=== PATIENT | female | born 1955 | race Caucasian/White ===

== ENCOUNTER → 2016-08-22 | Outpatient (CLI) | payer BC ==
--- NOTE | 2016-08-27 13:17 | MM ---
Reason for exam: screening (asymptomatic). Last mammogram was performed 6 months ago. History: Patient is postmenopausal. Family history of breast cancer in aunt at age 91. Physical Findings: A clinical breast exam by your physician is recommended on an annual basis and results should be correlated with mammographic findings. MG Screening Mammo w CAD Bilateral CC and MLO view(s) were taken. Prior study comparison: July 11, 2014, bilateral MG screening mammo w CAD. There are scattered fibroglandular densities. There is chronic nodularity in the left breast. There is no discrete abnormality. ASSESSMENT: Negative, BI-RAD 1 RECOMMENDATION: Routine screening mammogram of both breasts in 1 year.
== END | disposition home or self-care (01) ==
LOC: RADMAMWWP 12:54
PROVIDERS: ATTEND Family Medicine
DX: Z12.31 Encounter for screening mammogram for malignant neoplasm of breast (principal)

== ENCOUNTER 2016-12-15 20:00 | Emergency (ER) | payer BC ==
[2016-12-15 20:05] VITALS: RESP 18; TEMP 97.6
--- NOTE | 2016-12-15 21:12 | XR ---
EXAMINATION TYPE: XR chest 2V DATE OF EXAM: 12/15/2016 COMPARISON: June 07, 2012. HISTORY: History COPD. TECHNIQUE: Frontal and lateral views of the chest are obtained. FINDINGS: There is no focal air space opacity, pleural effusion, or pneumothorax seen. The cardiac silhouette size is within normal limits. The osseous structures are intact. IMPRESSION: No acute cardiopulmonary process.
[2016-12-15 21:26] VITALS: BP 134/63; PULSE 71
--- NOTE | 2016-12-15 21:26 | ED ---
General Adult HPI - General Chief complaint: ENT Stated complaint: esophageal obstruction Time Seen by Provider: 12/15/16 20:44 Source: patient, EMS, RN notes reviewed Mode of arrival: EMS Limitations: no limitations - History of Present Illness Initial comments: Chief complaint history of present illness a 61-year-old female here with her . The patient came by and was because she had pork bolus stuck in her distal esophagus. He is able to pass it for over an hour more than in the ride in the ambulance she stated she thinks it may have passed. We confirmed his passage by the having the patient drink a glass of very warm water which she could tell went down into her stomach and did not reflux. - Related Data Home Medications Medication Instructions Recorded Confirmed Budesonide-Formot 160-4.5 Mcg 2 puff INHALATION RT-BID@0700,1900 06/07/15 [Symbicort 160-4.5 Mcg Inhaler] Ca/D3/Mag/Zinc/Micki/Anmol/Mgbor 1 tab PO DAILY 06/07/15 12/15/16 [Caltrate 600+D3+Min Chew Tab] HYDROcodone/APAP 5-325MG [[place] 0.5 tab PO QID PRN 12/15/16 12/15/16 5-325] Multivitamins, Thera [Multivitamin 1 tab PO DAILY 12/15/16 12/15/16 (formulary)] Allergies Allergy/AdvReac Type Severity Reaction Status Date / Time No Known Allergies Allergy Verified 12/15/16 21:16 Review of Systems ROS Statement: Those systems with pertinent positive or pertinent negative responses have been documented in the HPI. Review of systems no headache chest pain shortness of breath GI/ problems with time the patient arrived to the emergency room. Past medical problems significant for having had viral hernia diagnosed by endoscopy. Also some possibility of esophagitis. Other problems include COPD previous PE, diverticulosis. The patient has had bowel resection 2 times. Family history noncontributory no known ALLERGIES. The patient is a former smoker denies alcohol use. ROS Other: All systems not noted in ROS Statement are negative. Past Medical History Past Medical History: COPD, Pulmonary Embolus (PE) Additional Past Medical History / Comment(s): diverticulosis,diverticulitis,PE mukul lungs History of Any Multi-Drug Resistant Organisms: None Reported Past Surgical History: Bowel Resection Additional Past Surgical History / Comment(s): bowel resection x3 r/t ruptured diverticuli,Wood procedure Past Anesthesia/Blood Transfusion Reactions: No Reported Reaction Past Psychological History: No Psychological Hx Reported Smoking Status: Former smoker Past Alcohol Use History: None Reported Past Drug Use History: None Reported - Past Family History Father Additional Family Medical History / Comment(s): alcoholism Mother Family Medical History: Cancer Additional Family Medical History / Comment(s): lung General Exam - General Exam Comments Initial Comments: General: The patient is awake and alert, no longer in distress after feeling the food bolus passed into her stomach. Vital signs temperature 97.6 pulse 78 respiratory rate pulse ox 94% room air blood pressure 145/70 The neck is supple, Cardiovascular: There is a regular rate and rhythm. No murmur, rub or gallop is appreciated. Respiratory: Lungs are clear to auscultation, respirations are non-labored, breath sounds are equal. No wheezes, stridor, rales, or rhonchi. Gastrointestinal: Soft, non-distended, non-tender abdomen without masses or organomegaly noted. There is no rebound or guarding present. No CVA tenderness. Bowel sounds are unremarkable. Limitations: no limitations Course Vital Signs 12/15/16 12/15/16 20:02 20:04 Temperature 97.6 F 97.6 F Pulse Rate 77 78 Respiratory 18 18 Rate Blood Pressure 145/70 145/70 O2 Sat by Pulse 93 L 94 L Oximetry Medical Decision Making - Medical Decision Making Medical decision making; X-ray of the chest was done AP and lateral view and reviewed radiologist his findings are there is no focal airspace opacity, pleural effusion, or pneumothorax seen. Cardiac silhouette size is within normal limits. The osseous structures are intact. Impression no acute cardiopulmonary process. As read by Dr. Ren Patient states that during arrived in by the ambulance that she may have passed the foreign body. The sensation of fullness had subsided. I gave the patient a glass is very warm water which she was able to swallow but she did state it felt as though was having some difficulty going through but didn't go through to the stomach. She did not regurgitate. 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 Disposition Clinical Impression: Esophageal obstruction due to food impaction Disposition: HOME SELF-CARE Condition: Stable Instructions: Diet for Stomach Ulcers and Gastritis (ED), Ahn Esophagus (ED ), Esophagitis (ED) Additional Instructions: Only eats things that passed easily. No beef pork or chicken. Call follow up with Dr. Evans tomorrow. Referrals: Nimesh Bob DO [Primary Care Provider] - 1-2 days Time of Disposition: 21:26
== END 2016-12-15 21:42 | disposition home or self-care (01) ==
LOC: EC 20:00
DX: K22.2 Esophageal obstruction (principal); J44.9 Chronic obstructive pulmonary disease, unspecified; Z87.891 Personal history of nicotine dependence; Z79.51 Long term (current) use of inhaled steroids; Z79.899 Other long term (current) drug therapy
CPT/HCPCS: 71020; 99284

== ENCOUNTER → 2017-02-24 | Outpatient (CLI) | payer BC ==
--- NOTE | 2017-02-24 18:17 | CT ---
EXAMINATION TYPE: CT abdomen pelvis w con DATE OF EXAM: 02/24/2017 COMPARISON: 05/29/2015 FINDINGS: lung bases are clear of consolidation. There is no pleural effusion. There is a 1 cm cyst in the righ t lobe of the liver. Bile ducts are not dilated. Gallbladder appears normal. Spleen and pancreas appe ar normal. There is no adrenal mass. Kidneys show satisfactory contrast opacification. There is no hy dronephrosis. There is a 8 mm calculus in the interpolar left kidney. There is no retroperitoneal marco nopathy. There is no ascites. The cecum is low in the pelvis. Appendix appears normal. I see no intes tinal wall thickening. There are no dilated loops. There is previous surgery at the rectum. I see no bony destructive process. HISTORY: RLQ pain with decreased bowel movements CT DLP: 1186 mGycm Automated exposure control for dose reduction was used. TECHNIQUE: Helical acquisition of images was performed from the lung bases through the pelvis. CONTRAST: Performed without Oral Contrast and with IV Contrast, patient injected with 100 mL of Omnipaque 300. IMPRESSION: NONOBSTRUCTING LEFT RENAL CALCULUS. NORMAL APPENDIX. NO SIGN OF ACUTE ABDOMEN AND PELVIS. NO ADVERSE CHANGE COMPARED TO OLD EXAM.
== END | disposition home or self-care (01) ==
LOC: RADCTMAIN 17:15
PROVIDERS: ATTEND Family Medicine
DX: N20.0 Calculus of kidney (principal)
CPT/HCPCS: 74177; Q9967; 74000

== ENCOUNTER → 2017-02-24 | Outpatient (CLI) | payer BC ==
--- NOTE | 2017-02-24 19:32 | XR ---
EXAMINATION TYPE: XR abdomen 1V DATE OF EXAM: 02/24/2017 CLINICAL DATA: 61-year-old female with pain and constipation, [facility] COMPARISON: None FINDINGS: Lung bases are clear. No evidence for free intraperitoneal air. No dilated small bowel or air-fluid levels. Scattered air and stool seen throughout the colon extendi ng distally into the rectum. There appears to be a staple line of the pelvis and moderate stool in th e rectum. 6 mm calcification in the left mid abdomen. Gentle levoconvex curvature of the spine. IMPRESSION: 1. Possible 6 mm left renal calculus. 2. Moderate stool in the rectum. 3. No evidence for free air or bowel obstruction.
== END | disposition home or self-care (01) ==
LOC: RADXRYALE 14:53
PROVIDERS: ATTEND Family Medicine
DX: K59.00 Constipation, unspecified (principal); R10.31 Right lower quadrant pain
CPT/HCPCS: 74000

== ENCOUNTER → 2017-09-16 | Outpatient (CLI) | payer BC ==
--- NOTE | 2017-09-18 11:53 | MM ---
Reason for exam: screening (asymptomatic). Last mammogram was performed 1 year and 1 month ago. History: Patient is postmenopausal. Family history of breast cancer in aunt at age 91. Physical Findings: A clinical breast exam by your physician is recommended on an annual basis and results should be correlated with mammographic findings. MG Screening Mammo w CAD Bilateral CC and MLO view(s) were taken. Prior study comparison: August 22, 2016, bilateral MG screening mammo w CAD. February 26, 2016, left breast MG diagnostic mammo LT w CAD. There are scattered fibroglandular densities. No significant changes when compared with prior studies. ASSESSMENT: Benign, BI-RAD 2 RECOMMENDATION: Routine screening mammogram of both breasts in 1 year.
== END | disposition home or self-care (01) ==
LOC: RADMAMWWP 08:58
PROVIDERS: ATTEND Family Medicine
DX: Z12.31 Encounter for screening mammogram for malignant neoplasm of breast (principal)
CPT/HCPCS: 77067

== ENCOUNTER 2017-09-20 07:27 | Emergency (ER) | payer BC ==
[2017-09-20] MEDS ORDERED: diphenhydrAMINE 50 MG/ML 1 ML VIAL IVP STA (08:20)
[2017-09-20] MEDS ORDERED: SODIUM CHLORIDE 0.9% 1,000 ML IV STA (08:20)
[2017-09-20] MEDS ORDERED: METOCLOPRAMIDE 5 MG/ML 2 ML VIAL IVP STA (08:20)
--- NOTE | 2017-09-20 08:24 | ED ---
Headache HPI - General Chief Complaint: Headache Stated Complaint: Headache, Vomitting Time Seen by Provider: 09/20/17 08:00 Source: RN notes reviewed, old records reviewed Mode of arrival: ambulatory Limitations: no limitations - History of Present Illness Initial Comments: 62-year-old female presents emergency Department chief complaint of a headache for the past week. She initially thought it was sinus that she's been taking Mucinex with Tylenol however she is continued to have a headache. Today it seems to be acutely worse. Patient relates that she's had some episodes of vomiting today. No major history of migraines. She denies any recent fever or chills. Patient states that she seems to have more of a pressure inside her head. She denies any chest pain or shortness of breath. No other symptoms. She is here with her daughter. - Related Data Home Medications Medication Instructions Recorded Confirmed Budesonide-Formot 160-4.5 Mcg 2 puff INHALATION RT-BID@0700,1900 06/07/15 [Symbicort 160-4.5 Mcg Inhaler] Ca/D3/Mag/Zinc/Micki/Anmol/Mgbor 1 tab PO DAILY 06/07/15 09/20/17 [Caltrate 600+D3+Min Chew Tab] HYDROcodone/APAP 5-325MG [[place] 1 tab PO QID PRN 12/15/16 09/20/17 5-325] Multivitamins, Thera [Multivitamin 1 tab PO DAILY 12/15/16 09/20/17 (formulary)] Previous Rx's Medication Instructions Recorded Ondansetron Odt [Zofran Odt] 4 mg PO Q8HR PRN #12 tab 09/20/17 Allergies Allergy/AdvReac Type Severity Reaction Status Date / Time hydromorphone [From Dilaudid] AdvReac Hallucinati Verified 09/20/17 07:40 ons Review of Systems ROS Statement: Those systems with pertinent positive or pertinent negative responses have been documented in the HPI. ROS Other: All systems not noted in ROS Statement are negative. Past Medical History Past Medical History: COPD, Pulmonary Embolus (PE) Additional Past Medical History / Comment(s): diverticulosis,diverticulitis,PE mukul lungs History of Any Multi-Drug Resistant Organisms: None Reported Past Surgical History: Bowel Resection Additional Past Surgical History / Comment(s): bowel resection x3 r/t ruptured diverticuli,Wood procedure. COLONOSCOPY Past Anesthesia/Blood Transfusion Reactions: No Reported Reaction Past Psychological History: No Psychological Hx Reported Smoking Status: Former smoker Past Alcohol Use History: None Reported Past Drug Use History: None Reported - Past Family History Father Additional Family Medical History / Comment(s): alcoholism Mother Family Medical History: Cancer Additional Family Medical History / Comment(s): lung General Exam - General Exam Comments Initial Comments: 62-year-old female. Alert and oriented. No significant distress. Limitations: no limitations Head exam: Present: atraumatic, normocephalic, normal inspection Eye exam: Present: normal appearance, PERRL, EOMI. Absent: scleral icterus, conjunctival injection, periorbital swelling ENT exam: Present: normal exam, mucous membranes moist Neck exam: Present: normal inspection. Absent: tenderness, meningismus, lymphadenopathy Respiratory exam: Present: normal lung sounds bilaterally. Absent: respiratory distress, wheezes, rales, rhonchi, stridor Cardiovascular Exam: Present: regular rate, normal rhythm, normal heart sounds. Absent: systolic murmur, diastolic murmur, rubs, gallop, clicks Extremities exam: Present: normal inspection, full ROM, normal capillary refill. Absent: tenderness, pedal edema, joint swelling, calf tenderness Back exam: Present: normal inspection Neurological exam: Present: alert, oriented X3, CN II-XII intact Expanded Patient oriented to: Present: person, place, time Speech: Present: fluid speech Cranial nerves: EOM's Intact: Normal Cerebellar function: Finger to Nose: Normal Upper motor neuron: Pronator Drift: Normal Sensory exam: Upper Extremity Light Touch: Normal, Lower Extremity Light Touch: Normal Motor strength exam: RUE: 5, LUE: 5, RLE: 5, LLE: 5 Eye Response: (4) open spontaneously Motor Response: (6) obeys commands Verbal Response: (5) oriented [place] Total: 15 Psychiatric exam: Present: normal affect, normal mood Skin exam: Present: warm, dry, intact, normal color. Absent: rash Course Vital Signs 09/20/17 09/20/17 07:37 10:11 Temperature 97.7 F 98.5 F Pulse Rate 75 85 Respiratory 18 16 Rate Blood Pressure 120/74 147/65 O2 Sat by Pulse 95 95 Oximetry - Reevaluation(s) Reevaluation #1: 09/20/17 10:34 Patient was reevaluated after receiving fluids Reglan and Benadryl. She states her headache is gone at this time and she feels better. Reevaluation #2: 09/20/17 10:37 Discussed the case CT findings with Dr. Yoo. Medical Decision Making - Medical Decision Making 62-year-old female presents emergency department today chief complaint of a headache. It's been going on for the past week. She was related to sinuses. She did have some episodes of vomiting today. Patient denies any fever or chills. Neurologically Patient is intact. No focal or lateralizing findings. Blood work was reviewed and normal. Patient CT shows evidence of a old lacunar infarct was present on 2011 computed tomography scan. Patient has no acute abnormalities or findings. She does feel better after receiving Reglan and Benadryl. I discussed this Patient may have had a complex migraine, no signs of sinusitis. 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 I discussed that with the history of the old infarct present 2011 and had a computed tomography scan and then history of lacunar temperature she may need to be on a blood thinner such as a baby aspirin. Discussed that she should follow-up with her primary care provider. At this time I'll discharge the Patient with nausea medication discussed Motrin Tylenol for headaches. Discussed return parameters. She'll follow-up with her PCP. All questions answered and return parameters were discussed. - Lab Data Result diagrams: 09/20/17 08:42 09/20/17 08:42 Lab Results 09/20/17 09/20/17 Range/Units 08:42 08:42 WBC 6.8 (3.8-10.6) k/uL RBC 4.98 (3.80-5.40) m/uL Hgb 15.8 (11.4-16.0) gm/dL Hct 47.9 H (34.0-46.0) % MCV 96.2 (80.0-100.0) fL MCH 31.7 (25.0-35.0) pg MCHC 33.0 (31.0-37.0) g/dL RDW 13.0 (11.5-15.5) % Plt Count 256 (150-450) k/uL Neutrophils % 76 % Lymphocytes % 17 % Monocytes % 4 % Eosinophils % 1 % Basophils % 0 % Neutrophils # 5.2 (1.3-7.7) k/uL Lymphocytes # 1.2 (1.0-4.8) k/uL Monocytes # 0.3 (0-1.0) k/uL Eosinophils # 0.1 (0-0.7) k/uL Basophils # 0.0 (0-0.2) k/uL Sodium 141 (137-145) mmol/L Potassium 3.9 (3.5-5.1) mmol/L Chloride 105 (98-107) mmol/L Carbon Dioxide 27 (22-30) mmol/L Anion Gap 9 mmol/L BUN 12 (7-17) mg/dL Creatinine 0.57 (0.52-1.04) mg/dL Est GFR (CKD-EPI)AfAm >90 (>60 ml/min/1.73 sqM) Est GFR (CKD-EPI)NonAf >90 (>60 ml/min/1.73 sqM) Glucose 97 (74-99) mg/dL Calcium 9.6 (8.4-10.2) mg/dL - Radiology Data Radiology results: report reviewed No acute intracranial normality is noted. Lacunar infarct or prominent perivascular space in the right basal ganglia is unchanged. A tiny lacunae in the left caudate head is new from 2012. Disposition Clinical Impression: Migraine Disposition: HOME SELF-CARE Condition: Good Instructions: Migraine Headache (ED) Additional Instructions: Patient has a follow-up with primary care provider. Recommended Patient should be taking a daily baby aspirin. Patient should use nausea medicine as needed. Continue Motrin Tylenol for further headaches. Return to emergency department if any alarming signs or symptoms occur. Prescriptions: Ondansetron Odt [Zofran Odt] 4 mg PO Q8HR PRN #12 tab PRN Reason: Nausea Is patient prescribed a controlled substance at d/c from ED?: No When asked, does pt state using other controlled substances?: No If prescribed controlled substance>3 days was MAPS reviewed?: No If opioid is for acute pain is fill amount 7 days or less?: No If Rx opioid, was Start Talking consent form obtained?: No Referrals: Nimesh Bob DO [Primary Care Provider] - 1-2 days Time of Disposition: 10:36
[2017-09-20] MEDS: ORPHENADRINE 30 MG/ML 2 ML VIAL IVP STA ×2 (08:39→10:16)
[2017-09-20] MEDS: methylPREDNISolone SOD SUCCI 125 MG/2 ML VIAL IV STA ×2 (08:48→10:16)
[2017-09-20 08:55] LABS: Basophils % (A) 0 %; Eosinophils # (A) 0.1 k/uL (0-0.7); Eosinophils % (A) 1 %; HCT 47.9 % (34.0-46.0); HGB 15.8 gm/dL (11.4-16.0); Lymphocytes # (A) 1.2 k/uL (1.0-4.8); Lymphocytes % (A) 17 %; MCH 31.7 pg (25.0-35.0); MCV 96.2 fL (80.0-100.0); Mean Platelet Volume 6.5; Monocytes # (A) 0.3 k/uL (0-1.0); Monocytes % (A) 4 %; Neutrophils # (A) 5.2 k/uL (1.3-7.7); Neutrophils % (A) 76 %; Platelet Count 256 k/uL (150-450); RBC 4.98 m/uL (3.80-5.40); WBC 6.8 k/uL (3.8-10.6)
[2017-09-20 09:04] LABS: Anion Gap 9 mmol/L; Blood Urea Nitrogen 12 mg/dL (7-17); Calcium 9.6 mg/dL (8.4-10.2); Carbon Dioxide 27 mmol/L (22-30); Chloride 105 mmol/L (98-107); Glucose 97 mg/dL (74-99); Potassium 3.9 mmol/L (3.5-5.1); Sodium 141 mmol/L (137-145)
--- NOTE | 2017-09-20 09:28 | CT ---
EXAMINATION TYPE: CT brain wo con DATE OF EXAM: 09/20/2017 COMPARISON: 02/03/2012 HISTORY: 62-year-old female JIN, vomiting TECHNIQUE: Examination was done in axial plane without intravenous contrast. Coronal and sagittal r econstructions performed. CT DLP: 1036 mGycm Automated exposure control for dose reduction was used. FINDINGS: There is no evidence of acute intracranial hemorrhage, acute ischemic changes, mass, mass-effect, or extra-axial fluid collection. There is no effacement of cerebral sulci or basal subarachnoid cister ns. There is no hydrocephalus. There is no midline shift. Kimble-white matter distinction is preserv ed. Tiny lacune left caudate head. Additional lacune versus prominent perivascular space right basal gang jair unchanged. Paranasal sinuses and mastoid air cells are well pneumatized. Orbits and globes are intact. IMPRESSION: 1. No acute intracranial abnormality seen. 2. Old lacunar infarct or prominent perivascular space in the right basal ganglia is unchanged. A tin y lacune in the left caudate head is new from 2011.
[2017-09-20 10:14] VITALS: RESP 16
[2017-09-20 10:50] VITALS: BP 136/71; PULSE 82; TEMP 97.1
== END 2017-09-20 10:50 | disposition home or self-care (01) ==
LOC: EC 07:27
DX: G43.909 Migraine, unspecified, not intractable, without status migrainosus (principal); R93.0 Abnormal findings on diagnostic imaging of skull and head, not elsewhere classified; J44.9 Chronic obstructive pulmonary disease, unspecified; Z87.891 Personal history of nicotine dependence; Z79.51 Long term (current) use of inhaled steroids; Z79.899 Other long term (current) drug therapy; Z88.5 Allergy status to narcotic agent; Z53.20 Procedure and treatment not carried out because of patient's decision for unspecified reasons
CPT/HCPCS: 36415; 80048; 85025; 70450; 99284; 96374; 96375; 96361 ×2; J1200; J2765

== ENCOUNTER → 2018-11-10 | Outpatient (CLI) | payer BC ==
--- NOTE | 2018-11-10 11:36 | BD ---
EXAMINATION TYPE: Axial Bone Density DATE OF EXAM: 11/10/2018 COMPARISON:2016 CLINICAL HISTORY: disorder of bone Height: 5'2 /2 Weight: 138 FRAX RISK QUESTIONS: Secondary Osteoporosis: RISK FACTORS HISTORY OF: Postmenopausal woman: y MEDICATIONS: Additional Medications: copd, pain, Additional History: EXAM MEASUREMENTS: Bone mineral densitometry was performed using the [employer] System. Bone mineral density as measured about the Lumbar spine is: ----- L1-L4(G/cm2): 1.052 T Score Values are as follows: ----- L2: -1.4 ----- L3:-1.1 ----- L4: -0.7 ----- L1-L4: -1.1 Bone mineral density has: Decreased -1.1% since study of: 08/09/2015 Bone mineral density about the R hip (g/cm2): 0685 Bone mineral density about the L hip (g/cm2): 0.729 T Score values are as follows: -----R Neck: -2.5 -----L Neck: -2.2 -----R Total: -1.9 -----L Total: -1.5 Bone mineral density has: Decreased -0.9% since study of: 08/09/2015 IMPRESSION: Osteopenia (T Score between -2.5 and -1). Borderline osteoporosis. There is slightly increased risk of fracture and the patient may be considered for treatment. Re-Screen 2-5 years. NOTE: T-SCORE=SD OF THE YOUNG ADULT MEAN.
--- NOTE | 2018-11-11 13:50 | MM ---
Reason for exam: screening (asymptomatic). Last mammogram was performed 1 year and 2 months ago. History: Patient is postmenopausal. Family history of breast cancer in aunt at age 91. Physical Findings: A clinical breast exam by your physician is recommended on an annual basis and results should be correlated with mammographic findings. MG 3D Screening Mammo W/Cad Bilateral CC and MLO view(s) were taken. Prior study comparison: September 16, 2017, bilateral MG screening mammo w CAD. August 22, 2016, bilateral MG screening mammo w CAD. There are scattered fibroglandular densities. Benign appearing calcifications in the right breast. No suspicious abnormality. No significant changes when compared with prior studies. ASSESSMENT: Benign, BI-RAD 2 RECOMMENDATION: Routine screening mammogram of both breasts in 1 year.
== END | disposition home or self-care (01) ==
LOC: RADMAMWWP 08:36
PROVIDERS: ATTEND Family Medicine
DX: Z12.31 Encounter for screening mammogram for malignant neoplasm of breast (principal); M85.851 Other specified disorders of bone density and structure, right thigh; M85.852 Other specified disorders of bone density and structure, left thigh; M85.88 Other specified disorders of bone density and structure, other site
CPT/HCPCS: 77063; 77067; 77080

== ENCOUNTER → 2019-11-16 | Outpatient (CLI) | payer BC ==
--- NOTE | 2019-11-17 10:01 | MM ---
Reason for exam: screening (asymptomatic). Last mammogram was performed 1 year ago. History: Patient is postmenopausal. Family history of breast cancer in aunt at age 91. Physical Findings: A clinical breast exam by your physician is recommended on an annual basis and results should be correlated with mammographic findings. MG Screening Mammo w CAD Bilateral CC and MLO view(s) were taken. Prior study comparison: November 10, 2018, bilateral MG 3d screening mammo w/cad. September 16, 2017, bilateral MG screening mammo w CAD. The breast tissue is heterogeneously dense. This may lower the sensitivity of mammography. There is no discrete abnormality. No significant changes when compared with prior studies. ASSESSMENT: Negative, BI-RAD 1 RECOMMENDATION: Routine screening mammogram of both breasts in 1 year.
== END | disposition home or self-care (01) ==
LOC: RADMAMWWP 12:03
PROVIDERS: ATTEND Family Medicine
DX: Z12.31 Encounter for screening mammogram for malignant neoplasm of breast (principal)
CPT/HCPCS: 77067

== ENCOUNTER → 2020-04-05 | Outpatient (CLI) | payer BC ==
[2020-04-05 17:04] LABS: African American GFR (CKD) >90 (>60 ml/min/1.73 sqM); Blood Urea Nitrogen 8 mg/dL (7-17); Non-African American GFR(CKD) >90 (>60 ml/min/1.73 sqM)
--- NOTE | 2020-04-06 05:38 | CT ---
EXAMINATION TYPE: CT iac w con DATE OF EXAM: 04/05/2020 COMPARISON: CT brain 09/20/2017 HISTORY: 64-year-old female Benign paroxysmal vertigo, bilateral. Bilateral tinnitus, right ear otalg ia. CT DLP: 142.7 mGycm Automated exposure control for dose reduction was used. TECHNIQUE: Contiguous high-resolution axial scanning of the temporal bones performed with IV Contras t, patient injected with 100 mL of Isovue 300. Coronal reformatted images obtained. FINDINGS: There is no abnormality of visualized intracranial structures. The skull base appears normal. Bilateral external auditory canals are patent. The middle ear cavities and mastoid air cells are well pneumatized. There is no abnormality of middle ear ossicles. The round and oval windows are normal. There is no abnormality of bony labyrinths. Adjacent dural venous sinuses are patent. The vestibular and cochlear aqueducts are well visualized. The facial nerve canal is normal bilaterally. The internal auditory canal and meati are symmetrical bilaterally. There is no evidence of fractures. Trace mucosal thickening ethmoid air cells. Hypoplastic right frontal sinus Reformatted images confirm above findings. IMPRESSION: 1. No specific abnormality on temporal bone CT. 2. Trace mucosal thickening throughout the ethmoid air cells.
== END | disposition home or self-care (01) ==
LOC: RADCTMAIN 16:15
PROVIDERS: ATTEND Family Medicine
DX: H81.13 Benign paroxysmal vertigo, bilateral (principal); H92.01 Otalgia, right ear; H93.13 Tinnitus, bilateral; Z01.812 Encounter for preprocedural laboratory examination
CPT/HCPCS: 82565; 84520; 70481; 36415; Q9967

== ENCOUNTER → 2020-12-14 | Outpatient (CLI) | payer BC ==
--- NOTE | 2020-12-15 12:15 | MM ---
Reason for exam: screening (asymptomatic). Last mammogram was performed 1 year and 1 month ago. History: Patient is postmenopausal. Family history of breast cancer in aunt at age 91. Took hormonal contraceptives for 10 years. Physical Findings: A clinical breast exam by your physician is recommended on an annual basis and results should be correlated with mammographic findings. MG Screening Mammo w CAD Bilateral CC and MLO view(s) were taken. Prior study comparison: November 16, 2019, bilateral MG screening mammo w CAD. November 10, 2018, bilateral MG 3d screening mammo w/cad. September 16, 2017, bilateral MG screening mammo w CAD. There are scattered fibroglandular densities. No significant changes when compared with prior studies. ASSESSMENT: Benign, BI-RAD 2 RECOMMENDATION: Routine screening mammogram of both breasts in 1 year.
== END | disposition home or self-care (01) ==
LOC: RADMAMWWP 14:49
PROVIDERS: ATTEND Family Medicine
DX: Z12.31 Encounter for screening mammogram for malignant neoplasm of breast (principal)
CPT/HCPCS: 77067

== ENCOUNTER → 2021-03-01 | Outpatient (CLI) | payer BC ==
--- NOTE | 2021-03-01 15:30 | XR ---
EXAMINATION TYPE: XR abdomen 2V DATE OF EXAM: 03/01/2021 HISTORY: Pain. Technique: 3 views of the abdomen are submitted. Comparison: 02/24/2017 Findings: There is no convincing evidence of pneumoperitoneum. The Bowel gas pattern is nonspecific and nonobstructive. No sizable air-fluid levels are seen. No mass effects are noted. 5 mm calculus mid to upper pole left kidney unchanged from prior study. IMPRESSION: 1. Nonspecific nonobstructive bowel gas pattern
== END | disposition home or self-care (01) ==
LOC: RADXRYALE 14:35
PROVIDERS: ATTEND Family Medicine
DX: R10.84 Generalized abdominal pain (principal)
CPT/HCPCS: 74019

== ENCOUNTER → 2021-03-14 | Outpatient (CLI) | payer BC ==
[2021-03-14 16:21] LABS: African American GFR (CKD) >90 (>60 ml/min/1.73 sqM); Blood Urea Nitrogen 10 mg/dL (7-17); Non-African American GFR(CKD) >90 (>60 ml/min/1.73 sqM)
--- NOTE | 2021-03-15 08:46 | CT ---
EXAMINATION TYPE: CT abdomen pelvis w con DATE OF EXAM: 03/14/2021 HISTORY: RLQ pain, spasms. Pt hx Wood's procedure CT DLP: 346.90mGycm Automated Exposure Control for Dose Reduction was Utilized. CONTRAST: CT scan of the abdomen and pelvis is performed with oral and with IV Contrast, patient injected with 100 mL of Isovue 300. COMPARISON: CT abdomen and pelvis February 24, 2017 FINDINGS: LUNG BASES: Mild bibasilar linear scarring and/or atelectasis redemonstrated.. LIVER/GB: Hepatomegaly with prominent right hepatic lobe redemonstrated. PANCREAS: No significant abnormality is seen. SPLEEN: No significant abnormality is seen. ADRENALS: No significant abnormality is seen. KIDNEYS: There are symmetric cortical medullary uptake and excretion with no mild right-sided hydrone phrosis and more moderate left-sided hydronephrosis. There is a 7 mm calculus in the left kidney uppe r midpole level axial image 16 redemonstrated. No hydroureter is present. No intraluminal calculi in the bladder. BOWEL: Oral contrast reaches level of terminal ileum making evaluation of distal bowel suboptimal. In addition patient has very little intra-abdominal fat making evaluation of distal bowel suboptimal. M oderate diffuse colonic fecal prominence. Surgical changes sigmoid rectal colon in the left pelvis re demonstrated. Low-lying cecum into the right pelvis. No abnormal small bowel dilatation. UTERUS/ADNEXA: Anteverted uterus. LYMPH NODES: No greater than 1cm abdominal or pelvic lymph nodes are appreciated. OSSEOUS STRUCTURES: Moderate to severe disc space narrowing lumbosacral junction. Facet arthropathy l ower lumbar levels. OTHER: Mild calcified plaque of the aorta extends into branch vessels. IMPRESSION: Mild to moderate diffuse colonic fecal stasis. No bowel obstruction. Low-lying cecum rede monstrated. New [id number] left greater than right pyelocaliectasis without hydroureter or abbey yed excretion suggests physiologic finding. No new or acute finding otherwise seen.
== END | disposition home or self-care (01) ==
LOC: RADCTMAIN 15:26
PROVIDERS: ATTEND Family Medicine
DX: R10.813 Right lower quadrant abdominal tenderness (principal)
CPT/HCPCS: 82565; 84520; 74177; 36415; Q9967

== ENCOUNTER 2021-07-27 08:07 | Day surgery (SDC) | payer BC ==
[2021-07-26 11:27] VITALS: BMI 20.9
[~2021-07-27 08:07] MED LIST: LACTATED RINGERS 1,000 ML IV SCH
[2021-07-27 08:41] VITALS: TEMP 97
[2021-07-27] MEDS ORDERED: LIDOCAINE 1% (10MG/ML) FOR IV START INTRADERMA ONE (08:41)
[2021-07-27] MEDS ORDERED: LIDOCAINE 2% INJ 20 MG/ML (2 ML VIAL) ONE (09:00)
[2021-07-27] MEDS ORDERED: PROPOFOL 10 MG/ML 20 ML VIAL IV ONE (09:00)
--- NOTE | 2021-07-27 09:33 | P.PCN ---
Date of Procedure: 07/27/21 Procedure(s) Performed: Brief history: Patient is a pleasant 66-year-old white female scheduled for an elective upper endoscopy as well as colonoscopy as a part of evaluation of GERD and intermittent lower abdominal pain for the last several months duration. She is currently on Pepcid 20 mg daily and doing well. She reports no dysphagia. She has prior history of sigmoid colectomyivFor diverticular disease 5 years ago. Procedure performed: Esophagogastroduodenoscopy Colonoscopy with snare polypectomy Preoperative diagnosis: GERD Intermittent lower abdominal pain Anesthesia: MAC Procedure: After informed consent was obtained from the patient was brought into the endoscopy unit and IV sedation was administered by anesthesia under continuous monitoring. Initially upper endoscopy was done. The Olympus GF 160 video endoscope was inserted inserted into the mouth and esophagus intubated without any difficulty and was gradually advanced into the stomach and duodenum and carefully examined. The bulb and second part of the duodenum appeared normal. The scope was then withdrawn into the stomach adequately insufflated with air and upon careful examination the antrum and body, cardia and fundus appeared normal. The scope was then withdrawn into the esophagus. Small sliding type hiatal hernia noted. The GE junction was located at 38 cm to the incisors. It appeared regular with no erythema erosions or ulcerations. There was a distal esophageal stricture identified but he denies the passage of the stomach. As patient is not complaining of intermittent dysphagia no dilation was performed. Rest of the esophagus appeared normal. Patient tolerated the procedure well. At this time the patient continued to remain sedation. Initial digital rectal examination was normal. Olympus CF 160 video colonoscope was then inserted into the rectum and gradually advanced to the cecum without any difficulty. Careful examination was performed as the scope was gradually being withdrawn. The prep was excellent. The cecum, we normal. In the ascending colon there was a 1 cm polyp that was removed by snare polypectomy. Rest of the ascending colon, transverse colon, descending colon, sigmoid colon and rectum appeared normal. Anastomosis from previous sigmoid colectomy was located at 15 cm from the anal verge and appeared patent. Retroflexion was performed in the rectum and no lesions were noted. Patient tolerated the procedure well. Impression: 1. Upper endoscopy revealed early distal esophageal stricture and small hiatal 2. Colonoscopy revealed 1 cm ascending colon polyp status post polypectomy and normal anastomosis in the rectosigmoid colon. Recommendations: Findings of this examination were discussed with the patient as well as her family. She was advised to continue with Pepcid 20 mg daily and follow antireflux measures. If the biopsies of the colon polyp reveals adenoma she can have a repeat colonoscopy in 3 years..
[2021-07-27 09:51] VITALS: BP 114/79; PULSE 87; RESP 16
== END 2021-07-27 10:21 | disposition home or self-care (01) ==
LOC: ORWHC2ENDO 08:07
PROVIDERS: ATTEND Internal Medicine Gastroenterology
DX: D12.2 Benign neoplasm of ascending colon (principal); K21.00 Gastro-esophageal reflux disease with esophagitis, without bleeding; Z79.82 Long term (current) use of aspirin; Z79.891 Long term (current) use of opiate analgesic; Z79.899 Other long term (current) drug therapy; J44.9 Chronic obstructive pulmonary disease, unspecified; Z86.711 Personal history of pulmonary embolism; Z87.19 Personal history of other diseases of the digestive system; Z79.51 Long term (current) use of inhaled steroids; Z90.49 Acquired absence of other specified parts of digestive tract; Z88.5 Allergy status to narcotic agent; K44.9 Diaphragmatic hernia without obstruction or gangrene
CPT/HCPCS: 88305; 45385; 43235; J2704; J2001

== ENCOUNTER → 2021-09-13 | Outpatient (CLI) | payer BC ==
--- NOTE | 2021-09-13 12:03 | US ---
EXAMINATION TYPE: US pelvic complete DATE OF EXAM: 09/13/2021 COMPARISON: NONE CLINICAL HISTORY: 66-year-old female R10.817 Abdominal Tenderness, R10.2 Pelvic. History of bowel jeannie antione, patient has contraction like pain and thinks it is from her surgery and or scar tissue TECHNIQUE: TA. Transabdominal sonographic images of the pelvis were acquired. Date of LMP: 20 years ago FINDINGS: EXAM MEASUREMENTS: Uterus: 4.2 x 3.2 x 2.0 cm Endometrial Stripe: unable to discern Right Ovary: not seen Left Ovary: not seen 1. Uterus: Anteverted and otherwise wnl 2. Endometrium: unable to discern 3. Right Ovary: not seen due to atrophy and/or bowel gas 4. Left Ovary: not seen due to atrophy and/or bowel gas 5. Bilateral Adnexa: wnl 6. Posterior cul-de-sac: wnl IMPRESSION: 1. Unable to discern the endometrial stripe, probably postmenopausal and thin. 2. Unable to identify either ovary.
--- NOTE | 2021-09-13 12:05 | US ---
EXAMINATION TYPE: US abdomen complete DATE OF EXAM: 09/13/2021 COMPARISON: NONE CLINICAL HISTORY: 66-year-old female R10.817 Abdominal Tenderness, R10.2 Pelvic. History of bowel jeannie antione and now is having contraction like abd pain, known left renal stone TECHNIQUE: Multiple sonographic images of the abdomen are obtained. FINDINGS: EXAM MEASUREMENTS: Liver Length: 15.6 cm Gallbladder Wall: 0.2 cm CBD: 0.7 cm Spleen: 7.0 cm Right Kidney: 9.7 x 4.4 x 3.7 cm Left Kidney: 9.0 x 5.1 x 5.5 cm Pancreas: Most of the pancreas is seen. The tail is partially obscured by bowel gas. Liver: wnl Gallbladder: wnl Evidence for sonographic Bennett's sign: no CBD: Mildly dilated. Spleen: wnl Right Kidney: wnl Left Kidney: 0.9cm superior pole stone. Extrarenal pelvis. No calyceal dilatation to suggest hydrone phrosis. Upper IVC: wnl Abd Aorta: Atherosclerotic irregularity throughout without aneurysm. IMPRESSION: 1. Mildly dilated bile duct at 7 mm, acceptable given patient's age. Correlate with alkaline phosphat ase and bilirubin levels. 2. A 9 mm stone in the upper pole the left kidney. 3. No gallstones.
== END | disposition home or self-care (01) ==
LOC: RADUSWWP 07:42
PROVIDERS: ATTEND Family Medicine
DX: N20.0 Calculus of kidney (principal); R10.817 Generalized abdominal tenderness; R10.2 Pelvic and perineal pain
CPT/HCPCS: 76700; 76856

== ENCOUNTER → 2021-12-21 | Outpatient (CLI) | payer BC ==
--- NOTE | 2021-12-21 11:59 | XR ---
EXAMINATION TYPE: XR abdomen 1V DATE OF EXAM: 12/21/2021 COMPARISON: Abdominal radiograph 03/01/2021, CT abdomen pelvis 03/14/2021 HISTORY: [id number] GEN ABD PAIN TECHNIQUE: Single upright view of the abdomen was obtained. FINDINGS: Small bowel demonstrates no evidence for dilatation or air fluid levels. Gas and fecal material is seen in non-distended colon. Anastomosis demonstrated within the pelvis wi th suture material. No convincing evidence for pneumoperitoneum. Pelvic phleboliths. The lung bases are clear. The osseous structures are intact. IMPRESSION: 1. Overall nonobstructive bowel gas pattern.
== END | disposition home or self-care (01) ==
LOC: RADXRYALE 11:23
PROVIDERS: ATTEND Family Medicine
DX: R10.817 Generalized abdominal tenderness (principal)
CPT/HCPCS: 74018

== ENCOUNTER → 2021-12-31 | Outpatient (CLI) | payer BC ==
--- NOTE | 2021-12-31 18:27 | CT ---
EXAMINATION TYPE: CT abdomen pelvis wo con CT DLP: 238.10 mGycm, Automated exposure control for dose reduction was used. DATE OF EXAM: 12/31/2021 6:07 PM COMPARISON: CT abdomen pelvis most recent from 03/15/2021 CLINICAL INDICATION:Female, 66 years old with history of R10.817, G89.29, N20.2, K21.9; abdominal ten derness x1 month. hx of hartmans procedure/ ostomy TECHNIQUE: Axial CT of the abdomen and pelvis. Sagittal and coronal reformats were created on a [employer] workstation. Contrast used: None Oral contrast used: with Oral Contrast FINDINGS: LOWER CHEST: Unremarkable ABDOMEN LIVER: Unremarkable GALLBLADDER AND BILE DUCTS: Unremarkable. PANCREAS: Unremarkable. SPLEEN: Unremarkable. ADRENAL GLANDS: Unremarkable. KIDNEYS AND URETERS: Nonobstructing left renal calculus. Similar prior. No evidence of hydronephrosis . No right calculi identified. Similar dilation of the collecting systems as seen on prior. PELVIS BLADDER: Unremarkable REPRODUCTIVE: Unremarkable. ABDOMEN & PELVIS STOMACH AND BOWEL: No evidence of bowel obstruction. Large amount of stool is seen throughout the col on. Appendix is normal. Postsurgical changes consistent with Wood's pouch with reversal. PERITONEUM: No evidence of pneumoperitoneum or free fluid. VASCULATURE: No evidence of aortic aneurysm. Atherosclerosis of the arterial vasculature. MUSCULOSKELETAL: No acute osseous abnormalities, multilevel disc degeneration changes are seen throug hout the spine. LYMPH NODES: No gross evidence for lymphadenopathy. SOFT TISSUE/ABDOMINAL WALL: Unremarkable IMPRESSION: 1. Similar large stool burden without evidence for acute intra-abdominal process. 2. Nonobstructing left renal calculi
== END | disposition home or self-care (01) ==
LOC: RADCTMAIN 12-24 15:38
PROVIDERS: ATTEND Family Medicine
DX: N20.0 Calculus of kidney (principal)
CPT/HCPCS: 74176

== ENCOUNTER 2022-01-05 09:43 | Emergency (ER) | payer BC ==
--- NOTE | 2022-01-05 10:19 | ED ---
General Adult HPI - General Chief complaint: Abdominal Pain Stated complaint: abd pain Time Seen by Provider: 01/05/22 10:00 Source: patient, RN notes reviewed, old records reviewed Mode of arrival: ambulatory Limitations: no limitations - History of Present Illness Initial comments: This is a 66-year-old female presents emergency Department with a past medical history significant for colectomy. Patient states that was years ago. Patient states over the last 2 weeks she's felt very bloated normally when this occur she is constipated. Patient states she took a laxative and had a bowel movement but continued to have some pressure sensation so she was are doctor and a CAT scan was ordered. Patient states she had a CAT scan at this facility. Patient states she was told the CAT scan didn't show anything. Patient states the pressure in the lower abdomen started to get worse over the last 3 days so she took laxative twice and continues to have the pressureis the sensation that she wants to urinate. Patient states her doctor also told her that she did have some blood in her ear. Patient states the laxative did work and she had a bowel movement so she does not think she is constipated anymore but she still has the pressure in the lower abdomen. - Related Data Home Medications Medication Instructions Recorded Confirmed Budesonide-Formot 160-4.5 Mcg 2 puff INHALATION RT-BID@0700,1900 06/07/15 [Symbicort 160-4.5 Mcg Inhaler] HYDROcodone/APAP 5-325MG [[place] 1 tab PO QID PRN 12/15/16 07/27/21 5-325] Aspirin [Adult Low Dose Aspirin EC] 81 mg PO Q2D 07/26/21 07/27/21 Allergies Allergy/AdvReac Type Severity Reaction Status Date / Time hydromorphone [From Dilaudid] AdvReac Hallucinati Verified 01/05/22 09:44 ons Review of Systems ROS Statement: Those systems with pertinent positive or pertinent negative responses have been documented in the HPI. ROS Other: All systems not noted in ROS Statement are negative. Past Medical History Past Medical History: COPD, Pulmonary Embolus (PE) Additional Past Medical History / Comment(s): diverticulosis,diverticulitis,PE mukul lungs, STOMACH SPASMS, History of Any Multi-Drug Resistant Organisms: None Reported Past Surgical History: Bowel Resection Additional Past Surgical History / Comment(s): bowel resection x3 r/t ruptured diverticuli,Wood procedure. COLONOSCOPY, Past Anesthesia/Blood Transfusion Reactions: No Reported Reaction Past Psychological History: No Psychological Hx Reported Smoking Status: Former smoker Past Alcohol Use History: None Reported Past Drug Use History: None Reported - Past Family History Father Additional Family Medical History / Comment(s): alcoholism Mother Family Medical History: Cancer Additional Family Medical History / Comment(s): lung General Exam - General Exam Comments Initial Comments: GENERAL: Patient is well-developed and well-nourished. Patient is nontoxic and well- hydrated and is in mild distress. ENT: Neck is soft and supple. No significant lymphadenopathy is noted. Oropharynx is clear. Moist mucous membranes. Neck has full range of motion without eliciting any pain. EYES: The sclera were anicteric and conjunctiva were pink and moist. Extraocular movements were intact and pupils were equal round and reactive to light. Eyelids were unremarkable. PULMONARY: Unlabored respirations. Good breath sounds bilaterally. No audible rales rhonchi or wheezing was noted. CARDIOVASCULAR: There is a regular rate and rhythm without any murmurs gallops or rubs. ABDOMEN: Abdomen is soft there is no rebound or guarding there is some slight pain with palpation in the suprapubic region SKIN: Skin is clear with no lesions or rashes and otherwise unremarkable. NEUROLOGIC: Patient is alert and oriented x3. Cranial nerves II through XII are grossly intact. Motor and sensory are also intact. Normal speech, volume and content. Symmetrical smile. MUSCULOSKELETAL: Normal extremities with adequate strength and full range of motion. LYMPHATICS: No significant lymphadenopathy is noted PSYCHIATRIC: Normal psychiatric evaluation. Limitations: no limitations Course Vital Signs 01/05/22 01/05/22 09:44 11:21 Temperature 97.9 F Pulse Rate 82 83 Respiratory 16 18 Rate Blood Pressure 147/80 119/73 O2 Sat by Pulse 93 L 95 Oximetry Medical Decision Making - Medical Decision Making KUB shows some stool in the rectum. Patient did not want to have a enema in the emergency department. - Lab Data Result diagrams: 01/05/22 10:36 01/05/22 10:36 Lab Results 01/05/22 01/05/22 01/05/22 Range/Units 10:36 10:36 10:36 WBC 4.5 (3.8-10.6) k/uL RBC 4.67 (3.80-5.40) m/uL Hgb 15.3 (11.4-16.0) gm/dL Hct 46.8 H (34.0-46.0) % MCV 100.2 H (80.0-100.0) fL MCH 32.7 (25.0-35.0) pg MCHC 32.7 (31.0-37.0) g/dL RDW 12.5 (11.5-15.5) % Plt Count 251 (150-450) k/uL MPV 7.5 Neutrophils % 64 % Lymphocytes % 27 % Monocytes % 5 % Eosinophils % 1 % Basophils % 1 % Neutrophils # 2.8 (1.3-7.7) k/uL Lymphocytes # 1.2 (1.0-4.8) k/uL Monocytes # 0.2 (0-1.0) k/uL Eosinophils # 0.0 (0-0.7) k/uL Basophils # 0.0 (0-0.2) k/uL Sodium 138 (137-145) mmol/L Potassium 4.7 (3.5-5.1) mmol/L Chloride 105 (98-107) mmol/L Carbon Dioxide 25 (22-30) mmol/L Anion Gap 8 mmol/L BUN 6 L (7-17) mg/dL Creatinine 0.54 (0.52-1.04) mg/dL Est GFR (CKD-EPI)AfAm >90 (>60 ml/min/1.73 sqM) Est GFR (CKD-EPI)NonAf >90 (>60 ml/min/1.73 sqM) Glucose 94 (74-99) mg/dL Calcium 9.8 (8.4-10.2) mg/dL Total Bilirubin 1.2 (0.2-1.3) mg/dL AST 43 H (14-36) U/L ALT 28 (4-34) U/L Alkaline Phosphatase 44 (38-126) U/L Total Protein 7.0 (6.3-8.2) g/dL Albumin 4.4 (3.5-5.0) g/dL Amylase 41 (30-110) U/L Lipase 88 (23-300) U/L Urine Color Colorless Urine Appearance Clear (Clear) Urine pH 6.5 (5.0-8.0) Ur Specific [place] 1.006 (1.001-1.035) Urine Protein Negative (Negative) Urine Glucose (UA) Negative (Negative) Urine Ketones Negative (Negative) Urine Blood Negative (Negative) Urine Nitrite Negative (Negative) Urine Bilirubin Negative (Negative) Urine Urobilinogen <2.0 (<2.0) mg/dL Ur Leukocyte Esterase Negative (Negative) Disposition Clinical Impression: Abdominal pain Disposition: HOME SELF-CARE Condition: Good Instructions (If sedation given, give patient instructions): Abdominal Pain (ED) Is patient prescribed a controlled substance at d/c from ED?: No Referrals: Adamaris Santos MD [STAFF PHYSICIAN] - 1-2 days Time of Disposition: 12:09
[2022-01-05 10:49] LABS: Basophils % (A) 1 %; Eosinophils % (A) 1 %; HCT 46.8 % (34.0-46.0); HGB 15.3 gm/dL (11.4-16.0); Lymphocytes # (A) 1.2 k/uL (1.0-4.8); Lymphocytes % (A) 27 %; MCH 32.7 pg (25.0-35.0); MCHC 32.7 g/dL (31.0-37.0); MCV 100.2 fL (80.0-100.0); Mean Platelet Volume 7.5; Monocytes # (A) 0.2 k/uL (0-1.0); Monocytes % (A) 5 %; Neutrophils # (A) 2.8 k/uL (1.3-7.7); Neutrophils % (A) 64 %; Platelet Count 251 k/uL (150-450); RBC 4.67 m/uL (3.80-5.40); RDW 12.5 % (11.5-15.5); WBC 4.5 k/uL (3.8-10.6)
[2022-01-05 10:50] LABS: Appearance,Urine Clear (Clear); Bilirubin,Urine Negative (Negative); Blood,Urine Negative (Negative); Color,Urine Colorless; Glucose,Urine (UA) Negative (Negative); Ketones,Urine Negative (Negative); Leukocyte Esterase,Urine Negative (Negative); Nitrite,Urine Negative (Negative); PH, Urine 6.5 (5.0-8.0); Protein,Urine Negative (Negative); Specific Gravity,Urine 1.006 (1.001-1.035); Urobilinogen,Urine <2.0 mg/dL (<2.0)
--- NOTE | 2022-01-05 10:57 | XR ---
KUB. HISTORY: Abdominal pain. COMPARISON: 12/21/2021. TECHNIQUE: 2 upright views of the abdomen and pelvis are obtained. FINDINGS: The lung bases are clear. There is no free intraperitoneal air. The bowel gas pattern is unremarkable . There are no suspicious abdominal or pelvic calcifications. The osseous structures are intact. IMPRESSION: Nonspecific abdomen without evidence of free air or obstruction.
[2022-01-05 11:03] LABS: ALT 28 U/L (4-34); AST 43 U/L (14-36); African American GFR (CKD) >90 (>60 ml/min/1.73 sqM); Albumin 4.4 g/dL (3.5-5.0); Alkaline Phosphatase 44 U/L (38-126); Amylase 41 U/L (30-110); Anion Gap 8 mmol/L; Blood Urea Nitrogen 6 mg/dL (7-17); Calcium 9.8 mg/dL (8.4-10.2); Carbon Dioxide 25 mmol/L (22-30); Chloride 105 mmol/L (98-107); Glucose 94 mg/dL (74-99); Lipase 88 U/L (23-300); Non-African American GFR(CKD) >90 (>60 ml/min/1.73 sqM); Sodium 138 mmol/L (137-145); Total Bilirubin 1.2 mg/dL (0.2-1.3)
[2022-01-05 11:15] LABS: Potassium 4.7 mmol/L (3.5-5.1)
[2022-01-05 11:22] VITALS: RESP 18
[2022-01-05] MEDS ORDERED: ACETAMINOPHEN ORAL SUSP 160 MG/5 ML CUP PO ONE (11:23)
[2022-01-05 13:08] VITALS: BP 124/76; PULSE 84; TEMP 98
== END 2022-01-05 13:00 | disposition home or self-care (01) ==
LOC: EC 09:43
DX: R10.30 Lower abdominal pain, unspecified (principal); J44.9 Chronic obstructive pulmonary disease, unspecified; Z79.82 Long term (current) use of aspirin; Z88.5 Allergy status to narcotic agent; Z86.711 Personal history of pulmonary embolism
CPT/HCPCS: 36415; 74018; 80053; 81003; 82150; 83690; 85025; 99283

== ENCOUNTER → 2022-01-07 | Outpatient (CLI) | payer BC ==
--- NOTE | 2022-01-08 20:18 | MM ---
Reason for Exam: Screening (asymptomatic). Last mammogram was performed 1 year(s) and 1 month(s) ago. Patient History: Menarche at age 11. First Full-Term at age 15. Postmenopausal. Patient used Hormonal Contraceptives for 10 years. Maternal aunt had breast cancer, age 91. Risk Values: Aditi 5 year model risk: 1.2%. NCI Lifetime model risk: 4.2%. Prior Study Comparison: 08/22/2016 Bilateral Screening Mammogram, [facility]. 09/16/2017 Bilateral Screening Mammogram, [facility]. 11/10/2018 Bilateral Screening Mammogram, [facility]. 11/16/2019 Bilateral Screening Mammogram, [facility]. 12/14/2020 Bilateral Screening Mammogram, [facility]. Tissue Density: The breast tissue is heterogeneously dense. This may lower the sensitivity of mammography. Findings: Analyzed By CAD. Chronic nodularity upper outer quadrant left breast. Benign oil cyst calcification anterior right breast. No significant change from prior exams. Overall Assessment: Benign, BI-RAD 2 Management: Screening Mammogram of both breasts in 1 year. 1. Patient should continue monthly self breast exams. 2. A clinical breast exam by your physician is recommended on an annual basis. 3. This exam should not preclude additional follow-up of suspicious palpable abnormalities. Electronically signed and approved by: Julia Hernandez M.D. Radiologist
== END | disposition home or self-care (01) ==
LOC: RADMAMWWP 13:37
PROVIDERS: ATTEND Family Medicine
DX: Z12.31 Encounter for screening mammogram for malignant neoplasm of breast (principal)
CPT/HCPCS: 77067

== ENCOUNTER → 2022-01-22 | Outpatient (CLI) | payer BC ==
--- NOTE | 2022-01-22 14:56 | XR ---
EXAMINATION TYPE: XR chest 2V DATE OF EXAM: 01/22/2022 2:49 PM COMPARISON: Chest radiographs from 12/15/2016. TECHNIQUE: XR chest 2V Frontal and lateral views of the chest. CLINICAL INDICATION:Female, 66 years old with history of R059,R0602 COUGH,SOB; FINDINGS: Lungs/Pleura: There is flattening of the diaphragm with increased lucency of the lungs. Hyperinflatio n demonstrate. No evidence of pneumothorax, pleural effusion or focal consolidation. Chronic bibasila r senescent changes and minimal atelectasis and/or scarring. Pulmonary vascularity: Unremarkable. Heart/mediastinum: Cardiomediastinal silhouette is unremarkable. Atherosclerotic calcifications are seen in the aorta. Musculoskeletal: No acute osseous pathology. IMPRESSION: 1. No acute cardiopulmonary disease process. 2. COPD changes.
== END | disposition home or self-care (01) ==
LOC: RADXRYALE 14:24
PROVIDERS: ATTEND Family Medicine
DX: R05.9 Cough, unspecified (principal); R06.02 Shortness of breath
CPT/HCPCS: 71046

== ENCOUNTER → 2022-04-16 | Outpatient (CLI) | payer BC ==
--- NOTE | 2022-04-16 16:35 | XR ---
EXAMINATION TYPE: XR chest 2V DATE OF EXAM: 04/16/2022 COMPARISON: 01/22/2022 HISTORY: 67-year-old female J441, R0602 COPD, SOB TECHNIQUE: Frontal and lateral views FINDINGS: Heart normal size. Mild atherosclerotic arch calcifications. Some mild strandy atelectasis in the low er lungs. Some additional patchy density in the periphery of the right base may be a superimposition shadow. No pleural effusion or consolidation seen. IMPRESSION: COPD. Some patchy peripheral right basilar atelectasis versus developing infiltrate. Correlate with p atient's symptoms.
== END | disposition home or self-care (01) ==
LOC: RADXRYALE 11:54
PROVIDERS: ATTEND Family Medicine
DX: J44.1 Chronic obstructive pulmonary disease with (acute) exacerbation (principal); R06.02 Shortness of breath
CPT/HCPCS: 71046

== ENCOUNTER 2022-08-26 07:47 | Inpatient (IN) | payer BC, MEDICARE ==
[2022-08-26] MEDS ORDERED: methylPREDNISolone SOD SUCCI 125 MG/2 ML VIAL IV STA (07:54)
[2022-08-26] MEDS ORDERED: ALBUTEROL NEBULIZED 2.5 MG/3 ML INHALATION STA (07:54)
[2022-08-26] MEDS ORDERED: IPRATROPIUM 0.5 MG/2.5 ML NEBU INHALATION STA (07:54)
--- NOTE | 2022-08-26 07:58 | ED ---
General Adult HPI - General Stated complaint: JUSTINO Time Seen by Provider: 08/26/22 07:47 Source: patient, RN notes reviewed, old records reviewed - History of Present Illness Initial comments: This a 67-year-old female who presents emergency Department complaining of difficulty breathing. Patient has a history of COPD per patient states she has had exacerbation like this before. Patient states her difficulty breathing definite is gotten worse and she was diagnosed with cold a year ago. Patient denies any fever chills per patient states she has been coughing up some yellow sputum. Patient denies any chest pain or palpitations. Patient denies any swelling to the legs or calf tenderness. Patient states she's never been diagnosed with pulmonary edema or congestive heart failure. Patient received a breathing treatment on the way in and did help her feel better. Patient's initial pulse ox was in the mid 80s. Patient is now oxygenating about 90% - Related Data Home Medications Medication Instructions Recorded Confirmed Budesonide-Formot 160-4.5 Mcg 2 puff INHALATION RT-BID@0700,1900 06/07/15 07/27/21 [Symbicort 160-4.5 Mcg Inhaler] HYDROcodone/APAP 5-325MG [[place] 1 tab PO QID PRN 12/15/16 07/27/21 5-325] Aspirin [Adult Low Dose Aspirin EC] 81 mg PO Q2D 07/26/21 07/27/21 Allergies Allergy/AdvReac Type Severity Reaction Status Date / Time hydromorphone [From Dilaudid] AdvReac Hallucinati Verified 08/26/22 08:04 ons Review of Systems ROS Statement: Those systems with pertinent positive or pertinent negative responses have been documented in the HPI. ROS Other: All systems not noted in ROS Statement are negative. Past Medical History Past Medical History: COPD, Pulmonary Embolus (PE) Additional Past Medical History / Comment(s): diverticulosis,diverticulitis,PE mukul lungs, STOMACH SPASMS, History of Any Multi-Drug Resistant Organisms: None Reported Past Surgical History: Bowel Resection Additional Past Surgical History / Comment(s): bowel resection x3 r/t ruptured diverticuli,Wood procedure. COLONOSCOPY, Past Anesthesia/Blood Transfusion Reactions: No Reported Reaction Past Psychological History: No Psychological Hx Reported Smoking Status: Former smoker Past Alcohol Use History: None Reported Past Drug Use History: None Reported - Past Family History Father Additional Family Medical History / Comment(s): alcoholism Mother Family Medical History: Cancer Additional Family Medical History / Comment(s): lung General Exam - General Exam Comments Initial Comments: GENERAL: Patient is well-developed and well-nourished. Patient is nontoxic and well- hydrated and is in mild distress. ENT: Neck is soft and supple. No significant lymphadenopathy is noted. Oropharynx is clear. Moist mucous membranes. Neck has full range of motion without eliciting any pain. EYES: The sclera were anicteric and conjunctiva were pink and moist. Extraocular movements were intact and pupils were equal round and reactive to light. Eyelids were unremarkable. PULMONARY: Patient has expiratory wheezing diffusely CARDIOVASCULAR: There is a regular rate and rhythm without any murmurs gallops or rubs. ABDOMEN: Soft and nontender with normal bowel sounds. SKIN: Skin is clear with no lesions or rashes and otherwise unremarkable. NEUROLOGIC: Patient is alert and oriented x3. Cranial nerves II through XII are grossly intact. Motor and sensory are also intact. Normal speech, volume and content. Symmetrical smile. MUSCULOSKELETAL: Normal extremities with adequate strength and full range of motion. No lower extremity swelling or edema. No calf tenderness. LYMPHATICS: No significant lymphadenopathy is noted PSYCHIATRIC: Normal psychiatric evaluation. Course Vital Signs 08/26/22 08/26/22 08/26/22 07:59 08:44 09:00 Temperature 98.2 F Pulse Rate 104 H 93 80 Respiratory 22 20 18 Rate Blood Pressure 144/87 O2 Sat by Pulse 83 L Oximetry Medical Decision Making - Medical Decision Making EKG shows sinus rhythm at [address] interval 227 QRSs 106 QT interval 367 QTC is 4:15. Patient's EKG shows no ST segment elevation or depression Was pt. sent in by a medical professional or institution (, PA, CLIMBING GUIDE, urgent care, hospital, or custodial...) When possible be specific @ -[No] Did you speak to anyone other than the patient for history (EMS, parent, family, police, friend...)? What history was obtained from this source @ -[No] Did you review nursing and triage notes (agree or disagree)? Why? @ -[I reviewed and agree with nursing and triage notes] Were old charts reviewed (outside hosp., previous admission, EMS record, old EKG, old radiological studies, urgent care reports/EKG's, custodial records)? Report findings @ -I reviewed prior charts in prior lab work and x-rays Differential Diagnosis (chest pain, altered mental status, abdominal pain women, abdominal pain men, vaginal bleeding, weakness, fever, dyspnea, syncope, headache, dizziness, GI bleed, back pain, seizure, CVA, palpatations, mental health, musculoskeletal)? @ -Differential Dyspnea: Coronary syndrome, arrhythmia, tamponade, asthma, COPD, pulmonary embolism, pneumonia, pneumothorax, pulmonary effusion, anaphylaxis, diabetic ketoacidosis, flailed chest, pulmonary contusion, diaphragmatic rupture, anemia, neuromuscular, this is not meant to be an all-inclusive list. EKG interpreted by me (3pts min.). @ -[As above] X-rays interpreted by me (1pt min.). @ -Chest x-ray showed no acute abnormalities CT interpreted by me (1pt min.). @ -[None done] U/S interpreted by me (1pt. min.). @ -[None done] What testing was considered but not performed or refused? (CT, X-rays, U/S, labs)? Why? @ -[None] What meds were considered but not given or refused? Why? @ -[None] Did you discuss the management of the patient with other professionals (professionals i.e. , PA, CLIMBING GUIDE, lab, RT, psych nurse, director social service, patch sander, teacher, disability liaison officer, case monitor)? Give summary @ -Spoke with sounds physician's they agreed to admit the patient Was smoking cessation discussed for >3mins.? @ -[No] Was critical care preformed (if so, how long)? @ -[No] Were there social determinants of health that impacted care today? How? (Homelessness, low income, unemployed, alcoholism, drug addiction, transportation, low edu. Level, literacy, decrease access to med. care, senior care, rehab)? @ -[No] Was there de-escalation of care discussed even if they declined (Discuss DNR or withdrawal of care, Hospice)? DNR status @ -[No] What co-morbidities impacted this encounter? (DM, HTN, Smoking, COPD, CAD, Cancer, CVA, ARF, Chemo, Hep., AIDS, mental health diagnosis, sleep apnea, morbid obesity)? @ -[None] Was patient admitted / discharged? Hospital course, mention meds given and route, prescriptions, significant lab abnormalities, going to OR and other pertinent info. @ -Patient received multiple breathing treatments and steroids in the emergency department she continued to wheeze diffusely she did feel better but not back to her baseline. Patient continues to cough up yellow sputum. Patient was given 2 g Rocephin. I spoke with sounds physician's agreed to admit the patient for the patient wrote admitting orders Undiagnosed new problem with uncertain prognosis? @ -[No] Drug Therapy requiring intensive monitoring for toxicity (Heparin, Nitro, Insulin, Cardizem)? @ -[No] Were any procedures done? @ -[No] Diagnosis/symptom? @ -COPD exacerbation Acute, or Chronic, or Acute on Chronic? @ -Acute Uncomplicated (without systemic symptoms) or Complicated (systemic symptoms)? @ -Complicated Side effects of treatment? @ -[No] Exacerbation, Progression, or Severe Exacerbation? @ -[No] Poses a threat to life or bodily function? How? (Chest pain, [place], [place], pneumonia, PE, COPD, DKA, ARF, appy, cholecystitis, CVA, Diverticulitis, Homicidal, Suicidal, threat to staff... and all critical care pts) @ -Yes patient become hypoxic and then this could lead to end organ dysfunction - Lab Data Result diagrams: 08/26/22 08:15 08/26/22 08:15 Lab Results 08/26/22 08/26/22 08/26/22 Range/Units 08:15 08:15 08:15 WBC 8.1 (3.8-10.6) k/uL RBC 4.56 (3.80-5.40) m/uL Hgb 15.3 (11.4-16.0) gm/dL Hct 45.0 (34.0-46.0) % MCV 98.6 (80.0-100.0) fL MCH 33.4 (25.0-35.0) pg MCHC 33.9 (31.0-37.0) g/dL RDW 12.8 (11.5-15.5) % Plt Count 234 (150-450) k/uL MPV 7.6 Neutrophils % 73 % Lymphocytes % 17 % Monocytes % 8 % Eosinophils % 0 % Basophils % 0 % Neutrophils # 5.9 (1.3-7.7) k/uL Lymphocytes # 1.4 (1.0-4.8) k/uL Monocytes # 0.7 (0-1.0) k/uL Eosinophils # 0.0 (0-0.7) k/uL Basophils # 0.0 (0-0.2) k/uL PT 9.9 (9.0-12.0) sec INR 0.9 (<1.2) APTT 22.0 (22.0-30.0) sec Sodium 140 (137-145) mmol/L Potassium 3.3 L (3.5-5.1) mmol/L Chloride 104 (98-107) mmol/L Carbon Dioxide 30 (22-30) mmol/L Anion Gap 6 mmol/L BUN 6 L (7-17) mg/dL Creatinine 0.52 (0.52-1.04) mg/dL Est GFR (CKD-EPI)AfAm >90 (>60 ml/min/1.73 sqM) Est GFR (CKD-EPI)NonAf >90 (>60 ml/min/1.73 sqM) Glucose 90 (74-99) mg/dL Plasma Lactic Acid Scott (0.7-2.0) mmol/L Calcium 9.1 (8.4-10.2) mg/dL Magnesium 2.1 (1.6-2.3) mg/dL Total Bilirubin 0.7 (0.2-1.3) mg/dL AST 26 (14-36) U/L ALT 28 (4-34) U/L Alkaline Phosphatase 59 (38-126) U/L Troponin I (0.000-0.034) ng/mL NT-Pro-B Natriuret Pep pg/mL Total Protein 6.6 (6.3-8.2) g/dL Albumin 3.8 (3.5-5.0) g/dL Influenza Type A (PCR) (Not Detectd) Influenza Type B (PCR) (Not Detectd) RSV (PCR) (Not Detectd) SARS-CoV-2 (PCR) (Not Detectd) 08/26/22 08/26/22 08/26/22 Range/Units 08:15 08:15 08:15 WBC (3.8-10.6) k/uL RBC (3.80-5.40) m/uL Hgb (11.4-16.0) gm/dL Hct (34.0-46.0) % MCV (80.0-100.0) fL MCH (25.0-35.0) pg MCHC (31.0-37.0) g/dL RDW (11.5-15.5) % Plt Count (150-450) k/uL MPV Neutrophils % % Lymphocytes % % Monocytes % % Eosinophils % % Basophils % % Neutrophils # (1.3-7.7) k/uL Lymphocytes # (1.0-4.8) k/uL Monocytes # (0-1.0) k/uL Eosinophils # (0-0.7) k/uL Basophils # (0-0.2) k/uL PT (9.0-12.0) sec INR (<1.2) APTT (22.0-30.0) sec Sodium (137-145) mmol/L Potassium (3.5-5.1) mmol/L Chloride (98-107) mmol/L Carbon Dioxide (22-30) mmol/L Anion Gap mmol/L BUN (7-17) mg/dL Creatinine (0.52-1.04) mg/dL Est GFR (CKD-EPI)AfAm (>60 ml/min/1.73 sqM) Est GFR (CKD-EPI)NonAf (>60 ml/min/1.73 sqM) Glucose (74-99) mg/dL Plasma Lactic Acid Scott 1.0 (0.7-2.0) mmol/L Calcium (8.4-10.2) mg/dL Magnesium (1.6-2.3) mg/dL Total Bilirubin (0.2-1.3) mg/dL AST (14-36) U/L ALT (4-34) U/L Alkaline Phosphatase (38-126) U/L Troponin I <0.012 (0.000-0.034) ng/mL NT-Pro-B Natriuret Pep 74 pg/mL Total Protein (6.3-8.2) g/dL Albumin (3.5-5.0) g/dL Influenza Type A (PCR) (Not Detectd) Influenza Type B (PCR) (Not Detectd) RSV (PCR) (Not Detectd) SARS-CoV-2 (PCR) (Not Detectd) 08/26/22 Range/Units 08:15 WBC (3.8-10.6) k/uL RBC (3.80-5.40) m/uL Hgb (11.4-16.0) gm/dL Hct (34.0-46.0) % MCV (80.0-100.0) fL MCH (25.0-35.0) pg MCHC (31.0-37.0) g/dL RDW (11.5-15.5) % Plt Count (150-450) k/uL MPV Neutrophils % % Lymphocytes % % Monocytes % % Eosinophils % % Basophils % % Neutrophils # (1.3-7.7) k/uL Lymphocytes # (1.0-4.8) k/uL Monocytes # (0-1.0) k/uL Eosinophils # (0-0.7) k/uL Basophils # (0-0.2) k/uL PT (9.0-12.0) sec INR (<1.2) APTT (22.0-30.0) sec Sodium (137-145) mmol/L Potassium (3.5-5.1) mmol/L Chloride (98-107) mmol/L Carbon Dioxide (22-30) mmol/L Anion Gap mmol/L BUN (7-17) mg/dL Creatinine (0.52-1.04) mg/dL Est GFR (CKD-EPI)AfAm (>60 ml/min/1.73 sqM) Est GFR (CKD-EPI)NonAf (>60 ml/min/1.73 sqM) Glucose (74-99) mg/dL Plasma Lactic Acid Scott (0.7-2.0) mmol/L Calcium (8.4-10.2) mg/dL Magnesium (1.6-2.3) mg/dL Total Bilirubin (0.2-1.3) mg/dL AST (14-36) U/L ALT (4-34) U/L Alkaline Phosphatase (38-126) U/L Troponin I (0.000-0.034) ng/mL NT-Pro-B Natriuret Pep pg/mL Total Protein (6.3-8.2) g/dL Albumin (3.5-5.0) g/dL Influenza Type A (PCR) Not Detected (Not Detectd) Influenza Type B (PCR) Not Detected (Not Detectd) RSV (PCR) Not Detected (Not Detectd) SARS-CoV-2 (PCR) Not Detected (Not Detectd) Disposition Clinical Impression: Acute exacerbation of chronic obstructive pulmonary disease Disposition: ADMITTED IP TO THIS HOSP Referrals: Nimesh Bob DO [Primary Care Provider] - 1-2 days Time of Disposition: 10:11
--- NOTE | 2022-08-26 08:58 | XR ---
EXAMINATION TYPE: XR chest 2V DATE OF EXAM: 08/26/2022 COMPARISON: Chest CT May 28 2022 HISTORY: Difficulty in breathing TECHNIQUE: Frontal and lateral views of the chest are obtained. FINDINGS: Background chronic emphysematous changes are redemonstrated. There is no suspicious focal a ir space opacity, pleural effusion, or pneumothorax seen. The cardiac silhouette size is within norm al limits. The osseous structures are intact. IMPRESSION: Chronic emphysematous change without acute pulmonary process.
[2022-08-26 09:11] LABS: Basophils % (A) 0 %; Eosinophils % (A) 0 %; HGB 15.3 gm/dL (11.4-16.0); Lymphocytes # (A) 1.4 k/uL (1.0-4.8); Lymphocytes % (A) 17 %; MCH 33.4 pg (25.0-35.0); MCHC 33.9 g/dL (31.0-37.0); MCV 98.6 fL (80.0-100.0); Mean Platelet Volume 7.6; Monocytes # (A) 0.7 k/uL (0-1.0); Monocytes % (A) 8 %; Neutrophils # (A) 5.9 k/uL (1.3-7.7); Neutrophils % (A) 73 %; Platelet Count 234 k/uL (150-450); RBC 4.56 m/uL (3.80-5.40); RDW 12.8 % (11.5-15.5); WBC 8.1 k/uL (3.8-10.6)
[2022-08-26 09:13] LABS: ALT 28 U/L (4-34); AST 26 U/L (14-36); African American GFR (CKD) >90 (>60 ml/min/1.73 sqM); Albumin 3.8 g/dL (3.5-5.0); Alkaline Phosphatase 59 U/L (38-126); Anion Gap 6 mmol/L; Blood Urea Nitrogen 6 mg/dL (7-17); Calcium 9.1 mg/dL (8.4-10.2); Carbon Dioxide 30 mmol/L (22-30); Chloride 104 mmol/L (98-107); Glucose 90 mg/dL (74-99); Magnesium 2.1 mg/dL (1.6-2.3); Non-African American GFR(CKD) >90 (>60 ml/min/1.73 sqM); Potassium 3.3 mmol/L (3.5-5.1); Sodium 140 mmol/L (137-145); Total Bilirubin 0.7 mg/dL (0.2-1.3); Total Protein 6.6 g/dL (6.3-8.2)
[2022-08-26 09:17] LABS: INR 0.9 (<1.2); Prothrombin Time 9.9 sec (9.0-12.0)
[2022-08-26] MEDS ORDERED: NALOXONE 0.4 MG/ML 1 ML VIAL IVP PRN (10:11)
[2022-08-26] MEDS ORDERED: AMOXIC-POT CLAV 875-125MG 1 EACH TAB PO SCH (11:00)
[2022-08-26] MEDS ORDERED: MELATONIN 3 MG TABLET PO PRN (12:10)
[2022-08-26] MEDS ORDERED: ONDANSETRON 4 MG/2 ML VIAL IVP PRN (12:10)
[2022-08-26] MEDS ORDERED: bisacodyL 5 MG TABLET.DR PO PRN (12:10)
[2022-08-26] MEDS: HYDROcodone/APAP 5-325MG 1 EACH TAB PO PRN ×2 (12:11→21:24)
[2022-08-26] MEDS: methylPREDNISolone SOD SUCCI 125 MG/2 ML VIAL IV SCH ×3 (12:12→23:27)
--- NOTE | 2022-08-26 12:16 | P.HPIM ---
History of Present Illness H&P Date: 08/26/22 Patient is a 67-year-old female with a history of COPD, diverticulosis, and prior pulmonary embolism who presented to the ER with complaints of shortness of breath. On arrival to the ER she was tachycardic with a pulse of 104 and hypoxic with an O2 sat of 83% on room air. Initial laboratory analysis was remarkable for potassium of 3.3. Influenza A/B/RC/COVID-19 testing was neg ative. Chest x-ray showed no acute process. The ER she received a dose of IV steroid and 2 [id number] breathing treatments without significant improvement. Arrangements were made for admission. Patient seen and examined at bedside. Yesterday she started having worsening shortness of breathing with sputum production that is thick and yellow.Yesterday she couldn't catch her breath and used her husbands oxygen at home. + PND and Stuffinose. She reports that she had ovulated approximately one year ago. Since that time she has been having layers of her breathing and bronchitis about every 6 weeks. She also reports that she had a [employer] basement and has been having work done on the mortar. She noted that the mortar particles were coming up through her air ducts. She has been consulted and they are waiting to change out all of her carpeting positive filled with small pieces of mortar 3-[address] adina anthony wasn't feeling well, she got a medrol and antibiotic shot. She was also given budesonid e for the nebulizer. Has not followed with Dr. Rajput on regular bases but likely will need to go back now, Has been using albuterol inhaler 3-5 times weekly. No fevers or chills at home. Has been feeling more weak and run down. Vital signs reviewed General: nontoxic, no distress, appears at stated age Derm: warm, dry Eyes: EOMI, no lid lag, anicteric sclera, pupils equal round reactive to light ENT: Nose and ears atraumatic, no thrush, no pharyngeal erythema Cardiovascular: S1S2 reg, no murmur, positive posterior tibial pulse bilateral, no edema, capillary refill less than 2 seconds Lungs: Diffuse wheeze bilateral, Decreased bs, 3 word conversational dypnea, no accessory muscle use Abdominal: soft, nontender to palpation, no guarding, no appreciable organomegaly, normal bowel sounds Ext: no gross muscle atrophy, no contractures Neuro: CN II-XII grossly intact, No focal neuro defecit Psych: Alert, oriented, appropriate affect Assessment: Acute exacerbation of COPD Aute hypoxic respiratory failure Abdominal Spasms on chornic norco Hypokalemia Prior tobacco abuse Hx of Pulmonary embolism Imaging: Chest x-ray as reviewed by myself reveals hyperinflation of the lungs, mild cephalization, in no acute interstitial infiltrate Data Review: as above in HPI Plan: - Solumedrol 60 gm IV q 6 hours - Duoneb q 6 hours, and prn, pulmicort and budesonide - mucinex, flonase, claritin - Augmentin - K-lyte replacement 40 meq - Cosnult Dr. Vasquez - repeat CXR in AM The patient is admitted with an anticipated greater than 2 midnight stay for evaluation of []. Surrogate decision-maker: or daughter CODE STATUS:Full DVT prophylaxis: Lovenox Discussed with: Patient, nursing Anticipated discharge date: in 3-[address]: home This dictation was prepared using [employer] voice recognition software. Though every attempt is made to correct errors during during dictation some may still exist. Past Medical History Past Medical History: COPD, Pulmonary Embolus (PE) Additional Past Medical History / Comment(s): diverticulosis,diverticulitis,PE mukul lungs, STOMACH SPASMS, History of Any Multi-Drug Resistant Organisms: None Reported Past Surgical History: Bowel Resection Additional Past Surgical History / Comment(s): bowel resection x3 r/t ruptured diverticuli,Wood procedure. COLONOSCOPY, Past Anesthesia/Blood Transfusion Reactions: No Reported Reaction Past Psychological History: No Psychological Hx Reported Smoking Status: Former smoker Past Alcohol Use History: None Reported Additional Past Alcohol Use History / Comment(s): quit smoking 2004, started smoking 1973:[id number] Past Drug Use History: None Reported - Past Family History Father Additional Family Medical History / Comment(s): alcoholism Mother Family Medical History: Cancer Additional Family Medical History / Comment(s): lung Medications and Allergies Home Medications Medication Instructions Recorded Confirmed Type Budesonide-Formot 160-4.5 Mcg 2 puff INHALATION RT-BID 06/07/15 08/26/22 History [Symbicort 160-4.5 Mcg Inhaler] HYDROcodone/APAP 5-325MG [[place] 1 tab PO QID PRN 12/15/16 08/26/22 History 5-325] Aspirin [Adult Low Dose Aspirin EC] 81 mg PO Q48H 07/26/21 08/26/22 History Albuterol Inhaler [Ventolin Hfa 2 puff INHALATION RT-Q4H PRN 08/26/22 08/26/22 History Inhaler] Azithromycin [Zithromax] 500 mg PO DAILY 08/26/22 08/26/22 History Budesonide 1 mg INHALATION RT-BID PRN 08/26/22 08/26/22 History Calcium Carbonate/Vitamin D3 1 tab PO DAILY 08/26/22 08/26/22 History [Caltrate 600 Plus D3 20 Mcg (800 Iu)] Cyanocobalamin (Vitamin B-12) 1,000 mcg PO DAILY 08/26/22 08/26/22 History [Vitamin B-12] LORazepam [Ativan] 0.5 mg PO DAILY PRN 08/26/22 08/26/22 History Multivitamins, Thera [Multivitamin 1 tab PO DAILY 08/26/22 08/26/22 History (formulary)] predniSONE See Taper PO DIRECTED 08/26/22 08/26/22 History Allergies Allergy/AdvReac Type Severity Reaction Status Date / Time hydromorphone [From Dilaudid] AdvReac Hallucinati Verified 08/26/22 10:57 ons Physical Exam Osteopathic Statement: *. No significant issues noted on an osteopathic structural exam other than those noted in the History and Physical/Consult. Vitals: Vital Signs Temp Pulse Pulse Resp BP BP Pulse Ox 08/26/22 11:10 98.2 F 95 19 138/77 91 L 08/26/22 10:30 98.5 F 86 18 128/75 94 L 08/26/22 10:00 92 18 131/82 94 L 08/26/22 09:00 87 20 97/78 95 08/26/22 08:44 93 20 08/26/22 07:59 98.2 F 104 H 22 144/87 83 L Intake and Output 08/25/22 08/26/22 08/26/22 22:59 06:59 14:59 Other: Weight 52.617 kg Results CBC & Chem 7: 08/26/22 08:15 08/26/22 08:15 Labs: Abnormal Lab Results - Last 24 Hours (Table) 08/26/22 Range/Units 08:15 Potassium 3.3 L (3.5-5.1) mmol/L BUN 6 L (7-17) mg/dL Thrombosis Risk Factor Assmnt - Choose All That Apply Any of the Below Risk Factors Present?: Yes Each Factor Represents 1 point: Abnormal pulmonary function (COPD) Other Risk Factors: Yes Each Risk Factor Represents 2 Points: Age 61-74 years Each Risk Factor Represents 3 Points: History of DVT/PE Other congenital or acquired thrombophilia - If yes, enter type in comment: No Thrombosis Risk Factor Assessment Total Risk Factor Score: 6 Thrombosis Risk Factor Assessment Level: High Risk
[2022-08-26] MEDS: IPRATROPIUM-ALBUTEROL 3 ML NEB INHALATION SCH ×3 (12:35→21:48)
[2022-08-26] MEDS ORDERED: POTASSIUM BICARBONATE/CIT AC 20 MEQ TABLET.EFF PO ONE (13:00)
[2022-08-26] MEDS: guaiFENesin 600 MG TABLET.ER PO SCH ×3 (13:18→21:38)
[2022-08-26] MEDS: AMOXIC-POT CLAV 200-28.5MG/5ML 100 ML BOTTLE PO SCH (21:09)
[2022-08-26] MEDS: BUDESONIDE 1 MG/2 ML NEBU INHALATION SCH (21:48)
[2022-08-26] MEDS: FORMOTEROL FUMARATE 20 MCG/2 ML NEBU INHALATION SCH (21:48)
[2022-08-27] MEDS: LORazepam 0.5 MG TAB PO PRN (00:41)
[2022-08-27] MEDS: methylPREDNISolone SOD SUCCI 125 MG/2 ML VIAL IV SCH ×3 (05:19→17:28)
[2022-08-27] MEDS: HYDROcodone/APAP 5-325MG 1 EACH TAB PO PRN ×3 (05:19→17:28)
[2022-08-27] MEDS: IPRATROPIUM-ALBUTEROL 3 ML NEB INHALATION PRN (05:22)
--- NOTE | 2022-08-27 06:18 | P.CNPUL ---
History of Present Illness Consult date: 08/27/22 Requesting physician: Anita Zapata Reason for consult: COPD Chief complaint: Shortness of breath History of present illness: I am seeing this patient in new consultation today 08/27/2022 for suspected acute COPD exacerbation. Patient is a 67-year-old female with past medical history significant for moderate COPD, pulmonary embolism, diverticulitis with previous colectomy, and is a remote ex-smoker. Has seen Dr. Vasquez a while ago in the office, but no recent visits. Patient presented to the emergency room yesterday morning. She has been experiencing symptoms of acute shortness o f breath and wheezing, that has been worse over the last 24 hours. She's also has an associated productive cough with yellow sputum. She denies any fevers, chills, chest pain, hemoptysis. She denies any sick contacts. She does report frequent bouts of bronchitis over the last couple months. She has been treated on outpatient basis with azithromycin and steroids earlier this week without much relief. She has been using her 's oxygen, and has been utilizing a combination of Symbicort and albuterol inhalers on an outpatient basis. Patient is currently sitting up in bed, on 4 L nasal cannula, in no acute distress. Chest x-ray on arrival showed no acute cardiopulmonary process with chronic emphysematous changes. She was negative for COVID-19, RSV, influenza. CBC on arrival shows no leukocytosis and is unremarkable. Covered on an empiric Augmentin. BMP shows sodium 140, potassium 3.3, chloride 104, serum CO2 30, BUN 6, creatinine 0.52, glucose 90. Troponins negative 1. NT proBNP low. Patient is currently maintained on a combination of budesonide inhalation, formoterol inhalation, DuoNeb's, and IV Solu-Medrol. Lungs are minimally bronchospastic on auscultation. She has been afebrile. Vital signs are stable Review of Systems REVIEW OF SYSTEMS: CONSTITUTIONAL: Denies any recent significant weight loss or weight gain. EYES: Denies change in vision. EARS, NOSE, MOUTH, THROAT: Denies headaches, denies sore throat. CARDIOVASCULAR: Denies chest pain, palpitations or syncopal episodes. RESPIRATORY: See HPI GASTROINTESTINAL: Denies change in appetite, abdominal pain, nausea and vomiting, or diarrhea GENITOURINARY: Denies hematuria, denies infections. MUSKULOSKELETAL: Denies pain, denies swelling. INTEGUMENTARY: Denies rash, denies eczema. NEUROLOGICAL: Denies recent memory loss, no recent seizure activity. PSYCHIATRIC: Denies anxiety, denies depression. HEMATOLOGIC/LYMPHATIC: Denies anemia, denies enlarged lymph node Past Medical History Past Medical History: COPD, Pulmonary Embolus (PE) Additional Past Medical History / Comment(s): diverticulosis,diverticulitis,PE mukul lungs, STOMACH SPASMS, History of Any Multi-Drug Resistant Organisms: None Reported Past Surgical History: Bowel Resection Additional Past Surgical History / Comment(s): bowel resection x3 r/t ruptured diverticuli,Wood procedure. COLONOSCOPY, Past Anesthesia/Blood Transfusion Reactions: No Reported Reaction Past Psychological History: No Psychological Hx Reported Smoking Status: Former smoker Past Alcohol Use History: None Reported Additional Past Alcohol Use History / Comment(s): quit smoking 2004, started smoking 1973:[id number] Past Drug Use History: None Reported - Past Family History Father Additional Family Medical History / Comment(s): alcoholism Mother Family Medical History: Cancer Additional Family Medical History / Comment(s): lung Medications and Allergies Home Medications Medication Instructions Recorded Confirmed Type Budesonide-Formot 160-4.5 Mcg 2 puff INHALATION RT-BID 06/07/15 08/26/22 History [Symbicort 160-4.5 Mcg Inhaler] HYDROcodone/APAP 5-325MG [[place] 1 tab PO QID PRN 12/15/16 08/26/22 History 5-325] Aspirin [Adult Low Dose Aspirin EC] 81 mg PO Q48H 07/26/21 08/26/22 History Albuterol Inhaler [Ventolin Hfa 2 puff INHALATION RT-Q4H PRN 08/26/22 08/26/22 History Inhaler] Azithromycin [Zithromax] 500 mg PO DAILY 08/26/22 08/26/22 History Budesonide 1 mg INHALATION RT-BID PRN 08/26/22 08/26/22 History Calcium Carbonate/Vitamin D3 1 tab PO DAILY 08/26/22 08/26/22 History [Caltrate 600 Plus D3 20 Mcg (800 Iu)] Cyanocobalamin (Vitamin B-12) 1,000 mcg PO DAILY 08/26/22 08/26/22 History [Vitamin B-12] LORazepam [Ativan] 0.5 mg PO DAILY PRN 08/26/22 08/26/22 History Multivitamins, Thera [Multivitamin 1 tab PO DAILY 08/26/22 08/26/22 History (formulary)] predniSONE See Taper PO DIRECTED 08/26/22 08/26/22 History Allergies Allergy/AdvReac Type Severity Reaction Status Date / Time hydromorphone [From Dilaudid] AdvReac Hallucinati Verified 08/26/22 10:57 ons Physical Exam Vitals: Vital Signs Temp Pulse Pulse Resp BP BP Pulse Ox 08/27/22 05:35 87 08/27/22 05:24 93 08/27/22 00:44 97.7 F 91 18 134/75 91 L 08/26/22 22:12 92 08/26/22 22:03 84 08/26/22 22:02 84 08/26/22 21:49 92 08/26/22 20:00 84 18 08/26/22 19:40 97.8 F 84 18 134/74 93 L 08/26/22 16:27 89 18 08/26/22 16:12 97 18 08/26/22 14:18 98.8 F 91 17 114/72 94 L 08/26/22 12:45 94 18 08/26/22 12:36 94 18 08/26/22 11:10 98.2 F 95 19 138/77 91 L 08/26/22 10:30 98.5 F 86 18 128/75 94 L 08/26/22 10:00 92 18 131/82 94 L 08/26/22 09:00 87 20 97/78 95 08/26/22 08:44 93 20 08/26/22 07:59 98.2 F 104 H 22 144/87 83 L Intake and Output 08/26/22 08/26/22 08/27/22 14:59 22:59 06:59 Intake Total 10 960 Balance 10 960 Intake: IV 10 Invasive Line 1 10 Oral 960 Other: Voiding Method Toilet # Voids 4 Weight 52.617 kg GENERAL EXAM: Alert, 59-year-old white female, comfortable in no apparent distress. HEAD: Normocephalic and atraumatic EYES: Normal reaction of pupils, equal size. NOSE: Clear with pink turbinates. THROAT: No erythema or exudates. NECK: No masses, no JVD. CHEST: No chest wall deformity. LUNGS: Equal air entry with minimal expiratory wheezes throughout. no crackles, rhonchi or dullness. On 4 L nasal cannula. No conversational dyspnea or accessory muscle use.. CVS: S1 and S2 normal with no audible murmur, regular rhythm. No extra heart sounds ABDOMEN: No hepatosplenomegaly, active bowel sounds, no guarding or rigidity. SPINE: No scoliosis or deformity SKIN: No rashes CENTRAL NERVOUS SYSTEM: No focal deficits, tone is normal in all 4 extremities. EXTREMITIES: There is no peripheral edema, clubbing, or cyanosis. Peripheral pulses are intact. Results - Laboratory Findings CBC and BMP: 08/26/22 08:15 08/26/22 08:15 PT/INR, D-dimer PT 9.9 sec (9.0-12.0) 08/26/22 08:15 INR 0.9 (<1.2) 08/26/22 08:15 Abnormal lab findings: Abnormal Labs 08/26/22 08:15 Potassium 3.3 L BUN 6 L - Diagnostic Findings Chest x-ray: image reviewed Assessment and Plan Assessment: Acute COPD exacerbation. chest x-ray shows no acute cardiopulmonary process. Negative for influenza, RSV, COVID-19. Acute hypoxic respiratory failure secondary to above, currently on 4 L nasal cannula History of pulmonary embolism History of diverticulitis with prior colectomy Ex-smoker Plan: Patient's medications, labs, chest x-ray reviewed Continue supplement oxygen to maintain an oxygen saturation above 92% Continue empiric antibiotics Check procalcitonin level Continue bronchodilators, formoterol, budesonide, IV Solu-Medrol We will continue to follow I have personally seen and examined the patient, performed the documentation and the assessment and plan as written. Number of minutes spent on the visit:20 Time with Patient: Greater than 30
--- NOTE | 2022-08-27 07:08 | XR ---
EXAMINATION TYPE: XR chest 1V portable DATE OF EXAM: 08/27/2022 6:43 AM COMPARISON: Chest radiographs from 08/26/2022 TECHNIQUE: XR chest 1V portable Frontal view of the chest. CLINICAL INDICATION:Female, 67 years old with history of COPD; FINDINGS: Lungs/Pleura: There is flattening of the diaphragm with increased lucency of the lungs. No evidence o f pneumothorax, pleural effusion or focal consolidation. Pulmonary vascularity: Unremarkable. Heart/mediastinum: Cardiomediastinal silhouette is unremarkable. Musculoskeletal: No acute osseous pathology. IMPRESSION: 1. No acute cardiopulmonary disease process. 2. COPD changes.
[2022-08-27] MEDS: MULTIVITAMINS, THERA 1 EACH TAB PO SCH (08:24)
[2022-08-27] MEDS: ENOXAPARIN 40 MG/0.4 ML SYRINGE SQ SCH (08:29)
[2022-08-27] MEDS: guaiFENesin 600 MG TABLET.ER PO SCH ×2 (08:29→22:03)
[2022-08-27] MEDS: AMOXIC-POT CLAV 200-28.5MG/5ML 100 ML BOTTLE PO SCH ×2 (08:30→22:03)
[2022-08-27] MEDS: FORMOTEROL FUMARATE 20 MCG/2 ML NEBU INHALATION SCH ×2 (08:39→19:23)
[2022-08-27] MEDS: IPRATROPIUM-ALBUTEROL 3 ML NEB INHALATION SCH ×4 (08:39→19:23)
[2022-08-27] MEDS: BUDESONIDE 1 MG/2 ML NEBU INHALATION SCH ×2 (08:39→19:23)
[2022-08-27 10:48] LABS: HCT 43.6 % (37.2-46.3); HGB 14.7 g/dL (12.0-15.0); MCHC 33.7 g/dL (32.0-37.0); MCV 97.8 fL (80.0-97.0); Mean Platelet Volume 9.8 fL (9.5-12.2); NRBC Per 100 WBC 0 /100 WBCS (0.0-0.0); Platelet Count 261 X 10*3/uL (140-440); RBC 4.46 X 10*6/uL (4.10-5.20); RDW 12.9 % (11.5-14.5); WBC 8.14 X 10*3/uL (4.50-10.00)
[2022-08-27 11:04] LABS: African American GFR (CKD) 108.5 (60.0-200.0); Anion Gap 12.2 mmol/L (10.00-18.00); BUN/Creat Ratio 14.5 Ratio (12.00-20.00); Blood Urea Nitrogen 8.7 mg/dL (9.0-27.0); Calcium 9.5 mg/dL (8.7-10.3); Carbon Dioxide 28.8 mmol/L (20.0-27.5); Magnesium 2.2 mg/dL (1.5-2.4); Non-African American GFR(CKD) 93.7 (60.0-200.0); Phosphorus 3.8 mg/dL (2.4-5.1); Potassium 4.3 mmol/L (3.5-5.5)
--- NOTE | 2022-08-27 12:55 | P.PN ---
Subjective Progress Note Date: 08/27/22 I am seeing this patient in new consultation today 08/27/2022 for suspected acu te COPD exacerbation. Patient is a 67-year-old female with past medical history significant for moderate COPD, pulmonary embolism, diverticulitis with previous colectomy, and is a remote ex-smoker. Has seen Dr. Vasquez a while ago in the office, but no recent visits. Patient presented to the emergency room yesterday morning. She has been experiencing symptoms of acute shortness of breath and wheezing, that has been worse over the last 24 hours. She's also has an associated productive cough with yellow sputum. She denies any fevers, chills, chest pain, hemoptysis. She denies any sick contacts. She does report frequent bouts of bronchitis over the last couple months. She has been treated on outpatient basis with azithromycin and steroids earlier this week without much relief. She has been using her 's oxygen, and has been utilizing a combination of Symbicort and albuterol inhalers on an outpatient basis. Patient is currently sitting up in bed, on 4 L nasal cannula, in no acute distress. Chest x-ray on arrival showed no acute cardiopulmonary process with chronic emph ysematous changes. She was negative for COVID-19, RSV, influenza. CBC on arrival shows no leukocytosis and is unremarkable. Covered on an empiric Augmentin. BMP shows sodium 140, potassium 3.3, chloride 104, serum CO2 30, BUN 6, creatinine 0.52, glucose 90. Troponins negative 1. NT proBNP low. Patient is currently maintained on a combination of budesonide inhalation, formoterol inhalation, DuoNeb's, and IV Solu-Medrol. Lungs are minimally bronchospastic on auscultation. She has been afebrile. Vital signs are stable On today's evaluation of 08/27/2022, the patient is still bronchospastic and wheezy. She is getting a little bit anxious and restless on systemic steroids. She was able to give us a sputum sample cultures still pending for now. She is known to have COPD and she was has less for an acute COPD exacerbation. Outpatient therapy for COPD exacerbation with a combination of antibiotics and steroids have failed. The patient's white cell count of 8 with a hemoglobin 14.7 and a platelet count of 261. The sodium level is at 141 with a potassium level of 4.3 with a BUN of 8.7 and a creatinine of 0.6. Covid 19 testing, influenza a and B and RSV were all negative. Objective - Vital Signs Vital signs: Vital Signs Temp 98.1 F 08/27/22 07:31 Pulse 92 08/27/22 11:45 Resp 18 08/27/22 07:31 BP 116/62 08/27/22 07:31 Pulse Ox 91 L 08/27/22 07:31 FiO2 Intake & Output 08/26/22 08/27/22 08/27/22 18:59 06:59 18:59 Intake Total 970 Balance 970 Weight 52.617 kg Intake: IV 10 Invasive Line 1 10 Oral 960 Other: Voiding Method Toilet # Voids 4 - Exam GENERAL EXAM: Alert, 59-year-old white female, comfortable in no apparent distress. HEAD: Normocephalic and atraumatic EYES: Normal reaction of pupils, equal size. NOSE: Clear with pink turbinates. THROAT: No erythema or exudates. NECK: No masses, no JVD. CHEST: No chest wall deformity. LUNGS: Equal air entry with minimal expiratory wheezes throughout. no crackles, rhonchi or dullness. On 4 L nasal cannula. No conversational dyspnea or accessory muscle use.. CVS: S1 and S2 normal with no audible murmur, regular rhythm. No extra heart sounds ABDOMEN: No hepatosplenomegaly, active bowel sounds, no guarding or rigidity. SPINE: No scoliosis or deformity SKIN: No rashes CENTRAL NERVOUS SYSTEM: No focal deficits, tone is normal in all 4 extremities. EXTREMITIES: There is no peripheral edema, clubbing, or cyanosis. Peripheral pulses are intact. - Labs CBC & Chem 7: 08/27/22 05:27 08/27/22 05:27 Labs: Abnormal Lab Results - Last 24 Hours (Table) 08/27/22 08/27/22 Range/Units 05: 05:27 MCV 97.8 H (80.0-97.0) fL MCH 33.0 H (27.0-32.0) pg Carbon Dioxide 28.8 H (20.0-27.5) mmol/L BUN 8.7 L (9.0-27.0) mg/dL Glucose 131 H (70-110) mg/dL Microbiology - Last 24 Hours (Table) 08/26/22 21:54 Sputum Culture - Preliminary Sputum Assessment and Plan Plan: Acute COPD exacerbation. chest x-ray shows no acute cardiopulmonary process. Negative for influenza, RSV, COVID-19. Acute hypoxic respiratory failure secondary to above, currently on 4 L nasal cannula History of pulmonary embolism History of diverticulitis with prior colectomy Ex-smoker Plan: Continue same treatment Limited improvement since yesterday Awaiting sputum Gram stain and culture Continue supplement oxygen to maintain an oxygen saturation above 92% Continue empiric antibiotics Check procalcitonin level Continue bronchodilators, formoterol, budesonide, IV Solu-Medrol We will continue to follow
--- NOTE | 2022-08-27 18:52 | P.PN ---
Subjective Progress Note Date: 08/27/22 Patient is a 67-year-old female with a history of COPD, diverticulosis, and prior pulmonary embolism who presented to the ER with complaints of shortness of breath. On arrival to the ER she was tachycardic with a pulse of 104 and hypoxic with an O2 sat of 83% on room air. Initial laboratory analysis was remarkable for potassium of 3.3. Influenza A/B/RC/COVID-19 testing was negative. Chest x-ray showed no acute process. The ER she received a dose of IV steroid and 2 [id number] breathing treatments without significant improvement. Arrangements were made for admission. She was continued on steroids, bronchodilators, and antibiotics. Pulmonary was consulted. Patient seen and examined at bedside. She is still significantly short of breath today. She denies any nausea or vomiting. She does feel there might be some improvement. She is anxious to talk Dr. Vasquez. Vital signs reviewed General: nontoxic, no distress, appears at stated age Cardiovascular: S1S2 reg, no murmur, positive posterior tibial pulse bilateral, Lungs: Diffuse wheezes bilateral bilateral, no rhonchi, no rales , no accessory muscle use Abdominal: soft, nontender to palpation, no guarding, no appreciable organomegaly Ext: no gross muscle atrophy, no edema, no contractures Neuro: CN II-XI grossly intact, no focal neuro deficits Psych: Alert, oriented, appropriate affect Assessment: Acute exacerbation of COPD Aute hypoxic respiratory failure Abdominal Spasms on chornic norco Hypokalemia Prior tobacco abuse Hx of Pulmonary embolism Imaging: Repeat chest x-ray reviewed by myself shows no acute process, flattening of the diaphragms Data Review: Total signs reviewed and are 98.1, pulse 89, respirations 18, blood pressure 116/62, O2 sat 91% on 2 L Laboratory analysis reviewed potassium improved from yesterday at 4.3 Plan: -Pulmonary note reviewed: Overweight pro-calcitonin - Solumedrol 60 gm IV q 6 hours - Duoneb q 6 hours, and prn, pulmicort and budesonide - mucinex, flonase, claritin - Augmentin - K-lyte replacement 40 meq DVT prophylaxis: SCDs Anticipated discharge date: Pending clinical Course Anticipated discharge place: Pending clinical Course This dictation was prepared using [employer] voice recognition software. Though every attempt is made to correct errors during during dictation some may still exist. Objective - Vital Signs Vital signs: Vital Signs Temp 98.0 F 08/27/22 14:00 Pulse 92 08/27/22 16:00 Resp 19 08/27/22 14:00 BP 128/58 08/27/22 14:00 Pulse Ox 91 L 08/27/22 14:00 FiO2 Intake & Output 08/26/22 08/27/22 08/27/22 18:59 06:59 18:59 Intake Total 970 Balance 970 Weight 52.617 kg Intake: IV 10 Invasive Line 1 10 Oral 960 Other: Voiding Method Toilet # Voids 4 3 - Labs CBC & Chem 7: 08/27/22 05:27 08/27/22 05:27 Labs: Abnormal Lab Results - Last 24 Hours (Table) 08/27/22 08/27/22 Range/Units 05:27 05:27 MCV 97.8 H (80.0-97.0) fL MCH 33.0 H (27.0-32.0) pg Carbon Dioxide 28.8 H (20.0-27.5) mmol/L BUN 8.7 L (9.0-27.0) mg/dL Glucose 131 H (70-110) mg/dL Microbiology - Last 24 Hours (Table) 08/26/22 21:54 Sputum Culture - Preliminary Sputum
[2022-08-28] MEDS: methylPREDNISolone SOD SUCCI 125 MG/2 ML VIAL IV SCH ×5 (00:08→23:50)
[2022-08-28] MEDS: IPRATROPIUM-ALBUTEROL 3 ML NEB INHALATION PRN (05:33)
[2022-08-28] MEDS: HYDROcodone/APAP 5-325MG 1 EACH TAB PO PRN ×3 (05:54→23:50)
[2022-08-28] MEDS: AMOXIC-POT CLAV 200-28.5MG/5ML 100 ML BOTTLE PO SCH ×2 (09:04→20:36)
[2022-08-28] MEDS: guaiFENesin 600 MG TABLET.ER PO SCH ×2 (09:04→20:35)
[2022-08-28] MEDS: MULTIVITAMINS, THERA 1 EACH TAB PO SCH (09:05)
[2022-08-28] MEDS: ENOXAPARIN 40 MG/0.4 ML SYRINGE SQ SCH (09:05)
[2022-08-28] MEDS: BUDESONIDE 1 MG/2 ML NEBU INHALATION SCH ×2 (09:48→20:45)
[2022-08-28] MEDS: FORMOTEROL FUMARATE 20 MCG/2 ML NEBU INHALATION SCH ×2 (09:48→20:45)
[2022-08-28] MEDS: IPRATROPIUM-ALBUTEROL 3 ML NEB INHALATION SCH ×4 (09:49→20:45)
--- NOTE | 2022-08-28 12:34 | P.PN ---
Subjective Progress Note Date: 08/28/22 I am seeing this patient in new consultation today 08/27/2022 for suspected acu te COPD exacerbation. Patient is a 67-year-old female with past medical history significant for moderate COPD, pulmonary embolism, diverticulitis with previous colectomy, and is a remote ex-smoker. Has seen Dr. Vasquez a while ago in the office, but no recent visits. Patient presented to the emergency room yesterday morning. She has been experiencing symptoms of acute shortness of breath and wheezing, that has been worse over the last 24 hours. She's also has an associated productive cough with yellow sputum. She denies any fevers, chills, chest pain, hemoptysis. She denies any sick contacts. She does report frequent bouts of bronchitis over the last couple months. She has been treated on outpatient basis with azithromycin and steroids earlier this week without much relief. She has been using her 's oxygen, and has been utilizing a combination of Symbicort and albuterol inhalers on an outpatient basis. Patient is currently sitting up in bed, on 4 L nasal cannula, in no acute distress. Chest x-ray on arrival showed no acute cardiopulmonary process with chronic emph ysematous changes. She was negative for COVID-19, RSV, influenza. CBC on arrival shows no leukocytosis and is unremarkable. Covered on an empiric Augmentin. BMP shows sodium 140, potassium 3.3, chloride 104, serum CO2 30, BUN 6, creatinine 0.52, glucose 90. Troponins negative 1. NT proBNP low. Patient is currently maintained on a combination of budesonide inhalation, formoterol inhalation, DuoNeb's, and IV Solu-Medrol. Lungs are minimally bronchospastic on auscultation. She has been afebrile. Vital signs are stable On today's evaluation of 08/27/2022, the patient is still bronchospastic and wheezy. She is getting a little bit anxious and restless on systemic steroids. She was able to give us a sputum sample cultures still pending for now. She is known to have COPD and she was has less for an acute COPD exacerbation. Outpatient therapy for COPD exacerbation with a combination of antibiotics and steroids have failed. The patient's white cell count of 8 with a hemoglobin 14.7 and a platelet count of 261. The sodium level is at 141 with a potassium level of 4.3 with a BUN of 8.7 and a creatinine of 0.6. Covid 19 testing, influenza a and B and RSV were all negative. On today's evaluation of 08/28/2022, patient is shows limited improvement in acute choked exacerbation. She's to bronchospastic and wheezy and short of breath. She gets short of breath with limited amount of activity. She is on oxygen at 4 L/m nasal cannula. She is on IV Solu-Medrol 60 mg every 6 hours. She is also on empiric antibiotic coverage with Augmentin. Noted the chest x- ray showed no acute pulmonary infiltrates. The patient was able to give us a sputum sample that is also still pending for now. She is a bit anxious and this is probably related to her COPD and shortness of breath and steroids affect. The labs from yesterday was noted. No significant leukocytosis. Influenza, Covid 19 and RSV were all negative. The patient's had a pro-calcitonin level of 0.02. Objective - Vital Signs Vital signs: Vital Signs Temp 97.8 F 08/28/22 07:18 Pulse 100 08/28/22 10:19 Resp 19 08/28/22 07:18 BP 125/76 08/28/22 07:18 Pulse Ox 94 L 08/28/22 07:18 FiO2 Intake & Output 08/27/22 08/28/22 08/28/22 18:59 06:59 18:59 Other: # Voids 3 2 - Exam GENERAL EXAM: Alert, 59-year-old white female, comfortable in no apparent distress. HEAD: Normocephalic and atraumatic EYES: Normal reaction of pupils, equal size. NOSE: Clear with pink turbinates. THROAT: No erythema or exudates. NECK: No masses, no JVD. CHEST: No chest wall deformity. LUNGS: Equal air entry with minimal expiratory wheezes throughout. no crackles, rhonchi or dullness. On 4 L nasal cannula. No conversational dyspnea or accessory muscle use.. CVS: S1 and S2 normal with no audible murmur, regular rhythm. No extra heart sounds ABDOMEN: No hepatosplenomegaly, active bowel sounds, no guarding or rigidity. SPINE: No scoliosis or deformity SKIN: No rashes CENTRAL NERVOUS SYSTEM: No focal deficits, tone is normal in all 4 extremities. EXTREMITIES: There is no peripheral edema, clubbing, or cyanosis. Peripheral pulses are intact. - Labs CBC & Chem 7: 08/27/22 05:27 08/27/22 05:27 Labs: Abnormal Lab Results - Last 24 Hours (Table) 08/27/22 08/27/22 Range/Units 05:27 05:27 MCV 97.8 H (80.0-97.0) fL MCH 33.0 H (27.0-32.0) pg Carbon Dioxide 28.8 H (20.0-27.5) mmol/L BUN 8.7 L (9.0-27.0) mg/dL Glucose 131 H (70-110) mg/dL Microbiology - Last 24 Hours (Table) 08/26/22 21:54 Sputum Culture - Preliminary Sputum Assessment and Plan Plan: Acute COPD exacerbation. chest x-ray shows no acute cardiopulmonary process. Negative for influenza, RSV, COVID-19. The patient is still having shortness of breath and limited improvement since yesterday while being on bronchodilators and systemic steroids. The patient is also on empiric antibiotic coverage with Augmentin. Acute hypoxic respiratory failure secondary to above, currently on 4 L nasal cannula History of pulmonary embolism History of diverticulitis with prior colectomy Ex-smoker Plan: Continue same treatment Continue high-dose IV Solu-Medrol 60 mg every 6 hours Continue bronchodilators in addition to Perforomist and Pulmicort updrafts Continue oral Augmentin Awaiting sputum Gram stain and culture Continue supplement oxygen to maintain an oxygen saturation above 92% Continue empiric antibiotics Check procalcitonin level was low Titrate FiO2 to maintain a saturation above 90% We will continue to follow
[2022-08-28] MEDS ORDERED: KETOROLAC 15 MG/ML 1 ML VIAL IVP PRN (15:14)
--- NOTE | 2022-08-28 15:19 | P.PN ---
Subjective Progress Note Date: 08/28/22 (delayed charting seen at 1030) Patient is a 67-year-old female with a history of COPD, diverticulosis, and prior pulmonary embolism who presented to the ER with complaints of shortness of breath. On arrival to the ER she was tachycardic with a pulse of 104 and hypoxic with an O2 sat of 83% on room air. Initial laboratory analysis was remarkable for potassium of 3.3. Influenza A/B/RC/COVID-19 testing was negative. Chest x-ray showed no acute process. The ER she received a dose of IV steroid and 2 [id number] breathing treatments without significant improvement. Arrangements were made for admission. She was continued on steroids, bronchodilators, and antibiotics. Pulmonary was consulted. Her pro- keagan was low. She had slow improvement. Patient seen and examined at bedside. She reports that this morning she was feeling really short of breath when she tried to brush her teeth. She is feeling frustrated that her breathing has not improved more since admission. She also feels some chest tightness. She states she has had more productive sputum today. Vital signs reviewed General: nontoxic, no distress, appears at stated age Cardiovascular: S1S2 reg, no murmur, positive posterior tibial pulse bilateral, Lungs: Diffuse wheezes bilateral- improved air movement in the bases, no rhonchi, no rales , no accessory muscle use Abdominal: soft, nontender to palpation, no guarding, no appreciable organomegaly Ext: no gross muscle atrophy, no edema, no contractures Neuro: CN II-XI grossly intact, no focal neuro deficits Psych: Alert, oriented, appropriate affect Assessment: Acute exacerbation of COPD Acute hypoxic respiratory failure Abdominal Spasms on chronic norco Hypokalemia Prior tobacco abuse Hx of Pulmonary embolism Imaging: None new Data Review: Vital signs reviewed Gen. 97.8, pulse 78, respirations 19, blood pressure 12 5/76, O2 sat 94% on 4 L nasal cannula Blood cultures-no growth today Sputum culture- few gram-positive cocci, few budding yeast Plan: --Pulmonary recs note reviewed: Continue with current plan of care - Solumedrol 60 gm IV q 6 hours D#3 - Duoneb q 6 hours, and prn, pulmicort and budesonide - mucinex, flonase, claritin - Augmentin - Rx for home nebulizer completed DVT prophylaxis: SCDs Anticipated discharge date: Pending clinical Course Anticipated discharge place: Pending clinical Course This dictation was prepared using [employer] voice recognition software. Though every attempt is made to correct errors during during dictation some may still exist. Objective - Vital Signs Vital signs: Vital Signs Temp 98.0 F 08/28/22 14:47 Pulse 92 08/28/22 14:47 Resp 19 08/28/22 14:47 BP 122/74 08/28/22 14:47 Pulse Ox 94 L 08/28/22 14:47 FiO2 Intake & Output 08/27/22 08/28/22 08/28/22 18:59 06:59 18:59 Other: # Voids 3 2 - Labs CBC & Chem 7: 08/27/22 05:27 08/27/22 05:27 Labs: Microbiology - Last 24 Hours (Table) 08/26/22 08:30 Blood Culture - Preliminary Blood 08/26/22 08:15 Blood Culture - Preliminary Blood 08/26/22 21:54 Gram Stain - Preliminary Sputum Sputum Culture - Preliminary
[2022-08-29] MEDS: IPRATROPIUM-ALBUTEROL 3 ML NEB INHALATION PRN ×2 (00:19→04:10)
[2022-08-29] MEDS: methylPREDNISolone SOD SUCCI 125 MG/2 ML VIAL IV SCH ×4 (04:53→23:24)
[2022-08-29] MEDS: LORazepam 0.5 MG TAB PO PRN (04:54)
[2022-08-29] MEDS: ENOXAPARIN 40 MG/0.4 ML SYRINGE SQ SCH (07:42)
[2022-08-29] MEDS: MULTIVITAMINS, THERA 1 EACH TAB PO SCH (07:43)
[2022-08-29] MEDS: AMOXIC-POT CLAV 200-28.5MG/5ML 100 ML BOTTLE PO SCH ×2 (07:43→21:17)
[2022-08-29] MEDS: guaiFENesin 600 MG TABLET.ER PO SCH ×2 (07:43→21:15)
[2022-08-29] MEDS: BUDESONIDE 1 MG/2 ML NEBU INHALATION SCH ×2 (08:16→20:10)
[2022-08-29] MEDS: FORMOTEROL FUMARATE 20 MCG/2 ML NEBU INHALATION SCH ×2 (08:17→20:10)
[2022-08-29] MEDS: IPRATROPIUM-ALBUTEROL 3 ML NEB INHALATION SCH ×4 (08:17→20:10)
[2022-08-29] MEDS: HYDROcodone/APAP 5-325MG 1 EACH TAB PO PRN ×3 (11:09→21:15)
[2022-08-29] MEDS: NYSTATIN 100,000 UNIT/ML SUSP 500,000 UNIT/5 ML CUP PO SCH ×3 (12:47→21:16)
--- NOTE | 2022-08-29 15:51 | P.PN ---
Subjective Progress Note Date: 08/29/22 I am seeing this patient in new consultation today 08/27/2022 for suspected acu te COPD exacerbation. Patient is a 67-year-old female with past medical history significant for moderate COPD, pulmonary embolism, diverticulitis with previous colectomy, and is a remote ex-smoker. Has seen Dr. Vasquez a while ago in the office, but no recent visits. Patient presented to the emergency room yesterday morning. She has been experiencing symptoms of acute shortness of breath and wheezing, that has been worse over the last 24 hours. She's also has an associated productive cough with yellow sputum. She denies any fevers, chills, chest pain, hemoptysis. She denies any sick contacts. She does report frequent bouts of bronchitis over the last couple months. She has been treated on outpatient basis with azithromycin and steroids earlier this week without much relief. She has been using her 's oxygen, and has been utilizing a combination of Symbicort and albuterol inhalers on an outpatient basis. Patient is currently sitting up in bed, on 4 L nasal cannula, in no acute distress. Chest x-ray on arrival showed no acute cardiopulmonary process with chronic emph ysematous changes. She was negative for COVID-19, RSV, influenza. CBC on arrival shows no leukocytosis and is unremarkable. Covered on an empiric Augmentin. BMP shows sodium 140, potassium 3.3, chloride 104, serum CO2 30, BUN 6, creatinine 0.52, glucose 90. Troponins negative 1. NT proBNP low. Patient is currently maintained on a combination of budesonide inhalation, formoterol inhalation, DuoNeb's, and IV Solu-Medrol. Lungs are minimally bronchospastic on auscultation. She has been afebrile. Vital signs are stable On today's evaluation of 08/27/2022, the patient is still bronchospastic and wheezy. She is getting a little bit anxious and restless on systemic steroids. She was able to give us a sputum sample cultures still pending for now. She is known to have COPD and she was has less for an acute COPD exacerbation. Outpatient therapy for COPD exacerbation with a combination of antibiotics and steroids have failed. The patient's white cell count of 8 with a hemoglobin 14.7 and a platelet count of 261. The sodium level is at 141 with a potassium level of 4.3 with a BUN of 8.7 and a creatinine of 0.6. Covid 19 testing, influenza a and B and RSV were all negative. On today's evaluation of 08/28/2022, patient is shows limited improvement in acute choked exacerbation. She's to bronchospastic and wheezy and short of breath. She gets short of breath with limited amount of activity. She is on oxygen at 4 L/m nasal cannula. She is on IV Solu-Medrol 60 mg every 6 hours. She is also on empiric antibiotic coverage with Augmentin. Noted the chest x- ray showed no acute pulmonary infiltrates. The patient was able to give us a sputum sample that is also still pending for now. She is a bit anxious and this is probably related to her COPD and shortness of breath and steroids affect. The labs from yesterday was noted. No significant leukocytosis. Influenza, Covid 19 and RSV were all negative. The patient's had a pro-calcitonin level of 0.02. 08/29/2022, seeing the patient for a follow-up. Patient is looking slightly better on today's evaluation. Nevertheless, I decided to continue the IV Solu- Medrol the same doses for now. She still having coughing and the patient sputum sample was positive for Emily albicans. She has developed some oropharyngeal candidiasis. No fever. No chills. No pleurisy. No hemoptysis. No chest pain. No other complaints otherwise for now. No recent labs are available. Her pro calcitonin level is low and the chest x-ray is negative for any pneumonia. Objective - Vital Signs Vital signs: Vital Signs Temp 98.6 F 08/29/22 07:44 Pulse 96 08/29/22 11:20 Resp 19 08/29/22 07:45 BP 126/70 08/29/22 07:44 Pulse Ox 93 L 08/29/22 08:20 FiO2 Intake & Output 08/28/22 08/29/22 08/29/22 18:59 06:59 18:59 Other: Voiding Method Toilet Toilet # Voids 3 2 2 - Exam GENERAL EXAM: Alert, 59-year-old white female, comfortable in no apparent distress. HEAD: Normocephalic and atraumatic EYES: Normal reaction of pupils, equal size. NOSE: Clear with pink turbinates. THROAT: No erythema or exudates. NECK: No masses, no JVD. CHEST: No chest wall deformity. LUNGS: Equal air entry with minimal expiratory wheezes throughout. no crackles, rhonchi or dullness. On 4 L nasal cannula. No conversational dyspnea or accessory muscle use.. CVS: S1 and S2 normal with no audible murmur, regular rhythm. No extra heart sounds ABDOMEN: No hepatosplenomegaly, active bowel sounds, no guarding or rigidity. SPINE: No scoliosis or deformity SKIN: No rashes CENTRAL NERVOUS SYSTEM: No focal deficits, tone is normal in all 4 extremities. EXTREMITIES: There is no peripheral edema, clubbing, or cyanosis. Peripheral pulses are intact. - Labs CBC & Chem 7: 08/27/22 05:27 08/27/22 05:27 Labs: Microbiology - Last 24 Hours (Table) 08/26/22 08:30 Blood Culture - Preliminary Blood 08/26/22 08:15 Blood Culture - Preliminary Blood 08/26/22 21:54 Gram Stain - Final Sputum Sputum Culture - Final Emily albicans Assessment and Plan Plan: Acute COPD exacerbation. chest x-ray shows no acute cardiopulmonary process. Negative for influenza, RSV, COVID-19. The patient is still having shortness of breath and limited improvement since yesterday while being on bronchodilators and systemic steroids. The patient is also on empiric antibiotic coverage with Augmentin. Clinically improved on today's evaluation Acute hypoxic respiratory failure secondary to above, currently on 4 L nasal cannula History of pulmonary embolism History of diverticulitis with prior colectomy Ex-smoker Oropharyngeal candidiasis Plan: Clinically improving slowly Continue same treatment Continue high-dose IV Solu-Medrol 60 mg every 6 hours Continue bronchodilators in addition to Perforomist and Pulmicort updrafts Continue oral Augmentin and add nystatin for oropharyngeal candidiasis Awaiting sputum Gram stain and culture Continue supplement oxygen to maintain an oxygen saturation above 92% Continue empiric antibiotics Check procalcitonin level was low Titrate FiO2 to maintain a saturation above 90% We will continue to follow
[2022-08-29] MEDS ORDERED: MAGNESIUM HYDROXIDE 2,400 MG/10 ML CUP PO PRN (17:35)
--- NOTE | 2022-08-29 18:21 | P.PN ---
Subjective Progress Note Date: 08/29/22 Hospital course: Patient is a 67-year-old female with a history of COPD not on home oxygen dependent, diverticulosis, and prior pulmonary embolism. She presented to the emergency department on 08/26/22 with a chief complaint of shortness of breath. On arrival to the ER she was tachycardic with a pulse of 104 and hypoxic with an O2 sat of 83% on room air requiring oxygen supplementation. Labs were completed and reviewed. CBC, coags, and CMP were unremarkable with the exception of mild hypokalemia with potassium of 3.3. Lactic acid normal findings at 1.0. Troponin negative at less than 0.012 and pro-BMP is less than 0.012. Influenza A, influenza B, RSV, and Covid PCR were negative. Chest x-ray showing flattening of the diaphragm with increased lucency in the lungs consistent with COPD, negative for acute cardiopulmonary process. showed no acute process. EKG was completed showing normal sinus rhythm at 90 bpm with an incomplete right bundle branch block upon personal review and interpretation. Patient was admitted under our services with consultation to pulmonology. She was continued on supplemental oxygen, steroids, bronchodilators, and antibiotics. Pro-calcitonin was obtained resulting in 0.02. She had slow improvement and this morning remains on 4 L O2 via nasal cannula with SpO2 of 93%. Physical exam: Patient seen and examined at bedside. Patient resting comfortably at this time she is on 4 L O2 via nasal cannula. Patient reports breathing comfortably in bed but reports shortness of breath with exertion. She currently denies having any chest pain, palpitations, dizziness, lightheadedness, or any other complaints at this time. General: non toxic, no distress, appears at stated age Derm: warm, dry Head: atraumatic, normocephalic, symmetric Eyes: EOMI, no lid lag, anicteric sclera Mouth: no lip lesion, mucus membranes moist Cardiovascular: S1S2 reg, no murmur, positive posterior tibial pulse bilateral, Lungs: Diminished with soft expiratory wheezes bilaterally. no rhonchi, no rales , no accessory muscle use Abdominal: soft, nontender to palpation, no guarding, no appreciable organomegaly Ext: no gross muscle atrophy, no edema, no contractures Neuro: CN II-XI grossly intact, no focal neuro deficits Psych: Alert, oriented, appropriate affect Assessment and plan of care: Acute exacerbation of COPD Acute hypoxic respiratory failure Abdominal Spasms on chronic norco Hypokalemia Prior tobacco abuse Hx of Pulmonary embolism -Pulmonary following and discussed plan of care with Dr. Vasquez who is recommending continued plan of care at this time - Solumedrol 60 gm IV q 6 hours D#4 - Duoneb q 6 hours, and prn, pulmicort and budesonide - mucinex, flonase, claritin - Augmentin day 4 of 10 - Rx for home nebulizer completed -Imaging: None new -Data Review: Vital signs reviewed and stable. Blood pressure 126/70, heart rate 93, respiratory rate 19, temp 98.6F, and SpO2 of 92% on 4 L O2 via nasal cannula. -Blood cultures-no growth today -Sputum culture- Emily albicans CODE STATUS: Full code DVT prophylaxis: Lovenox Anticipated discharge date: Pending clinical Course Anticipated discharge place: Pending clinical Course Patient was seen independently by Nurse Pracitioner. This document was prepared using [employer] dictation software. Please allow for errors in reference test clerk, while rare they do occur. I reviewed the documentation as provided by the JALEN above, who is the original author of this note. I agree with the documented assessment and plan, with the following changes: none Objective - Vital Signs Vital signs: Vital Signs Temp 98.6 F 08/29/22 07:44 Pulse 100 08/29/22 08:31 Resp 19 08/29/22 07:44 BP 126/70 08/29/22 07:44 Pulse Ox 93 L 08/29/22 08:20 FiO2 Intake & Output 08/28/22 08/29/22 08/29/22 18:59 06:59 18:59 Other: Voiding Method Toilet # Voids 3 2 - Labs CBC & Chem 7: 08/27/22 05:27 08/27/22 05:27 Labs: Microbiology - Last 24 Hours (Table) 08/26/22 21:54 Gram Stain - Final Sputum Sputum Culture - Final Emily albicans 08/26/22 08:30 Blood Culture - Preliminary Blood 08/26/22 08:15 Blood Culture - Preliminary Blood
[2022-08-30] MEDS: IPRATROPIUM-ALBUTEROL 3 ML NEB INHALATION PRN ×2 (00:30→04:09)
[2022-08-30] MEDS: methylPREDNISolone SOD SUCCI 125 MG/2 ML VIAL IV SCH ×2 (04:56→21:25)
[2022-08-30] MEDS: HYDROcodone/APAP 5-325MG 1 EACH TAB PO PRN ×3 (04:56→18:33)
[2022-08-30] MEDS ORDERED: MAGNESIUM HYDROXIDE 2,400 MG/10 ML CUP PO PRN (05:02)
[2022-08-30] MEDS: BUDESONIDE 1 MG/2 ML NEBU INHALATION SCH ×2 (07:25→20:43)
[2022-08-30] MEDS: IPRATROPIUM-ALBUTEROL 3 ML NEB INHALATION SCH ×4 (07:25→20:43)
[2022-08-30] MEDS: FORMOTEROL FUMARATE 20 MCG/2 ML NEBU INHALATION SCH ×2 (07:57→20:43)
[2022-08-30] MEDS ORDERED: DICYCLOMINE 10 MG/ML 2 ML AMP IM STA (08:17)
[2022-08-30] MEDS ORDERED: bisacodyL 10 MG SUPP RECTAL STA (08:18)
[2022-08-30] MEDS: MULTIVITAMINS, THERA 1 EACH TAB PO SCH (09:52)
[2022-08-30] MEDS: AMOXIC-POT CLAV 200-28.5MG/5ML 100 ML BOTTLE PO SCH ×2 (09:52→21:26)
[2022-08-30] MEDS: ENOXAPARIN 40 MG/0.4 ML SYRINGE SQ SCH (09:52)
[2022-08-30] MEDS: NYSTATIN 100,000 UNIT/ML SUSP 500,000 UNIT/5 ML CUP PO SCH ×4 (09:52→21:26)
[2022-08-30] MEDS: guaiFENesin 600 MG TABLET.ER PO SCH ×2 (09:53→21:25)
--- NOTE | 2022-08-30 14:20 | P.PN ---
Subjective Progress Note Date: 08/30/22 I am seeing this patient in new consultation today 08/27/2022 for suspected acu te COPD exacerbation. Patient is a 67-year-old female with past medical history significant for moderate COPD, pulmonary embolism, diverticulitis with previous colectomy, and is a remote ex-smoker. Has seen Dr. Vasquez a while ago in the office, but no recent visits. Patient presented to the emergency room yesterday morning. She has been experiencing symptoms of acute shortness of breath and wheezing, that has been worse over the last 24 hours. She's also has an associated productive cough with yellow sputum. She denies any fevers, chills, chest pain, hemoptysis. She denies any sick contacts. She does report frequent bouts of bronchitis over the last couple months. She has been treated on outpatient basis with azithromycin and steroids earlier this week without much relief. She has been using her 's oxygen, and has been utilizing a combination of Symbicort and albuterol inhalers on an outpatient basis. Patient is currently sitting up in bed, on 4 L nasal cannula, in no acute distress. Chest x-ray on arrival showed no acute cardiopulmonary process with chronic emph ysematous changes. She was negative for COVID-19, RSV, influenza. CBC on arrival shows no leukocytosis and is unremarkable. Covered on an empiric Augmentin. BMP shows sodium 140, potassium 3.3, chloride 104, serum CO2 30, BUN 6, creatinine 0.52, glucose 90. Troponins negative 1. NT proBNP low. Patient is currently maintained on a combination of budesonide inhalation, formoterol inhalation, DuoNeb's, and IV Solu-Medrol. Lungs are minimally bronchospastic on auscultation. She has been afebrile. Vital signs are stable On today's evaluation of 08/27/2022, the patient is still bronchospastic and wheezy. She is getting a little bit anxious and restless on systemic steroids. She was able to give us a sputum sample cultures still pending for now. She is known to have COPD and she was has less for an acute COPD exacerbation. Outpatient therapy for COPD exacerbation with a combination of antibiotics and steroids have failed. The patient's white cell count of 8 with a hemoglobin 14.7 and a platelet count of 261. The sodium level is at 141 with a potassium level of 4.3 with a BUN of 8.7 and a creatinine of 0.6. Covid 19 testing, influenza a and B and RSV were all negative. On today's evaluation of 08/28/2022, patient is shows limited improvement in acute choked exacerbation. She's to bronchospastic and wheezy and short of breath. She gets short of breath with limited amount of activity. She is on oxygen at 4 L/m nasal cannula. She is on IV Solu-Medrol 60 mg every 6 hours. She is also on empiric antibiotic coverage with Augmentin. Noted the chest x- ray showed no acute pulmonary infiltrates. The patient was able to give us a sputum sample that is also still pending for now. She is a bit anxious and this is probably related to her COPD and shortness of breath and steroids affect. The labs from yesterday was noted. No significant leukocytosis. Influenza, Covid 19 and RSV were all negative. The patient's had a pro-calcitonin level of 0.02. 08/29/2022, seeing the patient for a follow-up. Patient is looking slightly better on today's evaluation. Nevertheless, I decided to continue the IV Solu- Medrol the same doses for now. She still having coughing and the patient sputum sample was positive for Emily albicans. She has developed some oropharyngeal candidiasis. No fever. No chills. No pleurisy. No hemoptysis. No chest pain. No other complaints otherwise for now. No recent labs are available. Her pro calcitonin level is low and the chest x-ray is negative for any pneumonia. On 08/30/2022, the patient is essentially the same treatment. Nystatin was added for oropharyngeal candidiasis. No sore throat or any change in voice lucrecia lity. The patient is on Augmentin. The patient is on DuoNeb nebulized treatments. The patient remains on IV Solu-Medrol. Improvement is gradually added slow and we decided to keep the patient for another 24-48 hours on IV steroids. Objective - Vital Signs Vital signs: Vital Signs Temp 98.4 F 08/30/22 07:07 Pulse 85 08/30/22 11:58 Resp 18 08/30/22 08:00 BP 136/66 08/30/22 07:07 Pulse Ox 93 L 08/30/22 07:07 FiO2 50 08/29/22 20:30 Intake & Output 08/29/22 08/30/22 08/30/22 18:59 06:59 18:59 Other: Voiding Method Toilet Toilet Toilet # Voids 4 3 - Exam GENERAL EXAM: Alert, 59-year-old white female, comfortable in no apparent distress. The patient is currently on 3 L of O2 nasal cannula HEAD: Normocephalic and atraumatic EYES: Normal reaction of pupils, equal size. NOSE: Clear with pink turbinates. THROAT: No erythema or exudates. NECK: No masses, no JVD. CHEST: No chest wall deformity. LUNGS: Equal air entry with minimal expiratory wheezes throughout. no crackles, rhonchi or dullness. . No conversational dyspnea or accessory muscle use.. Still bronchospastic and wheezy especially upon forceful expiratory maneuvers. CVS: S1 and S2 normal with no audible murmur, regular rhythm. No extra heart sounds ABDOMEN: No hepatosplenomegaly, active bowel sounds, no guarding or rigidity. SPINE: No scoliosis or deformity SKIN: No rashes CENTRAL NERVOUS SYSTEM: No focal deficits, tone is normal in all 4 extremities. EXTREMITIES: There is no peripheral edema, clubbing, or cyanosis. Peripheral pulses are intact. - Labs CBC & Chem 7: 08/27/22 05:27 08/27/22 05:27 Labs: Microbiology - Last 24 Hours (Table) 08/26/22 08:30 Blood Culture - Preliminary Blood 08/26/22 08:15 Blood Culture - Preliminary Blood 08/26/22 21:54 Gram Stain - Final Sputum Sputum Culture - Final Emily albicans Assessment and Plan Plan: Acute COPD exacerbation. chest x-ray shows no acute cardiopulmonary process. Negative for influenza, RSV, COVID-19. The patient is still having shortness of breath and limited improvement since yesterday while being on bronchodilators and systemic steroids. The patient is also on empiric antibiotic coverage with Augmentin. Clinically improved on today's evaluation Acute hypoxic respiratory failure secondary to above, currently on 4 L nasal cannula History of pulmonary embolism History of diverticulitis with prior colectomy Ex-smoker Oropharyngeal candidiasis Plan: Continue same treatment for now Continue high-dose IV Solu-Medrol 60 mg every 6 hours, may start tapering steroids as of tomorrow Continue bronchodilators in addition to Perforomist and Pulmicort updrafts Continue oral Augmentin and .nystatin for oropharyngeal candidiasis Awaiting sputum Gram stain and culture, cultures are positive for Emily Continue supplement oxygen to maintain an oxygen saturation above 92% Continue empiric antibiotics Check procalcitonin level was low Titrate FiO2 to maintain a saturation above 90% We will continue to follow
[2022-08-30 14:47] LABS: African American GFR (CKD) 103.2 (60.0-200.0); Anion Gap 13.4 mmol/L (10.00-18.00); BUN/Creat Ratio 16.43 Ratio (12.00-20.00); Blood Urea Nitrogen 11.5 mg/dL (9.0-27.0); Calcium 10.1 mg/dL (8.7-10.3); Carbon Dioxide 26.6 mmol/L (20.0-27.5); Potassium 5.1 mmol/L (3.5-5.5)
[2022-08-30 14:53] LABS: HCT 49.2 % (34.0-46.0); HGB 16.3 gm/dL (11.4-16.0); MCH 32.9 pg (25.0-35.0); MCHC 33.2 g/dL (31.0-37.0); MCV 99.1 fL (80.0-100.0); Mean Platelet Volume 7.4; Platelet Count 414 k/uL (150-450); RBC 4.97 m/uL (3.80-5.40); RDW 12.5 % (11.5-15.5); WBC 8.4 k/uL (3.8-10.6)
--- NOTE | 2022-08-30 15:49 | P.PN ---
Subjective Progress Note Date: 08/30/22 Hospital course: Patient is a 67-year-old female with a history of COPD not on home oxygen dependent, diverticulosis, and prior pulmonary embolism. She presented to the emergency department on 08/26/22 with a chief complaint of shortness of breath. On arrival to the ER she was tachycardic with a pulse of 104 and hypoxic with an O2 sat of 83% on room air requiring oxygen supplementation. Labs were completed and reviewed. CBC, coags, and CMP were unremarkable with the exception of mild hypokalemia with potassium of 3.3. Lactic acid normal findings at 1.0. Troponin negative at less than 0.012 and pro-BMP is less than 0.012. Influenza A, influenza B, RSV, and Covid PCR were negative. Chest x-ray showing flattening of the diaphragm with increased lucency in the lungs consistent with COPD, negative for acute cardiopulmonary process. showed no acute process. EKG was completed showing normal sinus rhythm at 90 bpm with an incomplete right bundle branch block upon personal review and interpretation. Patient was admitted under our services with consultation to pulmonology. She was continued on supplemental oxygen, steroids, bronchodilators, and antibiotics. Pro-calcitonin was obtained resulting in 0.02. She had slow improvement and this morning remains on 4 L O2 via nasal cannula with SpO2 of 93%. Physical exam: Patient seen and examined at bedside. Patient appears to be doing well this morning. She is on 2 L O2 maintaining oxygen saturations between 93 and 94%. General: non toxic, no distress, appears at stated age Derm: warm, dry Head: atraumatic, normocephalic, symmetric Eyes: EOMI, no lid lag, anicteric sclera Mouth: no lip lesion, mucus membranes moist Cardiovascular: S1S2 reg, no murmur, positive posterior tibial pulse bilateral, Lungs: Good air movement throughout, no wheezes, no rhonchi, no rales , no accessory muscle use Abdominal: soft, nontender to palpation, no guarding, no appreciable organomegaly Ext: no gross muscle atrophy, no edema, no contractures Neuro: CN II-XI grossly intact, no focal neuro deficits Psych: Alert, oriented, appropriate affect Assessment and plan of care: Acute exacerbation of COPD Acute hypoxic respiratory failure Abdominal Spasms on chronic norco Hypokalemia Prior tobacco abuse Hx of Pulmonary embolism -Pulmonary following and discussed plan of care with Dr. Vasquez who is recommending continued plan of care at this time - Solumedrol decreased to 60 mg every 12 hours day #5 of IV steroids - Duoneb q 6 hours, and prn, pulmicort and budesonide - mucinex, flonase, claritin - Augmentin day 5 of 10 - Rx for home nebulizer completed -Imaging: None new -Data Review: Vital signs reviewed and stable. Blood pressure 136/66, heart rate 65, respiratory rate 18, temp 98.4F, and SpO2 of 93% on 2 L O2 via nasal cannula. -Blood cultures-no growth today -Sputum culture- Emily albicans. Refuse Laborer starting patient on oral nystatin. -Home oxygen evaluation completed. Patient was reported to have SpO2 of 94% on 2 L O2 at rest and 92% on 2 L O2 with ambulation. Patient was reportedly 82% on room air at rest and 84% on room air with ambulation. Arrangements have been made for delivery of home oxygen. We will plan for discharge home on home oxygen likely tomorrow, discussed with mobile sales consultant. CODE STATUS: Full code DVT prophylaxis: Lovenox Anticipated discharge date: Likely tomorrow morning Anticipated discharge place: Home Patient was seen independently by Nurse Pracitioner. This document was prepared using [employer] dictation software. Please allow for errors in jr. systems administrator, while rare they do occur. I reviewed the documentation as provided by the JALEN above, who is the original author of this note. I agree with the documented assessment and plan, with the following changes: none Objective - Vital Signs Vital signs: Vital Signs Temp 98.4 F 08/30/22 07:07 Pulse 82 08/30/22 07:54 Resp 18 08/30/22 07:07 BP 136/66 08/30/22 07:07 Pulse Ox 93 L 08/30/22 07:07 FiO2 50 08/29/22 20:30 Intake & Output 08/29/22 08/30/22 08/30/22 18:59 06:59 18:59 Other: Voiding Method Toilet Toilet # Voids 4 3 - Labs CBC & Chem 7: 08/30/22 14:12 08/30/22 05:54 Labs: Microbiology - Last 24 Hours (Table) 08/26/22 08:30 Blood Culture - Preliminary Blood 08/26/22 08:15 Blood Culture - Preliminary Blood 08/26/22 21:54 Gram Stain - Final Sputum Sputum Culture - Final Emily albicans
[2022-08-30] MEDS: LORazepam 0.5 MG TAB PO PRN (21:33)
[2022-08-31] MEDS: BUDESONIDE 1 MG/2 ML NEBU INHALATION SCH ×2 (07:47→20:20)
[2022-08-31] MEDS: IPRATROPIUM-ALBUTEROL 3 ML NEB INHALATION SCH ×4 (07:47→20:20)
[2022-08-31] MEDS: FORMOTEROL FUMARATE 20 MCG/2 ML NEBU INHALATION SCH ×2 (07:47→20:20)
[2022-08-31] MEDS: HYDROcodone/APAP 5-325MG 1 EACH TAB PO PRN ×3 (08:01→20:40)
[2022-08-31] MEDS: guaiFENesin 600 MG TABLET.ER PO SCH ×2 (08:02→20:40)
[2022-08-31] MEDS: MULTIVITAMINS, THERA 1 EACH TAB PO SCH (08:02)
[2022-08-31] MEDS: NYSTATIN 100,000 UNIT/ML SUSP 500,000 UNIT/5 ML CUP PO SCH ×4 (08:02→20:40)
[2022-08-31] MEDS: ENOXAPARIN 40 MG/0.4 ML SYRINGE SQ SCH (08:03)
[2022-08-31] MEDS: AMOXIC-POT CLAV 200-28.5MG/5ML 100 ML BOTTLE PO SCH ×2 (08:03→21:09)
[2022-08-31] MEDS: methylPREDNISolone SOD SUCCI 125 MG/2 ML VIAL IV SCH ×2 (08:03→21:55)
--- NOTE | 2022-08-31 12:30 | P.PN ---
Subjective Progress Note Date: 08/31/22 I am seeing this patient in new consultation today 08/27/2022 for suspected acu te COPD exacerbation. Patient is a 67-year-old female with past medical history significant for moderate COPD, pulmonary embolism, diverticulitis with previous colectomy, and is a remote ex-smoker. Has seen Dr. Vasquez a while ago in the office, but no recent visits. Patient presented to the emergency room yesterday morning. She has been experiencing symptoms of acute shortness of breath and wheezing, that has been worse over the last 24 hours. She's also has an associated productive cough with yellow sputum. She denies any fevers, chills, chest pain, hemoptysis. She denies any sick contacts. She does report frequent bouts of bronchitis over the last couple months. She has been treated on outpatient basis with azithromycin and steroids earlier this week without much relief. She has been using her 's oxygen, and has been utilizing a combination of Symbicort and albuterol inhalers on an outpatient basis. Patient is currently sitting up in bed, on 4 L nasal cannula, in no acute distress. Chest x-ray on arrival showed no acute cardiopulmonary process with chronic emph ysematous changes. She was negative for COVID-19, RSV, influenza. CBC on arrival shows no leukocytosis and is unremarkable. Covered on an empiric Augmentin. BMP shows sodium 140, potassium 3.3, chloride 104, serum CO2 30, BUN 6, creatinine 0.52, glucose 90. Troponins negative 1. NT proBNP low. Patient is currently maintained on a combination of budesonide inhalation, formoterol inhalation, DuoNeb's, and IV Solu-Medrol. Lungs are minimally bronchospastic on auscultation. She has been afebrile. Vital signs are stable On today's evaluation of 08/27/2022, the patient is still bronchospastic and wheezy. She is getting a little bit anxious and restless on systemic steroids. She was able to give us a sputum sample cultures still pending for now. She is known to have COPD and she was has less for an acute COPD exacerbation. Outpatient therapy for COPD exacerbation with a combination of antibiotics and steroids have failed. The patient's white cell count of 8 with a hemoglobin 14.7 and a platelet count of 261. The sodium level is at 141 with a potassium level of 4.3 with a BUN of 8.7 and a creatinine of 0.6. Covid 19 testing, influenza a and B and RSV were all negative. On today's evaluation of 08/28/2022, patient is shows limited improvement in acute choked exacerbation. She's to bronchospastic and wheezy and short of breath. She gets short of breath with limited amount of activity. She is on oxygen at 4 L/m nasal cannula. She is on IV Solu-Medrol 60 mg every 6 hours. She is also on empiric antibiotic coverage with Augmentin. Noted the chest x- ray showed no acute pulmonary infiltrates. The patient was able to give us a sputum sample that is also still pending for now. She is a bit anxious and this is probably related to her COPD and shortness of breath and steroids affect. The labs from yesterday was noted. No significant leukocytosis. Influenza, Covid 19 and RSV were all negative. The patient's had a pro-calcitonin level of 0.02. 08/29/2022, seeing the patient for a follow-up. Patient is looking slightly better on today's evaluation. Nevertheless, I decided to continue the IV Solu- Medrol the same doses for now. She still having coughing and the patient sputum sample was positive for Emily albicans. She has developed some oropharyngeal candidiasis. No fever. No chills. No pleurisy. No hemoptysis. No chest pain. No other complaints otherwise for now. No recent labs are available. Her pro calcitonin level is low and the chest x-ray is negative for any pneumonia. On 08/30/2022, the patient is essentially the same treatment. Nystatin was added for oropharyngeal candidiasis. No sore throat or any change in voice lucrecia lity. The patient is on Augmentin. The patient is on DuoNeb nebulized treatments. The patient remains on IV Solu-Medrol. Improvement is gradually added slow and we decided to keep the patient for another 24-48 hours on IV steroids. On 08/31/2022, the patient is still having repeated and vigorous coughing. She is on Mucinex. She is on IV Solu-Medrol and dose has been tapered to 60 mg every 12 hours. She is on Augmentin and she is on DuoNeb nebulized treatments [id number]. She is on Pulmicort and Perforomist. She is walking back and forth to the bathroom. The overall functionality limited because of her ongoing shortness of breath. No chest pain. No altered mental status. Objective - Vital Signs Vital signs: Vital Signs Temp 98.5 F 08/31/22 06:58 Pulse 88 08/31/22 11:40 Resp 18 08/31/22 06:58 BP 125/83 08/31/22 06:58 Pulse Ox 93 L 08/31/22 07:58 FiO2 50 08/29/22 20:30 Intake & Output 08/30/22 08/31/22 08/31/22 18:59 06:59 18:59 Intake Total 550 Balance 550 Intake: Oral 550 Other: Voiding Method Toilet Toilet # Voids 4 3 # Bowel Movements 1 - Labs CBC & Chem 7: 08/30/22 14:12 08/30/22 05:54 Labs: Abnormal Lab Results - Last 24 Hours (Table) 08/30/22 08/30/22 Range/Units 05:54 14:12 Hgb 16.3 H (11.4-16.0) gm/dL Hct 49.2 H (34.0-46.0) % Glucose 137 H (70-110) mg/dL Microbiology - Last 24 Hours (Table) 08/26/22 08:30 Blood Culture - Preliminary Blood 08/26/22 08:15 Blood Culture - Preliminary Blood Assessment and Plan Plan: Acute COPD exacerbation. chest x-ray shows no acute cardiopulmonary process. Negative for influenza, RSV, COVID-19. The patient is still having shortness of breath and limited improvement since yesterday while being on bronchodilators and systemic steroids. The patient is also on empiric antibiotic coverage with Augmentin. Clinically improved on today's evaluation Acute hypoxic respiratory failure secondary to above, currently on 4 L nasal cannula History of pulmonary embolism History of diverticulitis with prior colectomy Ex-smoker Oropharyngeal candidiasis Plan: Continue same treatment for now Continue high-dose IV Solu-Medrol 60 mg every 12 hours May switch this patient a prednisone burst taper as of tomorrow May need home O2 and oxygen supplementation will be needed Continue bronchodilators in addition to Perforomist and Pulmicort updrafts Continue oral Augmentin and .nystatin for oropharyngeal candidiasis Awaiting sputum Gram stain and culture, cultures are positive for Emily Continue supplement oxygen to maintain an oxygen saturation above 92% Continue empiric antibiotics Check procalcitonin level was low Titrate FiO2 to maintain a saturation above 90% We will continue to follow
--- NOTE | 2022-08-31 15:20 | P.PN ---
Subjective Progress Note Date: 08/31/22 Hospital course: Patient is a 67-year-old female with a history of COPD not on home oxygen dependent, diverticulosis, and prior pulmonary embolism. She presented to the emergency department on 08/26/22 with a chief complaint of shortness of breath. On arrival to the ER she was tachycardic with a pulse of 104 and hypoxic with an O2 sat of 83% on room air requiring oxygen supplementation. Labs were completed and reviewed. CBC, coags, and CMP were unremarkable with the exception of mild hypokalemia with potassium of 3.3. Lactic acid normal findings at 1.0. Troponin negative at less than 0.012 and pro-BMP is less than 0.012. Influenza A, influenza B, RSV, and Covid PCR were negative. Chest x-ray showing flattening of the diaphragm with increased lucency in the lungs consistent with COPD, negative for acute cardiopulmonary process. showed no acute process. EKG was completed showing normal sinus rhythm at 90 bpm with an incomplete right bundle branch block upon personal review and interpretation. Patient was admitted under our services with consultation to pulmonology. She was continued on supplemental oxygen, steroids, bronchodilators, and antibiotics. Pro-calcitonin was obtained resulting in 0.02. She had slow improvement and this morning remains on 4 L O2 via nasal cannula with SpO2 of 93%. Physical exam: Patient seen and examined at bedside. Patient appears to be doing well this morning. She remains on 2 L O2 maintaining oxygen saturations between 93 and 94%. Patient reports doing well but she is a little nervous regarding discharge. Qm Nurse recommending an additional night in hospital for monitoring. Arrangements have been made and home oxygen has been delivered. Prescription sent to pharmacy for nystatin, Augmentin, and prednisone. RN calling pharmacy for delivery of prescription and home nebulizer machine so they're available if patient is stable for discharge tomorrow. General: non toxic, no distress, appears at stated age Derm: warm, dry Head: atraumatic, normocephalic, symmetric Eyes: EOMI, no lid lag, anicteric sclera Mouth: no lip lesion, mucus membranes moist Cardiovascular: S1S2 reg, no murmur, positive posterior tibial pulse bilateral, Lungs: Good air movement throughout, no wheezes, no rhonchi, no rales , no accessory muscle use Abdominal: soft, nontender to palpation, no guarding, no appreciable organom egaly Ext: no gross muscle atrophy, no edema, no contractures Neuro: CN II-XI grossly intact, no focal neuro deficits Psych: Alert, oriented, appropriate affect Assessment and plan of care: Acute exacerbation of COPD Acute hypoxic respiratory failure Abdominal Spasms on chronic norco Hypokalemia Prior tobacco abuse Hx of Pulmonary embolism -Pulmonary following and discussed plan of care with Dr. Vasquez who is recommending continued plan of care at this time -Solumedrol decreased to 60 mg every 12 hours day #5 of IV steroids -Duoneb q 6 hours, and prn, pulmicort and budesonide -Continue mucinex, flonase, claritin -Augmentin day 5 of 10 -Rx for home nebulizer completed -Imaging: None new -Data Review: Vital signs reviewed and stable. Blood pressure 136/66, heart rate 65, respiratory rate 18, temp 98.4F, and SpO2 of 93% on 2 L O2 via nasal cannula. -Blood cultures-no growth to date. -Sputum culture- Emily albicans. Qm Nurse started patient on oral nystatin. -Home oxygen evaluation completed. Patient was reported to have SpO2 of 94% on 2 L O2 at rest and 92% on 2 L O2 with ambulation. Patient was reportedly 82% on room air at rest and 84% on room air with ambulation. Home oxygen has been delivered for when patient is discharged. CODE STATUS: Full code DVT prophylaxis: Lovenox Anticipated discharge date: Likely tomorrow morning Anticipated discharge place: Home Patient was seen independently by Nurse Pracitioner. This document was prepared using [employer] dictation software. Please allow for errors in carton repairer, while rare they do occur. I reviewed the documentation as provided by the JALEN above, who is the original author of this note. I agree with the documented assessment and plan, with the following changes: none Objective - Vital Signs Vital signs: Vital Signs Temp 99.0 F 08/31/22 14:42 Pulse 99 08/31/22 14:42 Resp 18 08/31/22 14:42 BP 131/76 08/31/22 14:42 Pulse Ox 99 08/31/22 14:42 FiO2 50 08/29/22 20:30 Intake & Output 08/30/22 08/31/22 08/31/22 18:59 06:59 18:59 Intake Total 550 Balance 550 Intake: Oral 550 Other: Voiding Method Toilet Toilet # Voids 4 3 # Bowel Movements 1 - Labs CBC & Chem 7: 08/30/22 14:12 08/30/22 05:54 Labs: Microbiology - Last 24 Hours (Table) 08/26/22 08:30 Blood Culture - Preliminary Blood 08/26/22 08:15 Blood Culture - Preliminary Blood
[2022-09-01] MEDS: HYDROcodone/APAP 5-325MG 1 EACH TAB PO PRN ×2 (05:32→13:10)
[2022-09-01 07:30] VITALS: BP 125/71; RESP 18; TEMP 98.4
[2022-09-01] MEDS: IPRATROPIUM-ALBUTEROL 3 ML NEB INHALATION SCH ×2 (08:07→11:41)
[2022-09-01] MEDS: FORMOTEROL FUMARATE 20 MCG/2 ML NEBU INHALATION SCH (08:07)
[2022-09-01] MEDS: BUDESONIDE 1 MG/2 ML NEBU INHALATION SCH (08:07)
[2022-09-01] MEDS: methylPREDNISolone SOD SUCCI 125 MG/2 ML VIAL IV SCH (08:52)
[2022-09-01] MEDS: ENOXAPARIN 40 MG/0.4 ML SYRINGE SQ SCH (08:52)
[2022-09-01] MEDS: guaiFENesin 600 MG TABLET.ER PO SCH (08:52)
[2022-09-01] MEDS: MULTIVITAMINS, THERA 1 EACH TAB PO SCH (08:52)
[2022-09-01] MEDS: NYSTATIN 100,000 UNIT/ML SUSP 500,000 UNIT/5 ML CUP PO SCH ×2 (08:52→13:06)
[2022-09-01 11:52] VITALS: PULSE 86
--- NOTE | 2022-09-01 12:22 | P.PN ---
Subjective Progress Note Date: 09/01/22 I am seeing this patient in new consultation today 08/27/2022 for suspected acu te COPD exacerbation. Patient is a 67-year-old female with past medical history significant for moderate COPD, pulmonary embolism, diverticulitis with previous colectomy, and is a remote ex-smoker. Has seen Dr. Vasquez a while ago in the office, but no recent visits. Patient presented to the emergency room yesterday morning. She has been experiencing symptoms of acute shortness of breath and wheezing, that has been worse over the last 24 hours. She's also has an associated productive cough with yellow sputum. She denies any fevers, chills, chest pain, hemoptysis. She denies any sick contacts. She does report frequent bouts of bronchitis over the last couple months. She has been treated on outpatient basis with azithromycin and steroids earlier this week without much relief. She has been using her 's oxygen, and has been utilizing a combination of Symbicort and albuterol inhalers on an outpatient basis. Patient is currently sitting up in bed, on 4 L nasal cannula, in no acute distress. Chest x-ray on arrival showed no acute cardiopulmonary process with chronic emph ysematous changes. She was negative for COVID-19, RSV, influenza. CBC on arrival shows no leukocytosis and is unremarkable. Covered on an empiric Augmentin. BMP shows sodium 140, potassium 3.3, chloride 104, serum CO2 30, BUN 6, creatinine 0.52, glucose 90. Troponins negative 1. NT proBNP low. Patient is currently maintained on a combination of budesonide inhalation, formoterol inhalation, DuoNeb's, and IV Solu-Medrol. Lungs are minimally bronchospastic on auscultation. She has been afebrile. Vital signs are stable On today's evaluation of 08/27/2022, the patient is still bronchospastic and wheezy. She is getting a little bit anxious and restless on systemic steroids. She was able to give us a sputum sample cultures still pending for now. She is known to have COPD and she was has less for an acute COPD exacerbation. Outpatient therapy for COPD exacerbation with a combination of antibiotics and steroids have failed. The patient's white cell count of 8 with a hemoglobin 14.7 and a platelet count of 261. The sodium level is at 141 with a potassium level of 4.3 with a BUN of 8.7 and a creatinine of 0.6. Covid 19 testing, influenza a and B and RSV were all negative. On today's evaluation of 08/28/2022, patient is shows limited improvement in acute choked exacerbation. She's to bronchospastic and wheezy and short of breath. She gets short of breath with limited amount of activity. She is on oxygen at 4 L/m nasal cannula. She is on IV Solu-Medrol 60 mg every 6 hours. She is also on empiric antibiotic coverage with Augmentin. Noted the chest x- ray showed no acute pulmonary infiltrates. The patient was able to give us a sputum sample that is also still pending for now. She is a bit anxious and this is probably related to her COPD and shortness of breath and steroids affect. The labs from yesterday was noted. No significant leukocytosis. Influenza, Covid 19 and RSV were all negative. The patient's had a pro-calcitonin level of 0.02. 08/29/2022, seeing the patient for a follow-up. Patient is looking slightly better on today's evaluation. Nevertheless, I decided to continue the IV Solu- Medrol the same doses for now. She still having coughing and the patient sputum sample was positive for Emily albicans. She has developed some oropharyngeal candidiasis. No fever. No chills. No pleurisy. No hemoptysis. No chest pain. No other complaints otherwise for now. No recent labs are available. Her pro calcitonin level is low and the chest x-ray is negative for any pneumonia. On 08/30/2022, the patient is essentially the same treatment. Nystatin was added for oropharyngeal candidiasis. No sore throat or any change in voice lucrecia lity. The patient is on Augmentin. The patient is on DuoNeb nebulized treatments. The patient remains on IV Solu-Medrol. Improvement is gradually added slow and we decided to keep the patient for another 24-48 hours on IV steroids. On 08/31/2022, the patient is still having repeated and vigorous coughing. She is on Mucinex. She is on IV Solu-Medrol and dose has been tapered to 60 mg every 12 hours. She is on Augmentin and she is on DuoNeb nebulized treatments [id number]. She is on Pulmicort and Perforomist. She is walking back and forth to the bathroom. The overall functionality limited because of her ongoing shortness of breath. No chest pain. No altered mental status. On 09/01/2022, the patient is feeling well no shortness of breath and she seems to be related to go home. Discussed the case with a medical team. No chest pain. No altered mentation. No other new complaints otherwise for now. She has oxygen arranged for her that time of discharge. Objective - Vital Signs Vital signs: Vital Signs Temp 98.4 F 09/01/22 07:30 Pulse 86 09/01/22 11:50 Resp 18 09/01/22 07:30 BP 125/71 09/01/22 07:30 Pulse Ox 93 L 09/01/22 08:28 FiO2 50 08/29/22 20:30 Intake & Output 08/31/22 09/01/22 09/01/22 18:59 06:59 18:59 Other: # Voids 4 2 - Exam GENERAL EXAM: Alert, 59-year-old white female, comfortable in no apparent distr ess. The patient is currently on 3 L of O2 nasal cannula HEAD: Normocephalic and atraumatic EYES: Normal reaction of pupils, equal size. NOSE: Clear with pink turbinates. THROAT: No erythema or exudates. NECK: No masses, no JVD. CHEST: No chest wall deformity. LUNGS: Equal air entry with minimal expiratory wheezes throughout. no crackles, rhonchi or dullness. . No conversational dyspnea or accessory muscle use.. Still bronchospastic and wheezy especially upon forceful expiratory maneuvers. CVS: S1 and S2 normal with no audible murmur, regular rhythm. No extra heart sounds ABDOMEN: No hepatosplenomegaly, active bowel sounds, no guarding or rigidity. SPINE: No scoliosis or deformity SKIN: No rashes CENTRAL NERVOUS SYSTEM: No focal deficits, tone is normal in all 4 extremities. EXTREMITIES: There is no peripheral edema, clubbing, or cyanosis. Peripheral pulses are intact. - Labs CBC & Chem 7: 08/30/22 14:12 08/30/22 05:54 Labs: Microbiology - Last 24 Hours (Table) 08/26/22 08:30 Blood Culture - Final Blood 08/26/22 08:15 Blood Culture - Final Blood Assessment and Plan Plan: Acute COPD exacerbation. chest x-ray shows no acute cardiopulmonary process. Negative for influenza, RSV, COVID-19. The patient is still having shortness of breath and limited improvement since yesterday while being on bronchodilators and systemic steroids. The patient is also on empiric antibiotic coverage with Augmentin. Clinically improved on today's evaluation Acute hypoxic respiratory failure secondary to above, currently on 4 L nasal cannula History of pulmonary embolism History of diverticulitis with prior colectomy Ex-smoker Oropharyngeal candidiasis Plan: Discharge this patient home today on Trelegy Ellipta one inhalation a day, prednisone burst taper starting with 40 mg and DuoNeb nebulized treatments [id number]. Discontinue the Pulmicort Respules. Arrange home O2. I'm going see this patient and she'll be seen in the office for shortness of follow- up.
--- NOTE | 2022-09-01 14:57 | P.DS ---
Providers Date of admission: 08/26/22 10:12 Expected date of discharge: 09/01/22 Attending physician: Anita Zapata DO Consults: 08/26/22 12:11 Consult Physician Routine Consulting Provider: Ronna Vasquez Consult Reason/Comments: COPD Do you want consulting provider notified?: Yes Primary care physician: Nimesh Bob Hospital Course: Discharge Diagnosis: Acute exacerbation of COPD Oropharyngeal Emily Acute hypoxic respiratory failure Abdominal Spasms on chronic norco Hypokalemia Prior tobacco abuse Hx of Pulmonary Embolism Hospital Course: Patient is a 67-year-old female with a history of COPD, diverticulosis, and prior pulmonary embolism who presented to the ER with complaints of shortness of breath. On arrival to the ER she was tachycardic with a pulse of 104 and hypoxic with an O2 sat of 83% on room air. Initial laboratory analysis was remarkable for potassium of 3.3. Influenza A/B/RC/COVID-19 testing was negative. Chest x-ray showed no acute process. The ER she received a dose of IV steroid and 2 [id number] breathing treatments without significant improvement. Arrangements were made for admission. She was continued on steroids, bronchodilators, and antibiotics. Pulmonary was consulted. Her pro- keagan was low. She had slow improvement. She conitnued to have some coughing and wheezing but it was muching improved. Follow-up: Dr. Vasquez in 1 week, Dr. Bob in 1-2 days. She will have home O2 on discharge. New prescriptions consist of Trelegy once daily, predniso ne taper, Protonix will complete prednisone taper, nystatin for oral thrush, and Mucinex. Patient was also given a prescription for DuoNeb and an nebulizer. She will use those 4 times a day for the next 3 days and then as needed. She will stop her Symbicort inhaler. Patient seen and examined at bedside. She continues to have some shortness of breath is much improved than on admission. She continues to have a cough but it is getting better and is more productive. She overall feels better but not back to baseline. A david discussion that'll take several weeks for her to get back to baseline and that is important that she follows up for pulmonary function test in the outpatient setting. Vital signs reviewed and stable. General: nontoxic, no distress, appears at stated age Derm: warm, dry Head: atraumatic, normocephalic, symmetric Eyes: EOMI, no lid lag, anicteric sclera Mouth: no lip lesion, mucus membranes moist Cardiovascular: S1S2 reg, no murmur, positive posterior tibial pulse bilateral, Lungs: Decreased bs bilateral with faint wheeze right base, no rhonchi, no rales , no accessory muscle use Abdominal: soft, nontender to palpation, no guarding, no appreciable organome chani Ext: no gross muscle atrophy, no edema, no contractures Neuro: CN II-XI grossly intact, no focal neuro deficits Psych: Alert, oriented, appropriate affect A total of 45 minutes of time were spent preparing this complex discharge summary. Patient was discharged on 09/01/22. This dictation was prepared using [employer] voice recognition software. Though every attempt is made to correct errors during during dictation some may still exist. Plan - Discharge Summary Discharge Rx Participant: Yes New Discharge Prescriptions: New guaiFENesin [Mucinex] 600 mg PO Q12HR tab Nystatin 100,000 Unit/ml Susp [Mycostatin Oral Susp] 500,000 unit PO QID 9 Days #200 ml Fluticasone/Umeclidin/Vilanter [Trelegy Ellipta 100-62.5-25] 1 inhalation INHALATION DAILY #1 inh predniSONE 0 mg PO DIRECTED #40 tab Pantoprazole Sodium [Protonix] 20 mg PO DAILY #20 tab Continue HYDROcodone/APAP 5-325MG [[place] 5-325] 1 tab PO QID PRN PRN Reason: Pain Albuterol Inhaler [Ventolin Hfa Inhaler] 2 puff INHALATION RT-Q4H PRN PRN Reason: Shortness Of Breath Calcium Carbonate/Vitamin D3 [Caltrate 600 Plus D3 20 Mcg (800 Iu)] 1 tab PO DAILY Cyanocobalamin (Vitamin B-12) [Vitamin B-12] 1,000 mcg PO DAILY Aspirin [Adult Low Dose Aspirin EC] 81 mg PO Q48H LORazepam [Ativan] 0.5 mg PO DAILY PRN PRN Reason: Anxiety Multivitamins, Thera [Multivitamin (formulary)] 1 tab PO DAILY Discontinued Budesonide-Formot 160-4.5 Mcg [Symbicort 160-4.5 Mcg Inhaler] 2 puff INHALATION RT-BID predniSONE See Taper PO DIRECTED Azithromycin [Zithromax] 500 mg PO DAILY Budesonide 1 mg INHALATION RT-BID PRN PRN Reason: Shortness Of Breath Discharge Medication List HYDROcodone/APAP 5-325MG [[place] 5-325] 1 tab PO QID PRN 12/15/16 [History] Aspirin [Adult Low Dose Aspirin EC] 81 mg PO Q48H 07/26/21 [History] Albuterol Inhaler [Ventolin Hfa Inhaler] 2 puff INHALATION RT-Q4H PRN 08/26/22 [History] Calcium Carbonate/Vitamin D3 [Caltrate 600 Plus D3 20 Mcg (800 Iu)] 1 tab PO DAILY 08/26/22 [History] Cyanocobalamin (Vitamin B-12) [Vitamin B-12] 1,000 mcg PO DAILY 08/26/22 [History] LORazepam [Ativan] 0.5 mg PO DAILY PRN 08/26/22 [History] Multivitamins, Thera [Multivitamin (formulary)] 1 tab PO DAILY 08/26/22 [History] Fluticasone/Umeclidin/Vilanter [Trelegy Ellipta 100-62.5-25] 1 inhalation INHALATION DAILY #1 inh 09/01/22 [Rx] Nystatin 100,000 Unit/ml Susp [Mycostatin Oral Susp] 500,000 unit PO QID 9 Days #200 ml 09/01/22 [Rx] Pantoprazole Sodium [Protonix] 20 mg PO DAILY #20 tab 09/01/22 [Rx] guaiFENesin [Mucinex] 600 mg PO Q12HR tab 09/01/22 [Rx] predniSONE 0 mg PO DIRECTED #40 tab 09/01/22 [Rx] Follow up Appointment(s)/Referral(s): [facility] [NON-STAFF] - As Needed (Oxygen) Nimesh Bob DO [Primary Care Provider] - 1-2 days Ronna Vasquez MD [STAFF PHYSICIAN] - 1 Week Patient Instructions/Handouts: COPD (Chronic Obstructive Pulmonary Disease) (DC) Activity/Diet/Wound Care/Special Instructions: Activity: As tolerated. Take breaks as needed. Diet: Regular Diet Special Instructions: Take Duoneb 4 times daily for the next 3 days and then every 2 hours as needed for shortness of breath. You do not need to take the budesonide via nebulizer as you will be taking a Trelegy inhaler. Stop your symbicort inhaler. Take all of your medications as directed and remember to keep all of your doctor's appointments and follow-up as needed. Thank you for allowing us to participate in your care, it was truly a pleasure having you for our patient!!! Nebulizer at [facility]. Cost is $44.74 Discharge Disposition: HOME SELF-CARE
== END 2022-09-01 14:33 | disposition home or self-care (01) | DRG 190 ==
LOC: EC 07:47 → 4SSUR 10:12
PROVIDERS: ADMIT Internal Medicine; ATTEND Internal Medicine
DX: J44.1 Chronic obstructive pulmonary disease with (acute) exacerbation (principal); J96.01 Acute respiratory failure with hypoxia; B37.0 Candidal stomatitis; B37.89 Other sites of candidiasis; I45.10 Unspecified right bundle-branch block; K57.90 Diverticulosis of intestine, part unspecified, without perforation or abscess without bleeding; E87.6 Hypokalemia; Z86.711 Personal history of pulmonary embolism; Z20.822 Contact with and (suspected) exposure to COVID-19; Z79.51 Long term (current) use of inhaled steroids; Z79.82 Long term (current) use of aspirin; Z79.899 Other long term (current) drug therapy; Z90.49 Acquired absence of other specified parts of digestive tract; Z88.5 Allergy status to narcotic agent; Z87.891 Personal history of nicotine dependence
CPT/HCPCS: 36415; 71045; 71046; 80048; 80053; 83605; 83735; 83880; 84100; 84145; 84484; 85025; 85027; 85610; 85730; 87040; 87070; 87205; 87636; 93005; 94640; 94760; 96374; 99285

== ENCOUNTER → 2023-02-04 | Outpatient (CLI) | payer MEDICARE ==
--- NOTE | 2023-02-04 15:08 | XR ---
EXAMINATION TYPE: XR chest 2V DATE OF EXAM: 02/04/2023 3:02 PM COMPARISON: Chest radiographs from 08/27/2022 TECHNIQUE: XR chest 2V Frontal and lateral views of the chest. CLINICAL INDICATION:Female, 67 years old with history of R059 COUGH; FINDINGS: Lungs/Pleura: There is flattening of the diaphragm with increased lucency of the lungs. No evidence o f pneumothorax, pleural effusion or focal consolidation. Pulmonary vascularity: Unremarkable. Heart/mediastinum: Cardiomediastinal silhouette is unremarkable. Atherosclerotic calcifications are seen in the aorta. Musculoskeletal: No acute osseous pathology. IMPRESSION: 1. No acute cardiopulmonary disease process. 2. COPD changes.
== END | disposition home or self-care (01) ==
LOC: RADXRYALE 14:54
PROVIDERS: ATTEND Family Medicine
DX: J44.9 Chronic obstructive pulmonary disease, unspecified (principal)
CPT/HCPCS: 71046

== ENCOUNTER 2023-02-10 11:12 | Emergency (ER) | payer MEDICARE ==
[2023-02-10] MEDS ORDERED: IPRATROPIUM-ALBUTEROL 3 ML NEB INHALATION STA (11:51)
--- NOTE | 2023-02-10 13:11 | XR ---
EXAMINATION TYPE: XR chest 2V DATE OF EXAM: 02/10/2023 COMPARISON: 02/04/2023 HISTORY: Shortness of breath TECHNIQUE: Frontal and lateral views of the chest are obtained. FINDINGS: Scattered senescent parenchymal changes noted. Hyperinflation compatible with COPD. No evidence for infiltrate. No evidence for atelectasis. Heart size is stable. Mediastinal structures are stable and grossly unremarkable. No evidence for hilar prominence. Degenerative changes dorsal spine. IMPRESSION: 1. No evidence for acute pulmonary disease.
--- NOTE | 2023-02-10 13:20 | ED ---
URI HPI - General Chief Complaint: Upper Respiratory Infection Stated Complaint: sob hard time breathing Time Seen by Provider: 02/10/23 11:35 Source: patient, RN notes reviewed Mode of arrival: ambulatory Limitations: no limitations - History of Present Illness Initial Comments: 67-year-old female presents emergency Department with chief complaint of cough congestion. Patient states she's been sick since last Friday. She was diagnosed with influenza A states that she retested on Friday but still was positive. She was placed on Tamiflu and low-dose prednisone. She states that has not helped. She does have COPD. Patient called PCP advised, emergency from today. Denies any chest pain states that she has mild wheezing. Denies any significant nausea vomiting did have diarrhea for Tamiflu. - Related Data Home Medications Medication Instructions Recorded Confirmed HYDROcodone/APAP 5-325MG [[place] 1 tab PO QID PRN 12/15/16 02/04/23 5-325] Albuterol Inhaler [Ventolin Hfa 2 puff INHALATION RT-Q4H PRN 08/26/22 02/04/23 Inhaler] Calcium Carbonate/Vitamin D3 1 tab PO DAILY 08/26/22 02/04/23 [Caltrate 600 Plus D3 20 Mcg (800 Iu)] LORazepam [Ativan] 0.5 mg PO DAILY PRN 08/26/22 02/04/23 Multivitamins, Thera [Multivitamin 1 tab PO DAILY 08/26/22 02/04/23 (formulary)] Budesonide-Formot 160-4.5 Mcg 2 puff INHALATION BID 02/04/23 [Symbicort 160-4.5 Mcg Inhaler] Famotidine [Pepcid] 20 mg PO BID 02/04/23 Previous Rx's Medication Instructions Recorded Ipratropium-Albuterol Nebulize 3 ml INHALATION QID #25 each 02/10/23 [Duoneb 0.5 mg-3 mg/3 ml Soln] predniSONE 50 mg PO DAILY #5 tab 02/10/23 Allergies Allergy/AdvReac Type Severity Reaction Status Date / Time hydromorphone [From Dilaudid] AdvReac Hallucinati Verified 02/10/23 11:25 ons Review of Systems ROS Statement: Those systems with pertinent positive or pertinent negative responses have been documented in the HPI. ROS Other: All systems not noted in ROS Statement are negative. Past Medical History Past Medical History: COPD, Pulmonary Embolus (PE) Additional Past Medical History / Comment(s): diverticulosis,diverticulitis,PE mukul lungs, STOMACH SPASMS, History of Any Multi-Drug Resistant Organisms: None Reported Past Surgical History: Bowel Resection Additional Past Surgical History / Comment(s): bowel resection x3 r/t ruptured diverticuli,Wood procedure. COLONOSCOPY, Past Anesthesia/Blood Transfusion Reactions: No Reported Reaction Past Psychological History: No Psychological Hx Reported Smoking Status: Former smoker Past Alcohol Use History: None Reported Past Drug Use History: None Reported - Past Family History Father Additional Family Medical History / Comment(s): alcoholism Mother Family Medical History: Cancer Additional Family Medical History / Comment(s): lung General Exam Limitations: no limitations General appearance: alert, in no apparent distress Head exam: Present: atraumatic, normocephalic, normal inspection Eye exam: Present: normal appearance, PERRL, EOMI. Absent: scleral icterus, conjunctival injection, periorbital swelling ENT exam: Present: normal exam, normal oropharynx, mucous membranes moist Neck exam: Present: normal inspection, full ROM. Absent: tenderness, meningismus, lymphadenopathy Respiratory exam: Present: wheezes (Bilateral throughout). Absent: normal lung sounds bilaterally, respiratory distress, rales, rhonchi, stridor Cardiovascular Exam: Present: regular rate, normal rhythm, normal heart sounds. Absent: systolic murmur, diastolic murmur, rubs, gallop, clicks GI/Abdominal exam: Present: soft, normal bowel sounds. Absent: distended, tenderness, guarding, rebound, rigid Back exam: Absent: CVA tenderness (R), CVA tenderness (L) Course Vital Signs 02/10/23 02/10/23 02/10/23 11:22 11:36 12:15 Temperature 98.6 F Pulse Rate 82 80 Respiratory 20 20 Rate Blood Pressure 137/77 O2 Sat by Pulse 99 Oximetry 02/10/23 02/10/23 12:29 13:20 Temperature 98.2 F Pulse Rate 84 81 Respiratory 20 Rate Blood Pressure 126/66 O2 Sat by Pulse 92 L Oximetry Medical Decision Making - Medical Decision Making Was pt. sent in by a medical professional or institution (, PA, [employer] HEAD INSPECTOR, urgent care, hospital, or usp...) When possible be specific @ -[PCP Did you speak to anyone other than the patient for history (EMS, parent, family, police, friend...)? What history was obtained from this source @ -No Did you review nursing and triage notes (agree or disagree)? Why? @ -I reviewed and agree with nursing and triage notes Were old charts reviewed (outside hosp., previous admission, EMS record, old EKG, old radiological studies, urgent care reports/EKG's, usp records)? Report findings @ -[Review prior charting Differential Diagnosis (chest pain, altered mental status, abdominal pain women, abdominal pain men, vaginal bleeding, weakness, fever, dyspnea, syncope, headache, dizziness, GI bleed, back pain, seizure, CVA, palpatations, mental health, musculoskeletal)? @ -Differential Dyspnea: Coronary syndrome, arrhythmia, tamponade, asthma, COPD, pulmonary embolism, pneumonia, pneumothorax, pulmonary effusion, anaphylaxis, diabetic ketoacidosis, flailed chest, pulmonary contusion, diaphragmatic rupture, anemia, neuromuscular, this is not meant to be an all-inclusive list. EKG interpreted by me (3pts min.). @ -None X-rays interpreted by me (1pt min.). @ -Chest x-ray shows no acute cardio pulmonary process CT interpreted by me (1pt min.). @ -None done U/S interpreted by me (1pt. min.). @ -None done What testing was considered but not performed or refused? (CT, X-rays, U/S, labs)? Why? @ -None What meds were considered but not given or refused? Why? @ -None Did you discuss the management of the patient with other professionals (professionals i.e. , PA, [employer] HEAD INSPECTOR, lab, RT, psych nurse, social professionals, funeral home general manager, teacher, campus security officer, case management director)? Give summary @ -No Was smoking cessation discussed for >3mins.? @ -No Was critical care preformed (if so, how long)? @ -No Were there social determinants of health that impacted care today? How? (Homelessness, low income, unemployed, alcoholism, drug addiction, transportation, low edu. Level, literacy, decrease access to med. care, usp, rehab)? @ -No Was there de-escalation of care discussed even if they declined (Discuss DNR or withdrawal of care, Hospice)? DNR status @ -No What co-morbidities impacted this encounter? (DM, HTN, Smoking, COPD, CAD, Cancer, CVA, ARF, Chemo, Hep., AIDS, mental health diagnosis, sleep apnea, morbid obesity)? @ -COPD Was patient admitted / discharged? Hospital course, mention meds given and route, prescriptions, significant lab abnormalities, going to OR and other pertinent info. @ -Discharge patient greatly improved after DuoNeb treatment. Patient prescribed treatments for at home. Patient was given prednisone. Patient was given site Medrol in the emergency department. Undiagnosed new problem with uncertain prognosis? @ -No Drug Therapy requiring intensive monitoring for toxicity (Heparin, Nitro, Insulin, Cardizem)? @ -No Were any procedures done? @ -No Diagnosis/symptom? @ -Influenza, COPD exacerbation Acute, or Chronic, or Acute on Chronic? @ -Acute Uncomplicated (without systemic symptoms) or Complicated (systemic symptoms)? @ -. Uncomplicated Side effects of treatment? @ -No Exacerbation, Progression, or Severe Exacerbation? @ -No Poses a threat to life or bodily function? How? (Chest pain, [place], [place], pneumonia, PE, COPD, DKA, ARF, appy, cholecystitis, CVA, Diverticulitis, Homicidal, Suicidal, threat to staff... and all critical care pts) @ -[Yesterday low risk for a respiratory arrest Disposition Clinical Impression: COPD exacerbation, Influenza A Disposition: HOME SELF-CARE Condition: Stable Additional Instructions: Please return to the Emergency Department if symptoms worsen or any other concerns. Prescriptions: Ipratropium-Albuterol Nebulize [Duoneb 0.5 mg-3 mg/3 ml Soln] 3 ml INHALATION QID #25 each predniSONE 50 mg PO DAILY #5 tab Is patient prescribed a controlled substance at d/c from ED?: No Referrals: Nimesh Bob DO [Primary Care Provider] - 1-2 days Time of Disposition: 13:38
[2023-02-10] MEDS ORDERED: methylPREDNISolone SOD SUCCI 125 MG/2 ML VIAL IM ONE (13:36)
[2023-02-10 13:58] VITALS: TEMP 98.2
[2023-02-10 14:49] VITALS: BP 126/77; PULSE 86; RESP 18
== END 2023-02-10 14:26 | disposition home or self-care (01) ==
LOC: EC 11:12
DX: J44.1 Chronic obstructive pulmonary disease with (acute) exacerbation (principal); J10.1 Influenza due to other identified influenza virus with other respiratory manifestations; Z87.891 Personal history of nicotine dependence; Z88.5 Allergy status to narcotic agent; Z79.899 Other long term (current) drug therapy
CPT/HCPCS: 94640; 71046; 99285; 96372; J2930

== ENCOUNTER 2023-04-16 08:48 | Day surgery (SDC) | payer MEDICARE ==
[2023-04-08 16:17] VITALS: BMI 18.8
[2023-04-16] MEDS: LACTATED RINGERS 1,000 ML IV SCH ×2 (09:31→10:00)
[2023-04-16 09:38] VITALS: RESP 16; TEMP 98.2
[2023-04-16] MEDS ORDERED: PROPOFOL 10 MG/ML 20 ML VIAL IV ONE (10:01)
--- NOTE | 2023-04-16 10:20 | P.PCN ---
Date of Procedure: 04/16/23 Procedure(s) Performed: BRIEF HISTORY: Patient is a 68-year-old, pleasant, white female scheduled for an upper endoscopy as a part of evaluation of severe GERD and chronic hoarseness for the last several months duration. Hasn't been on Protonix and milligrams daily with some relief in her symptoms.. PROCEDURE PERFORMED: Esophagogastroduodenoscopy with biopsy. PREOPERATIVE DIAGNOSIS: GERD/chronic hoarseness. IV sedation per anesthesia. PROCEDURE: After informed consent was obtained, the patient was brought into the endoscopy unit. IV sedation was administered by Anesthesia under continuous monitoring. Initially the Olympus GIF-140 video endoscope was inserted into the mouth. Esophagus intubated without any difficulty. It was gradually advanced into the stomach and duodenum and carefully examined. The bulb and the second part of the duodenum appeared normal. The scope at this time was withdrawn to the stomach, adequately insufflated with air, and upon careful examination, mucosa of the antrum mild gastritis and biopsies were done from this area. Mucosa of the, body, cardia and the fundus appeared normal. The scope was then withdrawn into the esophagus. Small hiatal hernia noted. There was a distal esophageal Schatzki's ring identified. The GE junction was located at 39 cm from the incisors. The esophagus appeared normal. There were no erosions or ulcerations seen . Biopsies were done from the distal esophagus and the patient tolerated the procedure well. IMPRESSION: 1. Small hiatal hernia and distal esophageal Schatzki's ring. 2. Mild antral gastritis. 4. No evidence of esophagitis or Ahn's esophagus RECOMMENDATIONS: The findings of this examination were discussed with the patient as well as her family. She was advised to follow with the biopsy results. Recommend increasing Protonix to 40 mg daily to be taken half hour before dinner time and follow antireflux measures.
[2023-04-16 10:49] VITALS: BP 121/76; PULSE 75
== END 2023-04-16 10:57 | disposition home or self-care (01) ==
LOC: ORWHC2ENDO 08:48
PROVIDERS: ATTEND Internal Medicine Gastroenterology
DX: K29.50 Unspecified chronic gastritis without bleeding (principal); K21.00 Gastro-esophageal reflux disease with esophagitis, without bleeding; K22.2 Esophageal obstruction; K44.9 Diaphragmatic hernia without obstruction or gangrene; K31.9 Disease of stomach and duodenum, unspecified; J44.9 Chronic obstructive pulmonary disease, unspecified; Z86.711 Personal history of pulmonary embolism; Z79.899 Other long term (current) drug therapy; Z88.8 Allergy status to other drugs, medicaments and biological substances; Z79.51 Long term (current) use of inhaled steroids
CPT/HCPCS: 43239; J2704; 88305

== ENCOUNTER → 2023-04-21 | Outpatient (CLI) | payer MEDICARE ==
--- NOTE | 2023-04-21 18:58 | US ---
EXAMINATION TYPE: US renals and bladder DATE OF EXAM: 04/21/2023 COMPARISON: NONE CLINICAL INDICATION: Female, 68 years old with history of N20.0 CALCULUS OF KIDNEY N30.01 ACUTE CYSTI TIS; Cystitis, calculus, hematuria. Hx left kidney stone. EXAM MEASUREMENTS: Right Kidney: 10.2 x 5.3 x 3.9 cm Left Kidney: 9.3 x 3.8 x 5.0 cm Right Kidney: No hydronephrosis or masses seen Left Kidney: *6 mm echogenic focus at the upper pole. No hydronephrosis. Bladder: Limited by partial distention. Some internal echoes/debris is noted. Bilateral Jets seen: Right jet seen only during exam. IMPRESSION: 1. No hydronephrosis. 2. A 6 mm nonobstructive left renal calculus. 3. Bladder assessment limited due to partial distention. There seems to be some debris in the bladder as well. Correlate with urinalysis to exclude hemorrhagic or infectious debris.
== END | disposition home or self-care (01) ==
LOC: RADUSWWP 08:00
PROVIDERS: ATTEND Family Medicine
DX: N20.0 Calculus of kidney (principal); N32.89 Other specified disorders of bladder; N30.01 Acute cystitis with hematuria
CPT/HCPCS: 76770

== ENCOUNTER → 2023-05-05 | Outpatient (CLI) | payer MEDICARE ==
--- NOTE | 2023-05-06 12:21 | BD ---
EXAMINATION TYPE: Axial Bone Density DATE OF EXAM: 05/05/2023 CLINICAL HISTORY: 68 years old Female. ICD-10 CODE: M85.80 OT DISRD OF BONE DENSITY Height: 62.25" Weight: 107.2lbs FRAX RISK QUESTIONS: Alcohol (3 or more units per day): No Family History (Parent hip fracture): No Glucocorticoids (More than 3mos): No (Ex: prednisone, prednisolone, methylprednisolone, dexamethasone, and hydrocortisone). History of Fracture in Adulthood: Yes, finger Secondary Osteoporosis: 1. Type 1 Diabetes: No 2. Hyperthyroidism: No 3. Menopause before 45: No 4. Malnutrition: No 5. Chronic liver disease: No Rheumatoid Arthritis: No Current Tobacco Use: No RISK FACTORS HISTORY OF: Hip Fracture (Right/Left): No Spine Fracture: No History of Wrist Fracture: No Surgery to Spine/Hip(right/left)/Wrist (right/left): No MEDICATIONS: Thyroid Medications: No Osteoporosis Medications: No EXAM MEASUREMENTS: Bone mineral densitometry was performed using the sciencebite System. Bone mineral density as measured about the Lumbar spine is: ----- L1-L4(G/cm2): 0.982 T Score Values are as follows: ----- L1: -2.3 ----- L2: -1.8 ----- L3: -1.6 ----- L4: -1.3 ----- L1-L4: -1.7 Z Score Values are as follows: ----- L1: -0.1 ----- L2: 0.4 ----- L3: 0.6 ----- L4: 0.9 ----- L1-L4: 0.5 Bone mineral density has: decreased -6.7% since study of: 11/10/2018 Bone mineral density about the R hip (g/cm2): 0.683 Bone mineral density about the L hip (g/cm2): 0.709 T Score values are as follows: -----R Neck: -2.9 -----L Neck: -2.6 -----R Total: -2.6 -----L Total: -2.4 Z Score values are as follows: -----R Neck: -0.9 -----L Neck: -0.6 -----R Total: -0.8 -----L Total: -0.6 Bone mineral density has: decreased -12.7% since study of: 11/10/2018 FRAX%s: The graph provided illustrates a 15.5% chance for a major osteoporotic fx and a 5.1% chance f or the hips probability for fx in 10 years time. IMPRESSION: Osteoporosis (T Score less than -2.5). There is increased fracture risk and therapy is usually indicated based on age. Re-Screen 1-2 years. NOTE: T-SCORE=SD OF THE YOUNG ADULT MEAN.
--- NOTE | 2023-05-07 08:28 | MM ---
Reason for Exam: Screening (asymptomatic). Last mammogram was performed 1 year(s) and 4 month(s) ago. Patient History: Menarche at age 11. First Full-Term at age 15. Postmenopausal. Patient used Hormonal Contraceptives for 10 years. Maternal aunt had breast cancer, age 91. Risk Values: Aditi 5 year model risk: 1.2%. NCI Lifetime model risk: 3.9%. Prior Study Comparison: 11/16/2019 Bilateral Screening Mammogram, [facility]. 12/14/2020 Bilateral Screening Mammogram, [facility]. 01/07/2022 Bilateral MG screening mammo w CAD, [facility]. Tissue Density: The breast tissue is heterogeneously dense. This may lower the sensitivity of mammography. Findings: Analyzed By CAD. There is no suspicious group of microcalcifications or new suspicious mass. Benign-appearing calcifications right breast. Overall Assessment: Benign, BI-RAD 2 Management: Screening Mammogram of both breasts in [address] [facility] will attempt to contact patient to return for supplemental views and ultrasound if indicated. Patient should continue monthly self-breast exams. A clinical breast exam by your physician is recommended on an annual basis. This exam should not preclude additional follow-up of suspicious palpable abnormalities. Note on Aditi scores and lifetime risk: 1. A Aditi score greater than 3% is considered moderate risk. If this is the case, consider specialist referral to assess eligibility for a risk reducing agent. 2. If overall lifetime risk for the development of breast cancer is 20% or higher, the patient may qualify for future screening with alternating mammogram and breast MRI. Electronically signed and approved by: Geovany Quiros DO
== END | disposition home or self-care (01) ==
LOC: RADBDWWP 15:12
PROVIDERS: ATTEND Family Medicine
DX: Z12.31 Encounter for screening mammogram for malignant neoplasm of breast (principal); Z13.820 Encounter for screening for osteoporosis; M81.0 Age-related osteoporosis without current pathological fracture; M85.88 Other specified disorders of bone density and structure, other site
CPT/HCPCS: 77063; 77067; 77080

== ENCOUNTER → 2023-10-07 | Outpatient (CLI) | payer MEDICARE ==
--- NOTE | 2023-10-08 22:00 | XR ---
EXAMINATION TYPE: XR abdomen 1V DATE OF EXAM: 10/07/2023 COMPARISON: 01/05/2022 HISTORY: Abdomen pain right lower quadrant pain TECHNIQUE: AP abdomen upright view FINDINGS: Postsurgical changes are within the left hemipelvis from prior bowel surgery. Psoas margins appear normal. Nonspecific bowel gas is within the pelvis. No organomegaly is evident. There is a st able calcific density overlying the mid left kidney. No free air is identified. No differential air-fluid levels are. Hepatomegaly may be present. IMPRESSION: 1. Nonspecific bowel gas pattern. 2. Hepatomegaly. 3. Suspected stable 0.5 cm left renal calcification
== END | disposition home or self-care (01) ==
LOC: RADXRYALE 11:55
PROVIDERS: ATTEND Family Medicine
DX: R16.0 Hepatomegaly, not elsewhere classified (principal)
CPT/HCPCS: 74018

== ENCOUNTER → 2023-10-13 | Outpatient (CLI) | payer MEDICARE ==
--- NOTE | 2023-10-13 12:02 | CT ---
EXAMINATION TYPE: CT abdomen pelvis wo con CT DLP: 469 mGycm, Automated exposure control for dose reduction was used. DATE OF EXAM: 10/13/2023 11:52 AM COMPARISON: Renal ultrasound 04/21/2023, abdominal radiograph 10/07/2023, CT abdomen and pelvis 2 CLINICAL INDICATION:Female, 68 years old with history of R10.817 GENERALIZED ABDOMINAL TENDERNESS; c/ o abdominal pressure TECHNIQUE: Standard CT of the abdomen and pelvis following the administration of oral contrast. Cor onal and sagittal reformats were performed. FINDINGS: LOWER CHEST: Bibasilar linear scarring and/or atelectasis. Centrilobular emphysematous changes. ABDOMEN LIVER: Unremarkable noncontrast appearance. Vivian's lobe variant. GALLBLADDER AND BILE DUCTS: Unremarkable noncontrast appearance. PANCREAS: Unremarkable noncontrast appearance. SPLEEN: Unremarkable noncontrast appearance. ADRENAL GLANDS: Unremarkable noncontrast appearance.. KIDNEYS AND URETERS: No evidence of hydronephrosis. Bilateral extrarenal pelvises. Nonobstructive lef t renal 6 mm calculus. PELVIS BLADDER: Incompletely distended but grossly unremarkable. REPRODUCTIVE: Unremarkable noncontrast appearance. ABDOMEN & PELVIS STOMACH AND BOWEL: Stomach and duodenum are unremarkable. Enteric contrast reaches the mid small chad l. Postsurgical changes with anastomosis of the rectum. Moderate colonic stool burden. No focal bowel wall thickening or surrounding inflammatory changes. No evidence of bowel obstruction. PERITONEUM: No evidence of pneumoperitoneum or free fluid. VASCULATURE: Moderate atherosclerotic calcifications are present throughout the abdominal aorta and i ts branches. No evidence of aortic aneurysm. MUSCULOSKELETAL: No acute osseous abnormalities. No aggressive osseous lesion. Degenerative disc dise ase L5-S1. LYMPH NODES: No gross evidence for lymphadenopathy. SOFT TISSUE/ABDOMINAL WALL: Dystrophic calcifications within the right gluteal soft tissues. IMPRESSION: 1. No acute process within the limitations of a noncontrast exam. 2. Nonobstructive left renal calculus redemonstrated. 3. Moderate colonic stool burden.
== END | disposition home or self-care (01) ==
LOC: RADCTMAIN 10:01
PROVIDERS: ATTEND Family Medicine
DX: G89.29 Other chronic pain (principal); N20.2 Calculus of kidney with calculus of ureter; K21.9 Gastro-esophageal reflux disease without esophagitis
CPT/HCPCS: 74176

== ENCOUNTER 2024-04-30 13:50 | Emergency (ER) | payer MEDICARE ==
--- NOTE | 2024-04-30 15:26 | ED ---
General Adult HPI - General Chief complaint: Arrhythmia/Palpitations Stated complaint: Heart palp. Source: patient, RN notes reviewed Mode of arrival: ambulatory Limitations: no limitations - History of Present Illness Initial comments: Patient is a 69-year-old female present to the emergency department with concerns for palpitations. Patient has been experiencing these over the past 2 weeks. Symptoms are intermittent. Symptoms usually only last for a couple of seconds and occur sometimes a few times an hour. Patient does have chronic dyspnea associate with COPD, unchanged. No new dyspnea. No chest pain. No history of similar symptoms previously. Patient is set up for Holter monitor however not until later in May. - Related Data Home Medications Medication Instructions Recorded Confirmed HYDROcodone/APAP 5-325MG [[place]ier 1 tab PO QID PRN 12/15/16 04/16/23 5-325] Albuterol Inhaler [Ventolin Hfa 2 puff INHALATION RT-Q4H PRN 08/26/22 04/16/23 Inhaler] LORazepam [Ativan] 0.5 mg PO HS PRN 08/26/22 04/16/23 Budesonide/Formoterol Fumarate 2 puff INHALATION BID 04/08/23 04/16/23 [Breyna 160-4.5 Mcg Inhaler] Allergies Allergy/AdvReac Type Severity Reaction Status Date / Time hydromorphone [From Dilaudid] AdvReac Hallucinati Verified 04/30/24 17:43 ons Review of Systems ROS Statement: Those systems with pertinent positive or pertinent negative responses have been documented in the HPI. ROS Other: All systems not noted in ROS Statement are negative. Constitutional: Denies: fever Eyes: Denies: eye pain ENT: Denies: ear pain Respiratory: Reports: as per HPI Cardiovascular: Reports: palpitations. Denies: chest pain Endocrine: Denies: fatigue Gastrointestinal: Denies: abdominal pain Musculoskeletal: Denies: back pain Past Medical History Past Medical History: COPD, Pulmonary Embolus (PE) Additional Past Medical History / Comment(s): diverticulosis,diverticulitis,PE mukul lungs, STOMACH SPASMS, History of Any Multi-Drug Resistant Organisms: None Reported Past Surgical History: Bowel Resection Additional Past Surgical History / Comment(s): bowel resection x3 r/t ruptured diverticuli,Wood procedure. COLONOSCOPY, Past Anesthesia/Blood Transfusion Reactions: No Reported Reaction Past Psychological History: No Psychological Hx Reported Smoking Status: Former smoker Past Alcohol Use History: None Reported Past Drug Use History: None Reported - Past Family History Father Additional Family Medical History / Comment(s): Alcoholism. Mother Family Medical History: Cancer Additional Family Medical History / Comment(s): Lung cancer. General Exam Limitations: no limitations General appearance: alert, in no apparent distress Head exam: Present: normocephalic Eye exam: Present: normal appearance Neck exam: Present: normal inspection Respiratory exam: Present: normal lung sounds bilaterally Cardiovascular Exam: Present: regular rate, normal rhythm, normal heart sounds Expanded Peripheral pulses: 2+: Radial (R), Radial (L), Posterior Tibialis (R), Posterior Tibialis (L) GI/Abdominal exam: Present: soft. Absent: tenderness, pulsatile mass Extremities exam: Present: normal inspection. 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 sent in by a medical professional or institution (, PA, [facility], urgent care, hospital, or skilled nursing...) When possible be specific @ -No Did you speak to anyone other than the patient for history (EMS, parent, family, police, friend...)? What history was obtained from this source @ -No Did you review nursing and triage notes (agree or disagree)? Why? @ -I reviewed and agree with nursing and triage notes Were old charts reviewed (outside hosp., previous admission, EMS record, old EKG, old radiological studies, urgent care reports/EKG's, skilled nursing records)? Report findings @ -No old charts were reviewed Differential Diagnosis (chest pain, altered mental status, abdominal pain women, abdominal pain men, vaginal bleeding, weakness, fever, dyspnea, syncope, headache, dizziness, GI bleed, back pain, seizure, CVA, palpatations, mental health, musculoskeletal)? @ -MDM differential palpitation EKG interpreted by me (3pts min.). @ -As above X-rays interpreted by me (1pt min.). @ -None done CT interpreted by me (1pt min.). @ -None done U/S interpreted by me (1pt. min.). @ -None done What testing was considered but not performed or refused? (CT, X-rays, U/S, labs)? Why? @ -None What meds were considered but not given or refused? Why? @ -None Did you discuss the management of the patient with other professionals (professionals i.e. , PA, [facility], lab, RT, psych nurse, licensed clinical social worker, estate tax examiner, teacher, loan servicing officer, caseworker intake)? Give summary @ -No Was smoking cessation discussed for >3mins.? @ -No Was critical care preformed (if so, how long)? @ -No Were there social determinants of health that impacted care today? How? (Homelessness, low income, unemployed, alcoholism, drug addiction, transportation, low edu. Level, literacy, decrease access to med. care, usp, rehab)? @ -No Was there de-escalation of care discussed even if they declined (Discuss DNR or withdrawal of care, Hospice)? DNR status @ -No What co-morbidities impacted this encounter? (DM, HTN, Smoking, COPD, CAD, Cancer, CVA, ARF, Chemo, Hep., AIDS, mental health diagnosis, sleep apnea, morbid obesity)? @ -None Was patient admitted / discharged? Hospital course, mention meds given and route, prescriptions, significant lab abnormalities, going to OR and other pertinent info. @ -Patient presents with palpitations. Patient states she has been under increased stress. Patient reevaluated and resting comfortably in bed. Patient symptom-free at this time. Patient does request discharge home. Patient and family are updated on results and need for follow-up. Undiagnosed new problem with uncertain prognosis? @ -No Drug Therapy requiring intensive monitoring for toxicity (Heparin, Nitro, Insulin, Cardizem)? @ -No Were any procedures done? @ -No Diagnosis/symptom? @ -Palpitations Acute, or Chronic, or Acute on Chronic? @ -Acute Uncomplicated (without systemic symptoms) or Complicated (systemic symptoms)? @ -Default Side effects of treatment? @ -No Exacerbation, Progression, or Severe Exacerbation? @ -No Poses a threat to life or bodily function? How? (Chest pain, [place], [place], pneumonia, PE, COPD, DKA, ARF, appy, cholecystitis, CVA, Diverticulitis, Homicidal, Suicidal, threat to staff... and all critical care pts) @ -Threat to cardiac function through dysrhythmia - Lab Data Result diagrams: 04/30/24 15:43 04/30/24 15:43 Lab Results 04/30/24 04/30/24 04/30/24 Range/Units 15:43 15:43 15:43 WBC 5.0 (3.8-10.6) k/uL RBC 4.61 (3.80-5.40) m/uL Hgb 15.4 (11.4-16.0) gm/dL Hct 46.3 H (34.0-46.0) % MCV 100.5 H (80.0-100.0) fL MCH 33.4 (25.0-35.0) pg MCHC 33.2 (31.0-37.0) g/dL RDW 12.2 (11.5-15.5) % Plt Count 247 (150-450) k/uL MPV 7.1 Neutrophils % 44 % Lymphocytes % 45 % Monocytes % 6 % Eosinophils % 2 % Basophils % 1 % Neutrophils # 2.2 (1.3-7.7) k/uL Lymphocytes # 2.2 (1.0-4.8) k/uL Monocytes # 0.3 (0-1.0) k/uL Eosinophils # 0.1 (0-0.7) k/uL Basophils # 0.0 (0-0.2) k/uL PT 10.6 (10.0-12.5) sec INR 0.9 (<1.2) APTT 23.7 (22.0-30.0) sec D-Dimer 0.19 (<0.60) mg/L FEU Sodium 138 (137-145) mmol/L Potassium 4.1 (3.5-5.1) mmol/L Chloride 102 (98-107) mmol/L Carbon Dioxide 32 H (22-30) mmol/L Anion Gap 4 mmol/L BUN 13 (7-17) mg/dL Creatinine 0.64 (0.52-1.04) mg/dL Est GFR (CKD-EPI)AfAm >90 (>60 ml/min/1.73 sqM) Est GFR (CKD-EPI)NonAf >90 (>60 ml/min/1.73 sqM) Glucose 83 (74-99) mg/dL Calcium 9.9 (8.4-10.2) mg/dL Magnesium 2.1 (1.6-2.3) mg/dL Total Bilirubin 0.7 (0.2-1.3) mg/dL AST 22 (14-36) U/L ALT 17 (4-34) U/L Alkaline Phosphatase 56 (38-126) U/L Troponin I (0.000-0.034) ng/mL Total Protein 6.8 (6.3-8.2) g/dL Albumin 4.2 (3.5-5.0) g/dL TSH 1.910 (0.465-4.680) mIU/L Free T4 1.29 (0.78-2.19) ng/dL 04/30/24 Range/Units 15:43 WBC (3.8-10.6) k/uL RBC (3.80-5.40) m/uL Hgb (11.4-16.0) gm/dL Hct (34.0-46.0) % MCV (80.0-100.0) fL MCH (25.0-35.0) pg MCHC (31.0-37.0) g/dL RDW (11.5-15.5) % Plt Count (150-450) k/uL MPV Neutrophils % % Lymphocytes % % Monocytes % % Eosinophils % % Basophils % % Neutrophils # (1.3-7.7) k/uL Lymphocytes # (1.0-4.8) k/uL Monocytes # (0-1.0) k/uL Eosinophils # (0-0.7) k/uL Basophils # (0-0.2) k/uL PT (10.0-12.5) sec INR (<1.2) APTT (22.0-30.0) sec D-Dimer (<0.60) mg/L FEU Sodium (137-145) mmol/L Potassium (3.5-5.1) mmol/L Chloride (98-107) mmol/L Carbon Dioxide (22-30) mmol/L Anion Gap mmol/L BUN (7-17) mg/dL Creatinine (0.52-1.04) mg/dL Est GFR (CKD-EPI)AfAm (>60 ml/min/1.73 sqM) Est GFR (CKD-EPI)NonAf (>60 ml/min/1.73 sqM) Glucose (74-99) mg/dL Calcium (8.4-10.2) mg/dL Magnesium (1.6-2.3) mg/dL Total Bilirubin (0.2-1.3) mg/dL AST (14-36) U/L ALT (4-34) U/L Alkaline Phosphatase (38-126) U/L Troponin I <0.012 (0.000-0.034) ng/mL Total Protein (6.3-8.2) g/dL Albumin (3.5-5.0) g/dL TSH (0.465-4.680) mIU/L Free T4 (0.78-2.19) ng/dL Disposition Clinical Impression: Palpitations Disposition: HOME SELF-CARE Condition: Stable Instructions (If sedation given, give patient instructions): Heart Palpitations (ED) Additional Instructions: Please do follow-up with primary care physician beginning of the week. Continue with plan for Holter monitoring, call for sooner if possible. Consider echo. Return for increased heart rate, increased palpitations, chest pain or shortness of breath, worsening symptoms or any other concerns. Is patient prescribed a controlled substance at d/c from ED?: No Referrals: Nimesh Bob DO [Primary Care Provider] - 1-2 days Stoney Celestin MD [STAFF PHYSICIAN] - 1-2 days Time of Disposition: 17:45
--- NOTE | 2024-04-30 15:41 | XR ---
EXAMINATION TYPE: XR chest 2V DATE OF EXAM: 04/30/2024 3:33 PM COMPARISON: 02/10/2023 CLINICAL INDICATION: Female, 69 years old with history of dysrhythmia, , TECHNIQUE: PA and lateral views FINDINGS: Heart normal size. Mild atherosclerotic arch calcifications. Hyperinflation. Some strandy atelectasis of the lower lungs. Some unchanged minimal blunting of the posterior costophrenic angles on the late ral view probably relates to pleural parenchymal scarring. Otherwise, no consolidation or pleural eff usion. IMPRESSION: COPD. No acute process seen. [facility], Workstation: [id number], 04/30/2024 3:38 PM
[2024-04-30 15:56] LABS: Basophils % (A) 1 %; Eosinophils # (A) 0.1 k/uL (0-0.7); Eosinophils % (A) 2 %; HCT 46.3 % (34.0-46.0); HGB 15.4 gm/dL (11.4-16.0); Lymphocytes # (A) 2.2 k/uL (1.0-4.8); Lymphocytes % (A) 45 %; MCH 33.4 pg (25.0-35.0); MCHC 33.2 g/dL (31.0-37.0); MCV 100.5 fL (80.0-100.0); Mean Platelet Volume 7.1; Monocytes # (A) 0.3 k/uL (0-1.0); Monocytes % (A) 6 %; Neutrophils # (A) 2.2 k/uL (1.3-7.7); Neutrophils % (A) 44 %; Platelet Count 247 k/uL (150-450); RBC 4.61 m/uL (3.80-5.40); RDW 12.2 % (11.5-15.5)
[2024-04-30 16:07] LABS: ALT 17 U/L (4-34); AST 22 U/L (14-36); African American GFR (CKD) >90 (>60 ml/min/1.73 sqM); Albumin 4.2 g/dL (3.5-5.0); Alkaline Phosphatase 56 U/L (38-126); Anion Gap 4 mmol/L; Blood Urea Nitrogen 13 mg/dL (7-17); Calcium 9.9 mg/dL (8.4-10.2); Carbon Dioxide 32 mmol/L (22-30); Chloride 102 mmol/L (98-107); Glucose 83 mg/dL (74-99); Magnesium 2.1 mg/dL (1.6-2.3); Non-African American GFR(CKD) >90 (>60 ml/min/1.73 sqM); Potassium 4.1 mmol/L (3.5-5.1); Sodium 138 mmol/L (137-145); Total Bilirubin 0.7 mg/dL (0.2-1.3); Total Protein 6.8 g/dL (6.3-8.2)
[2024-04-30 16:11] LABS: INR 0.9 (<1.2); Partial Thromboplastin Time 23.7 sec (22.0-30.0); Prothrombin Time 10.6 sec (10.0-12.5)
[2024-04-30 16:39] LABS: T4, Free (Free Thyroxine) 1.29 ng/dL (0.78-2.19)
[2024-04-30 18:00] VITALS: BP 136/81; PULSE 79; RESP 20; TEMP 98.1
== END 2024-04-30 18:01 | disposition home or self-care (01) ==
LOC: EC 13:50
DX: R00.2 Palpitations (principal); Z88.5 Allergy status to narcotic agent; Z87.891 Personal history of nicotine dependence
CPT/HCPCS: 36415; 71046; 80053; 83735; 84439; 84443; 84481; 84484; 85025; 85379; 85610; 85730; 93005; 99285

== ENCOUNTER → 2024-08-04 | Outpatient (CLI) | payer MEDICARE ==
--- NOTE | 2024-08-04 11:54 | MM ---
Reason for Exam: Screening (asymptomatic). Last mammogram was performed 1 year(s) and 3 month(s) ago. Patient History: Menarche at age 11. First Full-Term at age 15. Postmenopausal. Patient used Hormonal Contraceptives for 10 years. Maternal aunt had breast cancer, age 91. Risk Values: Aditi 5 year model risk: 1.2%. NCI Lifetime model risk: 3.7%. Prior Study Comparison: 12/14/2020 Bilateral Screening Mammogram, [facility]. 01/07/2022 Bilateral MG screening mammo w CAD, [facility]. 05/05/2023 Bilateral MG 3D screening mammo w/cad, [facility]. Tissue Density: The breasts are heterogeneously dense, which may obscure small masses. Findings: Analyzed By CAD. Right breast: There is no suspicious group of microcalcifications or new suspicious mass. Benign-appearing calcifications right breast. Left breast: There is no suspicious group of microcalcifications or new suspicious mass. Overall Assessment: Benign, BI-RAD 2 Management: Screening Mammogram of both breasts in [address] [facility] will attempt to contact patient to return for supplemental views and ultrasound if indicated. Patient should continue monthly self-breast exams. A clinical breast exam by your physician is recommended on an annual basis. This exam should not preclude additional follow-up of suspicious palpable abnormalities. Note on Aditi scores and lifetime risk: 1. A Aditi score greater than 3% is considered moderate risk. If this is the case, consider specialist referral to assess eligibility for a risk reducing agent. 2. If overall lifetime risk for the development of breast cancer is 20% or higher, the patient may qualify for future screening with alternating mammogram and breast MRI. [facility], , 08/04/2024 11:51 AM. Electronically signed and approved by: Geovany Quiros DO
== END | disposition home or self-care (01) ==
LOC: RADMAMWWP 11:28
PROVIDERS: ATTEND Family Medicine
DX: Z12.31 Encounter for screening mammogram for malignant neoplasm of breast (principal); R92.333 Mammographic heterogeneous density, bilateral breasts; Z78.0 Asymptomatic menopausal state; Z80.3 Family history of malignant neoplasm of breast; Z92.0 Personal history of contraception
CPT/HCPCS: 77063; 77067

== ENCOUNTER 2024-10-19 09:18 | Day surgery (SDC) | payer MEDICARE ==
[2024-10-18 09:00] VITALS: BMI 19.0
[~2024-10-19 09:18] MED LIST changes: -LACTATED RINGERS 1,000 ML IV SCH; +LIDOCAINE 1% (10MG/ML) FOR IV START INTRADERMA PRN
[2024-10-19] MEDS: IV FLUID CONTINUATION 1,000 ML IV ONE (09:35)
[2024-10-19 09:40] VITALS: TEMP 98.5
[2024-10-19] MEDS: LACTATED RINGERS 1,000 ML IV SCH (09:46)
[2024-10-19] MEDS ORDERED: PROPOFOL 10 MG/ML 20 ML VIAL IV ONE (10:28)
--- NOTE | 2024-10-19 11:05 | P.PCN ---
Date of Procedure: 10/19/24 Procedure(s) Performed: BRIEF HISTORY: Patient is a 69-year-old pleasant white female scheduled for an elective colonoscopy as a part of screening for colon polyps. Her last colonoscopy was 3 years ago and was noted to have an adenoma. History of diverticular disease for which she underwent sigmoid colectomy several years ago. PROCEDURE PERFORMED: Colonoscopy with snare polypectomy, Endo Clip placement and tattooing with Lakesha ink. PREOPERATIVE DIAGNOSIS: Screening for history of colon polyps. IV sedation per Anesthesia. PROCEDURE: After informed consent was obtained, the patient, was brought into the endoscopy unit. IV sedation was administered by Anesthesia under continuous monitoring. Digital rectal examination was normal. Initially the Olympus CF-160 flexible video colonoscope was then inserted in the rectum, gradually advanced into the cecum without any difficulty. Careful examination was performed as the scope was gradually being withdrawn. Ileocecal valve and the appendiceal orifice were visualized and appeared normal. Prep was excellent. Mucosa of the cecum, appeared normal. In the ascending colon there was a 5 mm polyp removed by cold snare polypectomy. The hepatic flexure there was a 4 cm linear broad-based polyp that was removed by piecemeal snare polypectomy followed by Endo Clip placement and tattooing with Lakesha ink. Colonoscopy with polypectomy performed. Ascending colon, transverse colon, descending colon, sigmoid colon, and rectum appeared normal. The anastomosis was located at 12 cm from anal verge that appeared normal. Retroflexion was performed in the rectum and no lesions were seen. The patient tolerated the procedure well. IMPRESSION: 4 cm linear/broad-based polyp in the hepatic flexure status post piecemeal snare polypectomy followed by Endo Clip placement and tattooing with Lakesha ink and almost complete polypectomy accomplished 5 mm ascending colon polyp status post cold snare polypectomy Anastomosis located at 12 cm from anal verge that appeared normal RECOMMENDATIONS: Findings of this examination were discussed with the patient as well as her family.. She was advised to follow with the biopsy results. Follow-up in the office in 1 week. Recent biopsy results we will plan on repeat colonoscopy in 3 to 6 months
[2024-10-19 11:29] VITALS: BP 121/80; PULSE 71; RESP 18
== END 2024-10-19 11:58 | disposition home or self-care (01) ==
LOC: ORWHC2ENDO 09:18
PROVIDERS: ATTEND Internal Medicine Gastroenterology
DX: Z12.11 Encounter for screening for malignant neoplasm of colon (principal); D12.2 Benign neoplasm of ascending colon; D12.3 Benign neoplasm of transverse colon; J44.9 Chronic obstructive pulmonary disease, unspecified; Z86.0101 Personal history of adenomatous and serrated colon polyps; Z90.49 Acquired absence of other specified parts of digestive tract; Z86.711 Personal history of pulmonary embolism; Z79.51 Long term (current) use of inhaled steroids; Z79.899 Other long term (current) drug therapy; Z88.5 Allergy status to narcotic agent
CPT/HCPCS: 88305; 45385; 45381; J2704; 44404